=== PATIENT | male | born 1940 | race Caucasian/White ===

== ENCOUNTER 2024-06-11 22:40 | Inpatient (IN) | payer OTHER, MEDICARE, SELFPAY ==
[2024-06-11 19:26] VITALS: BP 111/76
--- NOTE | 2024-06-11 19:57 | ED.GENMED ---
History of Present Illness
General
Chief Complaint: Abdominal Symptoms
Source: patient and family (daughter)
Exam Limitations: dementia and other (Citizen Of [place] speeking)
Time Seen by Provider: 06/11/24 19:34
History of Present Illness
History of Present Illness:
This is a 84 year old male that comes in with c/o vomiting and slurred speech. Daughter states that last night he stared with Vomiting. States that he felt like he was going to vomit throughout the night. States that today he was very weak. States
that they brought hi to the kitchen table to have something to eat and she felt like his speech was slurred. States that he has had chest pain, SOB, loose stool and abd pain. States that he also c/o a headache. Denies any fever, chills, dizziness,
urinary burning.
Past History
Past History
ED Past Medical History: Arrthythmia (Atrial fib), GERD, Psychiatric (Anxiety, depression) and Other (Dementia Tuberculosis)
ED Past Surgical History: None
Social History
Tobacco: Former smoker
Alcohol: None
Personal:
Living: with family
Review of Systems
Review of Systems
Other source history: family
All Other Systems: ROS reviewed and negative except as documented in HPI and ROS
Constitutional: Reports no symptoms; Denies fever or chills
EENT: Reports no symptoms
Respiratory: Reports trouble breathing; Denies cough
Cardiac: Reports chest pain
ABD/GI: Reports abdominal pain, nausea and vomiting; Denies diarrhea
: Reports no symptoms; Denies dysuria, frequency or urgency
Musculoskeletal: Reports no symptoms
Skin: Reports no symptoms
Neurological: Reports headache; Denies dizzy
Psychiatric: Reports no symptoms
Phy Exam
General Physical Exam
General Presentation: mild distress
General age: appears stated age
General Skin: warm and dry
General Habitus: elderly
General Mental: usual mental status
General Hydration: appears well hydrated
ENT Exam
ENT Exam: TM's normal, pharynx normal and neck supple
Eye Exam
Eye Exam: EOMI
Cardiovascular Exam
Cardiovascular Exam: normal peripheral pulses and irregularly irregular
Pulmonary Exam
Pulmonary Exam: no respiratory distress, chest non tender, no rhonchi, no wheezing, no cough and other (Rales at bases)
Gastrointestinal Exam
Gastrointestinal Exam: normal bowel sounds, non tender, soft, no organomegaly, no pulsatile mass and non distended
NIH Stroke Score
Level of Consciousness: 0 - Alert
LOC questions: 0-Answers both correctly
LOC Commands: 0-Performs both correctly
Best Gaze: 0-Normal
Visual Simmons: 0=Normal, no visual loss
Facial palsy: 0=Normal, symmetrical
Motor - Right Arm: 0=No drift 10 seconds
Motor - Left Arm: 0=No drift 10 seconds
Motor - Right Le-No drift 5 seconds
Motor - Left Le-No drift 5 seconds
Limb Ataxia: 0-Absent
Sensation: 0-Normal
Best Language: 0-No aphasia
Dysarthria: 0-Normal
Extinction and Inattention: 0-No abnormality
Total Score:: 0
Musculoskeletal Exam
Musculoskeletal Exam: full ROM and no edema
Skin Exam
Skin Exam: normal color, warm/dry, no rash and no petechia
Psychiatric Exam
Psychiatric Exam: normal mood/affect
Course
Orders/Labs/Results
Orders:
Orders
06/11/24 19:41
Electrocardiogram (*1) Urgent
Reason for Study: Abdominal Pain
IV Insert/Care/Rem.- Treatment PRN
06/11/24 19:42
EKG- Treatment ONCE
06/11/24 19:51
Basic Metabolic Panel Urgent
COVID-19 Antigen Urgent
Source: Nasal Swab
Complete Blood Count/With Diff Urgent
NT-proBNP Urgent
Troponin I Urgent
06/11/24 19:56
CT Head W/o Iv Contrast Urgent
Comment:
Reason For Exam: Slurred speech,
06/11/24 19:57
CR Chest - 2 Views Urgent
Comment:
Reason For Exam: SOB, Chest pain
06/11/24 19:58
Ondansetron Injectable [Zofran] 4 mg IV NOW STA
06/11/24 20:30
Prothrombin Time Urgent
06/11/24 21:24
Azithromycin 500 mg/250 ml [Zithromax Infusion] 500 mg in 250 ml IV NOW
CefTRIAXone [Rocephin] 1,000 mg IV NOW STA
06/11/24 21:26
Furosemide [Lasix] 40 mg IV NOW STA
06/11/24 21:35
EKG- Treatment ONCE
06/11/24 21:47
Lactic Acid Urgent
Potassium Urgent
Blood Culture Urgent
ALENA Source: Blood/Venous
Specimen Description:
Blood Culture Urgent
ALENA Source: Blood/Venous
Specimen Description:
06/11/24 22:02
Aspirin 325 mg PO NOW STA
06/11/24 22:07
Admit/Transfer Patient As Directed
Co-Sign Provider:
Level of Care: Inpatient admission
Assign to:: IVU
Physician / Group: orion
Diagnosis: acute hypoxia
Reason for Hospitalization: acute hypoxia
Expected length of stay greater than two midnights?: Yes
ELOS- Estimated Length of Stay in days: 3
I certify the patient meets the requirements for IP care: Yes
PRN Pain Medication Management As Directed
May give lesser potent ordered pain med per pt: Yes
preference::
Protocol:: Medication orders for pain may be administered in a
manner that supports deferring to patient preference
when the pt is:
- Requesting an ordered lesser potent pain medication.
Least to most potent pain medications are defined
as: acetaminophen < NSAID < tramadol < opioids
(morphine, oxycodone, hydromorphone).
- Requesting a lesser dose of the same medication IF
ORDERED.
- Requesting a less intrusive route of administration
if both routes are prescribed by the provider (PO <
IV).
06/11/24 22:08
Code Status As Directed
Resuscitation Status: Do not resuscitate
Reached after discussion with pt or family/Healthcare POA: Yes
DNR Bracelet Application ONCE
06/11/24 22:13
CT Abdomen W/o Iv Contrast Routine
Comment:
Reason For Exam: abdominal pain
06/11/24 22:17
Heparin Protocol- PTT Orders As Directed
PTT per Heparin protocol: -Obtain CBC and baseline PTT - if not already collected.
-Obtain PTT 6 hours from start of infusion. Then, every 6 hours until 2 consecutive
PTT's are therapeutic. Then, PTT Daily.
-With each rate change, obtain PTT every 6 hours until 2 consecutive PTT's are
therapeutic. Then, PTT Daily.
Notify MD As Directed
Notify physician if: PTT is greater than or equal to 200.
06/11/24 22:30
Heparin 39339 Units/250 ml 25,000 units in 250 ml IV PER PROTOCOL
Weight to be used for heparin protocol in kilograms (kg):: 86.7
Protocol:: Cardiac Tx/Acute Coronary
PTT Goal Range to be used:: PTT 73 to 111 seconds
Order type:: Initial
INITIAL Infusion Dose (UNITS/KG/hr) & then follow protocol:: 12 units/kg/hr
Infusion Dose in UNITS/hr & then follow protocol (UNITS/hr):: 1,000
INFUSION RATE in mL/hr & then follow protocol (mL/hr):: 10
PTT less than or equal to 64 seconds:: Increase rate by 200 units/hr (+ 2 mL/hr)
PTT 64.1 to 72.9 seconds:: Increase rate by 100 units/hr (+ 1 mL/hr)
PTT 73 to 111 seconds:: Target Range. No change in rate.
PTT 111.1 to 130.9 seconds:: Decrease rate by 100 units/hr (- 1 mL/hr)
PTT 131 to 199.9 seconds:: HOLD for 1 hr. Then decrease rate by 200 units/hr (- 2 mL/hr)
PTT greater than or equal to 200 seconds:: HOLD for 2 hrs & Notify Provider. Then decrease by 200 units/hr (-
2 mL/hr)
Lab follow-up:: Each change, PTT q6h until 2 consecutive are therapeutic. Then PTT
daily.
06/11/24 22:36
Add On- LAB Stat
Tests Added?: ptt
06/11/24 22:45
Complete Blood Count/No Diff Urgent
Comment: Obtain baseline before beginning heparin infusion if not already collected
PTT Urgent
Comment: Obtain baseline before beginning heparin infusion if not already collected
Troponin I Urgent
06/11/24 22:50
Electrocardiogram (*1) Urgent
Reason for Study: Chest Pain
Other Reason for Exam: Repeat with Troponin
06/11/24 23:39
Urinalysis Reflex To Culture Urgent
Date Specimen was Collected: 06/11/24
Time Specimen was Collected: 23:37
06/12/24 00:37
Acetaminophen [Tylenol] 650 mg PO Q4HPRN PRN
Dextrose 50%-Water [Dextrose 50% Syringe] 12.5 grams IV [id number] PRN
Glucagon [GlucaGen] 1 mg IM PRN PRN
Ipratropium/Albuterol Sulfate [Duoneb] 3 ml INH R Q4HPRN PRN
06/12/24 00:37
CARDIOLOGY CONSULT Routine
Consulting Provider: Gama Thomas
Was physician already notified: Yes
Glycohemoglobin (HgbA1c) Routine
Legionella Urinary Antigen Routine
ALENA Source: Urine
Specimen Description:
Activity As Directed
Activity Level: Out of Bed-Early Mobility
Bedside Glucose Monitoring As Directed
Frequency: AC&HS
Additional Instructions:: Change to q6h if pt on TPN, tube feeding or not eating
INT (Intravenous Needle Therapy) As Directed
Comment: maintain peripheral IV access
Intake/ Output As Directed
Frequency: Per unit guidelines
Pneumatic Compression Sleeves As Directed
Type: Thigh high
Vital Signs As Directed
Frequency: Per unit guidelines
Vital Signs As Directed
Frequency: q4h
Weight As Directed
Frequency: Once
Comment: on admission
O2 Therapy [RESP] Routine
Titrate/Wean O2 to maintain O2 sat greater than (%): 95
Special Instructions: Wean as tolerated
Pt Eval And Treat Routine
Activity Level: As Tolerated
Speech Therapy Eval & Treat Routine
DX Deep Vein Thrombosis Video Routine
06/12/24 02:00
Electrocardiogram (*1) Q6H
Reason for Study: Chest Pain
Comment: at admission and Q3H for total of 3, to be done with each troponin
Troponin I Q3H
Comment: at admit & Q3H for 3 total including ED draws, obtain ECG with each level
Ondansetron Injectable [Zofran] 4 mg IV Q6HPRN PRN
06/12/24 05:00
Troponin I Q3H
Comment: at admit & Q3H for 3 total including ED draws, obtain ECG with each level
06/12/24 06:00
Echo 2D MMode Color/Doppler IN AM
Reason for Study: sob
NPO
Allow oral meds: Yes
Allow clear liquids: No
Basic Metabolic Panel IN AM
Cardiovascular Evaluation IN AM
Complete Blood Count/No Diff IN AM
TSH Reflex To Free T4 IN AM
06/12/24 07:30
Insulin Aspart Corrective Low [Novolog Flexpen-Low Resistance] See Protocol SC AC
06/12/24 08:00
Electrocardiogram (*1) Q6H
Reason for Study: Chest Pain
Comment: at admission and Q3H for total of 3, to be done with each troponin
Troponin I Q3H
Comment: at admit & Q3H for 3 total including ED draws, obtain ECG with each level
Aspirin Chewable [Low Strength Aspirin] 81 mg PO DAILY
06/12/24 11:00
Troponin I Q3H
Comment: at admit & Q3H for 3 total including ED draws, obtain ECG with each level
06/13/24 06:00
Basic Metabolic Panel IN AM
Complete Blood Count/No Diff IN AM
Complete Blood Count/No Diff Q2D
Comment: Notify MD if platelet count is <130,000 or decreases by 50% from baseline
06/14/24 06:00
Basic Metabolic Panel IN AM
Complete Blood Count/No Diff IN AM
06/15/24 06:00
Basic Metabolic Panel IN AM
Complete Blood Count/No Diff IN AM
Complete Blood Count/No Diff Q2D
Comment: Notify MD if platelet count is <130,000 or decreases by 50% from baseline
06/16/24 06:00
Basic Metabolic Panel IN AM
Complete Blood Count/No Diff IN AM
06/17/24 06:00
Complete Blood Count/No Diff Q2D
Comment: Notify MD if platelet count is <130,000 or decreases by 50% from baseline
06/19/24 06:00
Complete Blood Count/No Diff Q2D
Comment: Notify MD if platelet count is <130,000 or decreases by 50% from baseline
06/21/24 06:00
Complete Blood Count/No Diff Q2D
Comment: Notify MD if platelet count is <130,000 or decreases by 50% from baseline
06/23/24 06:00
Complete Blood Count/No Diff Q2D
Comment: Notify MD if platelet count is <130,000 or decreases by 50% from baseline
06/25/24 06:00
Complete Blood Count/No Diff Q2D
Comment: Notify MD if platelet count is <130,000 or decreases by 50% from baseline
06/27/24 06:00
Complete Blood Count/No Diff Q2D
Comment: Notify MD if platelet count is <130,000 or decreases by 50% from baseline
Abnormal Lab Results
06/11/24 06/11/24 06/11/24
19:51 20:30 21:47
WBC 26.8 H 10^3/uL
(4.8-10.8)
RBC 4.65 L 10^6/uL
(4.70-6.10)
Hgb 12.7 L g/dL
(13.0-18.0)
MCHC 32.4 L g/dL
(33.0-37.0)
RDW 16.9 H %
(11.5-14.5)
MPV 10.5 H fL
(7.4-10.4)
Abs Immat Gran (auto) 0.7 H 10^3/uL
(0-0.05)
Absolute Neuts (auto) 21.2 H 10^3/uL
(1.4-6.5)
Absolute Monos (auto) 3.6 H 10^3/uL
(0.1-0.6)
Immature Gran % 2.5 H %
(0-0.5)
Neutrophils % 79.4 H %
(42.2-75.2)
Lymphocytes % 4.4 L %
(20.5-51.1)
Monocytes % 13.6 H %
(1.7-9.3)
PT 16.8 H Sec
(11.4-14.6)
Potassium 5.2 H mmol/L
(3.5-5.1)
Carbon Dioxide 19 L mmol/L
(22-30)
BUN 47 H mg/dl
(9-20)
Creatinine 2.3 H mg/dL
(0.7-1.3)
Glucose 316 H mg/dl
(70-99)
Lactic Acid 2.7 H mmol/L
(0.7-2.0)
Troponin I 15.700 H* ng/ml
06/11/24 19:51
06/11/24 21:47
Leukocytosis, Hgb slightly low. PT 16.8 with INR 1.34, Co2 slightly low. acute renal insufficiency, Hyperglycemia. Troponin elevated 15.700, Pro-BNP 18,100, COVID negative.
Repeat Troponin 14.900
Vital Signs
Initial and Last Documented VS:
Initial Vital Signs
Temp Pulse Resp BP Pulse Ox
98.7 F 107 20 111/76 92
06/11/24 19:26 06/11/24 19:26 06/11/24 19:26 06/11/24 19:26 06/11/24 19:26
Last Documented Vital Signs
Temp Pulse Resp BP Pulse Ox
99.3 F 96 16 129/77 96
06/12/24 01:00 06/12/24 01:00 06/12/24 01:00 06/12/24 01:00 06/12/24 01:00
MDM/Problems Addressed
Differential Diagnosis Includes:
CVA, CHF, coronary syndrome, COVID
MDM/Problems Addressed:
This is a 84 year old male that comes in with c/o vomiting, chest pain, SOB and headache. Daughter states that he c/o chest pain, SOB and he started with vomiting last night.
Will check labs, Chest x-ray, CT head.
Back into see patient and daughter. Explained that he would be admitted as there is bilateral Pneumonia and his Troponin and Pro-BNP are very elevated. Will start on antibiotics and give IV Lasix. Hospitalist notified.
Repeat ECG: rate 105, Atrial fib, right axis, Normal QRS, T wave inversion I, aVL, V2, V3,
Chronic conditions affecting care: Arrhythmia (Atrial fib)
Acute Exacerbation and/or Progression of Chronic Illness: Arrhythmia (Atrial fib)
*Radiology
Radiology exam reviewed: radiology read reviewed (Chest- bibasilar opacities most suspicious for Pneumonia CT head-No acute intracranial abnormality. Chronic Senescent changes and multiple chronic infarcts, as detailed above. )
*Pulse Oximetry
Patient hypoxic: no
*EKG
Interpreted by ED Provider?: Yes
Heart Rate: 102
Rate: tachycardiac
Rhythm: a-fib
[place]: right axis deviation
QRS Pattern: normal QRS
Ischemia: T-wave inversion (I, aVL, V3, V4, V5, V6, )
*Physical Security Specialist Interpretation
Rate: tachycardiac
Interpretation: abnormal
Heart Rate: 116
Rhythm: a-fib
*Critical Care Note
Total Time (30-74mins, 75-104mins- exclusive of procedures): Not Applicable
ED Attending Note
-
Portions of this chart may have been created with voice recognition software.� Occasional wrong word or��sound alike� substitutions may have occurred due to the inherent limitations of voice recognition software.
Discharge Plan
Departure
Patient Disposition: Admit
Date of Disposition: 06/11/24
Time of Disposition: 21:34
Admit to: Telemetry
Presentation/result/management discussed w/ accepting MD/DO: Hospitalist
Patient with high blood pressure during this ER visit?: No
Condition: Good
Covid-19: Negative COVID-19
Discharge Problem:
Pneumonia of both lower lobes, Elevated troponin
Interventions
Interventions:
*Risk Screen - Suicide Last Done: 06/12/24 00:52
*General Assessment Last Done: 06/11/24 19:26
*Neglect/Abuse Screening Last Done: 06/11/24 19:39
*ED COVID-19 Vaccine History Last Done: 06/12/24 00:52
*Nursing Disposition Last Done: 06/12/24 00:49
YO-Fncnzn-Hlbahouwkj Assessment Last Done: 06/11/24 23:55
Discharge Date and Time
Discharge Date/Time: 06/12/24 00:50
[2024-06-11 20:15] LABS: COVID-19 Antigen Negative (Negative); Hematocrit 39.2 % (39.0-52.0); Hemoglobin 12.7 g/dL (13.0-18.0); Mean Corp Hgb Conc. 32.4 g/dL (33.0-37.0); Mean Corpuscular Hgb 27.3 pg (27.0-31.0); Mean Corpuscular Volume 84.3 fL (80.0-94.0); Mean Platelet Volume 10.5 fL (7.4-10.4); Platelet Count 205 10^3/uL (130-400); Red Blood Cell Count 4.65 10^6/uL (4.70-6.10); Red Cell Dist. Width 16.9 % (11.5-14.5); White Blood Cell Count 26.8 10^3/uL (4.8-10.8)
[2024-06-11 20:23] LABS: Blood Urea Nitrogen 47 mg/dl (9-20); Calcium 9.3 mg/dl (8.4-10.2); Carbon Dioxide 19 mmol/L (22-30); Chloride 104 mmol/L (98-107); Glucose 316 mg/dl (70-99); Sodium 137 mmol/L (135-145); eGFR 26.98
[2024-06-11] MEDS: ZOFRAN 4 MG IV (20:31)
[2024-06-11 20:33] LABS: NT-proBNP 18100 pg/ml
[2024-06-11 20:37] LABS: % Basophils 0.1 % (0-2); % Immature Granulocytes 2.5 % (0-0.5); % Lymphocytes 4.4 % (20.5-51.1); % Monocytes 13.6 % (1.7-9.3); % Neutrophils 79.4 % (42.2-75.2); Absolute Immature Granulocytes 0.7 10^3/uL (0-0.05); Absolute Lymphocytes 1.2 10^3/uL (1.2-3.4); Absolute Monocytes 3.6 10^3/uL (0.1-0.6); Absolute Neutrophils 21.2 10^3/uL (1.4-6.5); Nucleated Red Blood Cells % 0 % (-)
[2024-06-11 20:55] LABS: INR 1.34; PT 16.8 Sec (11.4-14.6)
[2024-06-11 21:30] VITALS: BP 172/84
--- NOTE | 2024-06-11 21:34 | HPS.HSE ---
Family Physician
-
Family Physician: NOT KNOW UNKNOWN - PT DOES
Chief Complaint
-
vomiting
History of Present Illness
84 year old with PMH for GOUT, Heart murmur,CKD,Alzheimer disease, GOUT presented to us vomiting and right upper abdominal pain since last night. today he was noted weak and trouble speaking today. . he was complaining of chest pain as well. he was
noted worsening sob. denied diarrhea. denied dysuria or hematuria. denied weight gain or swelling .
In er noted elevated trop, chest x ray with pneumonia. and he was requiring 2l of oxygen. patient was administered ceftriaxone, zithro and Lasix in ER. admitting for further management.
Medical History
Past Medical History
Past Medical History: Reports Other
Additional Past Medical History:
CKD stage 3b
htn
Alzheimer disease
dementia
Past Surgical History: Reports None
Social History
Tobacco: Former Smoker
Alcohol: Former
Drug: None
Personal:
Living: With Family
Family History
Family History: Not pertinent
Allergies / Home Medications
Allergies reflects when Allergies were last updated in [employer].
Home Medications with original date entered in [employer]
Allergy/Medication List:
Allergies
Allergy/AdvReac Type Severity Reaction Status Date / Time
No Known Allergies Allergy Verified 01/26/21 11:42
Home Medications
colchicine 0.6 mg tablet 0.6 mg PO BIDPRN PRN gout 10/19/22
Review of Systems
-
Constitutional: Reports Fatigue and Chills
EENT: Reports No Symptoms
Respiratory: Reports Trouble Breathing
Cardiac: Reports Chest Pain
Abdomen/GI: Reports Abdominal Pain and Vomiting
: Reports No Symptoms
Musculoskeletal: Reports No Symptoms
Skin: Reports No Symptoms
Neurological: Reports No Symptoms
Endocrine: Reports No Symptoms
Hematologic/Lymphatic: Reports No Symptoms
Psych: Reports No Symptoms
Physical Exam
Vital Signs
Vital Signs
Temp Pulse Resp BP Pulse Ox
98.7 F 107 20 111/76 92
06/11/24 19:26 06/11/24 19:26 06/11/24 19:26 06/11/24 19:26 06/11/24 19:26
Physical Exam
General: Well Developed, Well Nourished and No Apparent Distress
HEENT: NormoCephalic, Moist mucous membranes and Atraumatic
Respiratory: Clear
Cardiac: S1/S2 and Regular Rhythm; No Murmur or Rub
GI: Soft, Non Tender, Non Distended, Normal Bowel Sounds and Tender; No Organomegaly
Rectal: Deferred by Provider
Musculoskeletal: No Clubbing, No Cyanosis and No Edema
Skin: No Rash
Neuro: Nonfocal/grossly intact
Psych: Calm
Laboratory Results
-
06/11/24 19:51
06/11/24 19:51
Laboratory Results
PT 16.8 Sec (11.4-14.6) H 06/11/24 20:30
INR 1.34 06/11/24 20:30
Total Bilirubin Cancelled 06/11/24 19:51
AST Cancelled 06/11/24 19:51
ALT Cancelled 06/11/24 19:51
Alkaline Phosphatase Cancelled 06/11/24 19:51
Troponin I 15.700 ng/ml H* 06/11/24 19:51
Data Reviewed
-
Diagnostic Radiology: Report Reviewed by me
Lab Data: Labs Reviewed by me
Impression/Plan
-
#acute hypoxic respiratory failure likely from bilateral pneumonia
-wbc 26.8
-covid negative
-chest x ray with Bibasilar opacities most suspicious for pneumonia.
-will continued iv zosyn
-Tylenol prn for fever and pain
-continue supplemental oxygen to keep sat>92
-wean as tolerated
-ctm
-nebs prn for sob and wheezing
#new onset atrial fib
-HR controlled
-ctm
-EKG with atrial fib
#right upper quad pain associated with vomiting/nausea
-will keep patient NPO
-speech consult
-obtain CT abdomen and pelvis
#anemia of chronic disease
-hgb sable at 12.7
-no active bleeding
-ctm
#acute kidney injury on CKD stage 3b
-cr 2.3
-ctm
# hyperglycemia
-blood sugar 316
-will obtain a1c
-sliding scale
#elevated trop likely NSTEMI
-trop 15.700
-trend trop, asa and heparin drip
-will obtain TSH, ECHO
-cardiology consulted
#BNP 26563
-patient not overloaded
-ctm
-received a dose of Lasix in ER
#Alzheimer's Dementia
History of gout
-on colchicine prn
DVT ppx: SC Heparin
Code Status: DNR confirmed with daughter
[2024-06-11] MEDS: ROCEPHIN 1000 MG IV (21:38)
[2024-06-11] MEDS: LASIX 40 MG IV (21:39)
[2024-06-11] MEDS: ZITHROMAX INFUSION 250 IV (21:39)
[2024-06-11 22:07] LABS: Potassium 5.2 mmol/L (3.5-5.1)
[2024-06-11 22:09] LABS: Lactic Acid 2.7 mmol/L (0.7-2.0)
[2024-06-11 22:14] VITALS: BMI 30.9
--- NOTE | 2024-06-11 22:21 | W.PN.UPDATE ---
Addendum entered and electronically signed by Krystal Tang MD 06/11/24 22:51:
Changed antibiotic to zosyn.
Original Note:
Update Note
Progress Note Update
This is an addendum to the H&P written by Faith Arshad on 06/11/2024.� Patient seen and examined independently with LEGAL WRITING PROFESSOR.
84-year-old Ethiopian/[place]vian speaking male past medical history of anxiety/depression, Alzheimer's dementia, gout, CKD, presenting with right upper quadrant abdominal pain and vomiting episode yesterday.
He reportedly had chest pain earlier today although very poor historian and does not complain of symptoms.� No history of cardiac problems.
Patient arrives in new onset atrial fibrillation
Labs show leukocytosis of 26.� Creatinine of 2.3.� Potassium 5.2.� Blood sugar of 316.� Lactic acid 2.7.� Troponin 15.� EKG shows atrial fibrillation with slightly elevated heart rate of 102.� There appear to be T wave inversions diffusely ST
depressions in anterolateral leads.� Chest x-ray shows bibasilar opacities suspicious for pneumonia.� COVID-negative.� Cardiac BNP of 18,000.
Chief problem appears to be NSTEMI.� Trend troponins.� Aspirin started.� Heparin drip.� Check echocardiogram.� Patient also new onset atrial fibrillation.� Check TSH.
Patient with leukocytosis and evidence of pneumonia on chest x-ray.� He is also having right upper quadrant abdominal pain.� Check CT abdomen pelvis.� COVID-negative.� Blood cultures pending.� Start ceftriaxone/azithromycin.� NPO.� Lasix was given
by ER although not overtly volume overloaded.
Likely has untreated diabetes.� Check hemoglobin A1c and start insulin sliding scale.
[2024-06-11 22:53] LABS: Hematocrit 38.5 % (39.0-52.0); Hemoglobin 12.7 g/dL (13.0-18.0); Mean Corpuscular Hgb 27.5 pg (27.0-31.0); Mean Corpuscular Volume 83.3 fL (80.0-94.0); Mean Platelet Volume 10.2 fL (7.4-10.4); Platelet Count 203 10^3/uL (130-400); Red Blood Cell Count 4.62 10^6/uL (4.70-6.10); White Blood Cell Count 27.9 10^3/uL (4.8-10.8)
[2024-06-11 23:00] VITALS: BP 136/77
[2024-06-11 23:05] LABS: APTT 27.8 Sec (23.4-35.0)
[2024-06-11] MEDS: ASPIRIN 325 MG PO (23:14)
[2024-06-11] MEDS: HEPARIN 25000 UNITS/250 ML IV (23:15)
[2024-06-11 23:53] LABS: Urine Albumin Trace (Neg - Trace); Urine Bilirubin Negative (Negative); Urine Character Clear (Clear); Urine Color Yellow; Urine Glucose Negative (Negative); Urine Ketone Negative (Negative); Urine Leukocyte Negative (Negative); Urine Nitrite Negative (Negative); Urine Occult Blood Negative (Negative); Urine Urobilinogen Negative (Neg - 1+)
[2024-06-12] VITALS (30 sets, daily range): BP systolic 96–161; BP diastolic 62–92; PULSE 98; BMI 28.2
--- NOTE | 2024-06-12 00:18 | W.PN.UPDATE ---
Update Note
Progress Note Update
CT abdomen result shown
Large 2.0x2.0 cm gallstone in the neck of gallbladder. Mildly distended gallbladder with pericholecystic fat stranding and edema concerning of acute cholecystitis. No biliary dilatation.
Small mildly hyperdense exophytic 2.0x2.0 cm lesion from lower RT kidney. No hydronephrosis bilaterally.
Prominent vascular classifications. No AAA.
Small to moderate hiatal hernia.
Mild subsegmental atelectasis at the lung bases. Coronary artery calcifications. Mild cardiomegaly.
Mild degenerative change within the spine.
Patient currently NPO and on zosyn Abx, will add surgery consult.
[2024-06-12] MEDS: DILAUDID 0.25 MG IV (03:00)
[2024-06-12] MEDS: ZOSYN 50 IV ×4 (03:43→22:00)
--- NOTE | 2024-06-12 05:12 | PTCARENOTE ---
Rec'd pt from ED at 0200. PT on TELE monitor in Afib with HR in the 90-100's, VSS, and pt AAO*2. Pt disoriented to time but aware of self and place. Pt nonverbal at times and forgetful at baseline. Pt complained of pain to caregiver and Dilaudid
one time dose given as ordered. Pt with heparin infusing at 1000 units per hour. Pt refused to answer abuse screening from admission with driver merchandiser. RN oriented to pt to unit, room, and call shook with daughter at bedside but placed on bedalarm
for safety given confusion and hx of dementia. Pt resting with call shook in reach and bed alarm activated.
[2024-06-12 05:52] LABS: Hematocrit 37.1 % (39.0-52.0); Mean Corp Hgb Conc. 32.3 g/dL (33.0-37.0); Mean Corpuscular Hgb 27.5 pg (27.0-31.0); Mean Corpuscular Volume 85.1 fL (80.0-94.0); Platelet Count 196 10^3/uL (130-400); Red Blood Cell Count 4.36 10^6/uL (4.70-6.10); Red Cell Dist. Width 16.9 % (11.5-14.5); White Blood Cell Count 22.5 10^3/uL (4.8-10.8)
[2024-06-12 06:00] LABS: APTT 39.2 Sec (23.4-35.0)
[2024-06-12 06:15] LABS: Blood Urea Nitrogen 50 mg/dl (9-20); Calcium 9.2 mg/dl (8.4-10.2); Carbon Dioxide 21 mmol/L (22-30); Chloride 105 mmol/L (98-107); Estimated Creatinine Clearance 18 ml/min; Glucose 158 mg/dl (70-99); HDL Cholesterol 39 mg/dl; LDL Cholesterol, Calculated 64 mg/dl; Potassium 5.2 mmol/L (3.5-5.1); Sodium 141 mmol/L (135-145); Total Cholesterol 115 mg/dl (50-199); Triglyceride 62 mg/dl (10-149); Very Low Density Lipoprotein 12 mg/dl (0-30); eGFR 23.29
[2024-06-12 06:53] LABS: TSH Reflex To Free T4 3.03 uIU/ml (0.47-4.68)
[2024-06-12 06:57] LABS: Glucose - Point of Care 141 mg/dl (70-99)
--- NOTE | 2024-06-12 07:52 | CON.CAR ---
Addendum entered and electronically signed by Gama Thomas MD 06/12/24 12:39:
84-year-old Bolivian-speaking man admitted June 11 with right upper quadrant pain, nausea vomiting and RAFAL on CKD. C CT of abdomen shows cholecystitis with stone in neck of gallbladder, white count 26, troponin 15.7, proBNP 18,100. Diffuse ST
changes slightly worse on EKG. dementia is significant he cannot feed himself. He knows daughter and his . Walks minimally with assistance.
PMH: permanent atrial fibrillation, heart failure with improved EF, mitral regurgitation, CKD, hypertension, Alzheimer's dementia, anemia
Allergies: None
SH: , lives with daughter, former smoker, former alcohol
Outpatient meds: Listed as just colchicine
Current meds: IV heparin, aspirin 81 mg a day, insulin sliding scale and piperacillin
139/82, pulse 106, respiratory 20, afebrile, sats 95%, no acute distress head neck exam unremarkable, limited exam, diminished breath sounds at bases, irregular rate and rhythm, no obvious murmurs JVD okay, abdomen surprisingly tender, extremities
without much edema
Chest x-ray effusions, vascular congestion versus pneumonia
EKG: Atrial fibs, lateral and anterior ST depression, relatively rapid ventricular response
Hemoglobin 12, white count 22.5, potassium 5.2, BUN/creatinine 52.6, creatinine was 1.8
September 2022, proBNP 18,000 100, troponin flat at 16.4
Plan:
He presents with myocardial injury that is probably non-ACS related related to increased demand superimposed on underlying obstructive CAD. He has permanent atrial fibrillation with a ventricular response that is reasonable despite the absence of
beta-blockers, etc.
His current acute issue is cholecystitis. He has significant acute kidney injury on CKD.
I discussed options with daughter. Daughter believes he would want cholecystostomy tube despite his poor quality of life.
Regarding his presumed non-ACS troponin myocardial injury he can proceed as planned with cholecystostomy tube at elevated but not prohibitive cardiac risk. Daughter is aware of our inability to predict serious or life-threatening complications,
would estimate risk as less than 10% mortality short-term while in hospital.
Await echocardiogram.
No role for invasive procedures from a cardiac standpoint given current situation.
Consider renal consultation
Eventually consider anticoagulation, beta-campos, etc. other optimization of GDMT MT as possible.
Original Note:
Consultation
Consultation Request
Date/Time Consultation Requested: 06/11/2024
Date/Time Consultation Performed: 06/12/2024
Requesting Provider: Dr. Tang
Performing Provider: Trinidad Pena PA-C for Dr. LENNY Thomas
Reason for Consultation: abnormal troponin
Medical History
-
History of Present Illness:
Patient is an 84-year-old male with past medical history significant for permanent atrial fibrillation, recovered cardiomyopathy, mitral regurgitation, CKD, hypertension, Alzheimer dementia, chronic anemia who presents to emergency department
06/11/2024 with complaints of right upper abdominal pain, nausea, shortness of breath and chest discomfort. Patient found to have leukocytosis of 26 and RAFAL on CKD. Chest x-ray concerning for bilateral pneumonia. CT of abdomen with gallstone in
neck of gallbladder with mildly distended gallbladder and pericholecystic fat stranding and edema concerning of acute cholecystitis. ProBNP elevated at 18,100. Elevated troponin 15.7 initially and slowly trending up. EKG shows atrial fibrillation
with reasonably controlled ventricular response and slightly worsening ST-T wave abnormality concerning for anterolateral ischemia. Patient received 1 dose of IV Lasix in emergency department and started on IV antibiotics. Patient currently n.p.o.
Patient's daughter at bedside. She helps to provide some history. Patient follows with [facility] for primary care and does not have outside sign manufacturer. Primary care physician does housecalls. Daughter does not think he has had an
EKG recently. She was unaware that he had any cardiac conditions. She reports he has dementia and is rather nonambulatory. He is able to ambulate very short distances with assistance utilizing a walker.
PMH:
Permanent atrial fibrillation
Chronic heart failure with reduced ejection fraction
Cardiomyopathy
Mitral regurgitation
CKD stage 3b
htn
Alzheimer disease
dementia
Gout
Chronic anemia
Prior bilateral strokes
Past Medical History
Past Medical History: Other (See HPI)
Past Surgical History: None
Social History
Tobacco: Former Smoker
Alcohol: Former
Drug: None
Living: [facility]ent[facility]
Family History
Family History: Reviewed & Not Pertinent
Allergies / Home Medications
Allergy/AdvReac Type Severity Reaction Status Date / Time
No Known Allergies Allergy Verified 01/26/21 11:42
�Medication �Instructions �Recorded �Confirmed �Type
colchicine 0.6 mg tablet 0.6 mg PO BIDPRN PRN gout 10/19/22 06/11/24 History
Review of Systems
-
History Source: Family (daughter)
Physical Exam
Vital Signs
Temp Pulse Resp BP Pulse Ox
98.1 F 105 18 142/75 95
06/12/24 07:00 06/12/24 05:45 06/12/24 07:00 06/12/24 05:43 06/12/24 07:00
GEN: No distress, pleasantly demented, in no acute distress
HEENT: supple, anicteric, mmm
LUNGS: Coarse breath sounds bilaterally CTA, with faint wheezes
CV: Irregularly irregular, S1/S2, no murmur, rub or gallop
ABD: soft, BS+, NT/ND
EXT: Trace edema bilateral
NEURO: Gross non-focal
SKIN: No rash
Lab Results
06/12/24 05:38
06/12/24 05:38
Troponin I 16.400 ng/ml H* 06/12/24 05:38
Gnn-I-Ykxmsufqarj Pept 96558 pg/ml 06/11/24 19:51
Impression / Plan
-
PCP: [facility]
Grain Operator: none prior to admission, initial consult Dr. Gama Thomas
Impression:
Presented 06/11/2024 with right upper abdominal pain with vomiting, chest pain, shortness of breath
Acute cholecystitis
Acute hypoxic respiratory insufficiency
Bilateral pneumonia
Leukocytosis
Abnormal troponin, suspect NSTEMI
Acute heart failure with preserved ejection fraction proBNP 18,100
Hyperkalemia
RAFAL on CKD
Permanent atrial fibrillation
Cardiomyopathy, recovered
Mitral regurgitation
CKD stage 3b
htn
Alzheimer disease
dementia
Gout
Chronic anemia
Prior bilateral strokes
Echo 06/12/2024: EF 55 to 60%, mild concentric LVH, mild MR, mild AI
Echo 06/20/2013: EF 35 to 40%, global hypokinesis, moderate MR
Plan:
Presented 06/11/2024 with right upper abdominal pain with vomiting, chest pain, shortness of breath
CT of abdomen with large gallstone in neck of gallbladder as well as mildly distended gallbladder with pericholecystic fat stranding and edema concerning of acute cholecystitis. Continue antibiotics. Currently n.p.o. per primary service. Surgery
has been consulted
Acute hypoxic respiratory insufficiency with chest x-ray concerning for bilateral pneumonia on chest x-ray. Continue antibiotics per primary service.
Blood cultures pending. COVID-negative
Abnormal troponin initial 15.7 and slowly trending upward. Concern for NSTEMI. Continue to monitor and trend to peak. EKG with atrial fibrillation with slightly worsening ST-T wave abnormality in annika-lateral leads. Continue IV heparin. If able
to tolerate orals start low dose beta-campos. CKD current prevents initiation of CRIS/ARB at this time
Acute heart failure with preserved ejection fraction, proBNP 18,100. Given dose of IV Lasix in emergency department. Would continue IV diuresis.
Echo from 2012 showed global hypokinesis with a EF of 35 to 40% and moderate MR. Repeat echo this admission shows recovered ejection fraction with mild MR and AI.
Found to have atrial fibrillation on admission. This appears to be permanent upon review of prior EKGs going back as far as 2020 patient was in rate atrial fibrillation. Rate control appears to be reasonable not on any AV kandi blockers.
Patient currently on heparin drip. Will need to consider eventual anticoagulation if no procedures are planned. Unclear why patient was not on OAC prior to admission. Although daughter reports she was never told he had an irregular heart rhythm.
HPI 06/12/2024:
Patient is an 84-year-old male with past medical history significant for permanent atrial fibrillation, cardiomyopathy recovered, mitral regurgitation, CKD, hypertension, Alzheimer dementia, chronic anemia who presents to emergency department
06/11/2024 with complaints of right upper abdominal pain, nausea, shortness of breath and chest discomfort. Patient found to have leukocytosis of 26 and RAFAL on CKD. Chest x-ray concerning for bilateral pneumonia. CT of abdomen with gallstone in
neck of gallbladder with mildly distended gallbladder and pericholecystic fat stranding and edema concerning of acute cholecystitis. ProBNP elevated at 18,100. Elevated troponin 15.7 initially and slowly trending up. EKG shows atrial fibrillation
with reasonably controlled ventricular response and slightly worsening ST-T wave abnormality concerning for anterolateral ischemia. Patient received 1 dose of IV Lasix in emergency department and started on IV antibiotics. Patient currently n.p.o.
Patient's daughter at bedside. She helps to provide some history. Patient follows with [facility] for primary care and does not have outside sign manufacturer. [facility] Daughter does not think he has had an
EKG recently. She was unaware that he had any cardiac conditions. She reports he has dementia and is rather nonambulatory. He is able to ambulate very short distances with assistance utilizing a walker.
Data Reviewed
-
EKG: Report Reviewed by me, Discussed with Physician, Discussed with Patient and Discussed with Family
Radiology: Report Reviewed by me, Discussed with Physician, Discussed with Patient and Discussed with Family
CT Scan: Report Reviewed by me, Discussed with Physician, Discussed with Patient and Discussed with Family
Medical Tests (Nuc Med, Echo etc): Image Personally Visualized and interpreted, Report Reviewed by me, Discussed with Physician, Discussed with Patient and Discussed with Family
Labs: Labs Reviewed by me, Discussed with Physician and Discussed with Nurse
Old Records: Reviewed
[2024-06-12] MEDS: LOW STRENGTH ASPIRIN 81 MG PO (08:12)
[2024-06-12] MEDS: NOVOLOG FLEXPEN-LOW RESISTANCE SC ×3 (08:32→17:52)
[2024-06-12 08:38] LABS: Glycohemoglobin (HgbA1c) 5.2 % (4.0-5.6)
[2024-06-12 09:50] LABS: ALT (SGPT) 20 U/L (0-50); AST (SGOT) 110 U/L (17-59); Albumin 3.6 g/dl (3.5-5.0); Alkaline Phosphatase 76 U/L (38-126); Direct Bilirubin 0.3 mg/dl (0.0-0.4); Total Bilirubin 1.6 mg/dl (0.2-1.3); Total Protein 7.5 g/dl (6.3-8.2)
--- NOTE | 2024-06-12 11:16 | CON.GS ---
Medical History
-
Chief Complaint: Abdominal pain and weakness
History of Present Illness:
Patient is a 84 yo M with a PMH of Alzheimer's disease, dementia, HTN, HLD, CHF, and CKD who presents with malaise and RIGHT sided abdominal discomfort. Patient is Lithuanian-speaking only. Daughter at bedside provides translation services. Symptoms
began Tuesday evening with nausea and vomiting. Daughter initially attributed his symptoms to consistency of food, which she states has been an issue in the past. His symptoms persisted. Associated malaise, slurred speech, and low-grade fevers.
Associated RIGHT sided abdominal discomfort. No reports of jaundice, pale stools, or tea colored urine. No reports of chest pain or worsening shortness of breath. He was admitted overnight to the cardiac ICU with A-fib and concern for a NSTEMI.
Past Medical History
Past Medical History: Arrhythmias (Afib), CHF, HTN, Psychiatric (Alzheimer's dementia) and Renal Failure
Past Surgical History: None
Social History
Tobacco: Non-Smoker
Alcohol: Former
Drug: None
Personal:
Living: With Family
Family History
Family History: Reviewed & Not Pertinent
Allergies / Home Medications
Allergy/AdvReac Type Severity Reaction Status Date / Time
No Known Allergies Allergy Verified 01/26/21 11:42
�Medication �Instructions �Recorded �Confirmed �Type
colchicine 0.6 mg tablet 0.6 mg PO BIDPRN PRN gout 10/19/22 06/11/24 History
Review of Systems
-
A 10 point review of systems was completed, and was negative except as per HPI.
Physical Exam
Vital Signs
Temp Pulse Resp BP Pulse Ox
97.4 F 105 20 135/79 95
06/12/24 11:14 06/12/24 09:00 06/12/24 11:14 06/12/24 08:00 06/12/24 11:14
06/11/24 06/12/24 06/13/24
06:59 06:59 06:59
Actual Weight 76.9 kg
Body Mass Index (BMI) 28.2
Lab Results
06/12/24 05:38
06/12/24 05:38
WBC 22.5 10^3/uL (4.8-10.8) H 06/12/24 05:38
Hgb 12.0 g/dL (13.0-18.0) L 06/12/24 05:38
Hct 37.1 % (39.0-52.0) L 06/12/24 05:38
Plt Count 196 10^3/uL (130-400) 06/12/24 05:38
Abs Immat Gran (auto) 0.7 10^3/uL (0-0.05) H 06/11/24 19:51
Neutrophils % 79.4 % (42.2-75.2) H 06/11/24 19:51
Physical Exam
General: Well Developed, Well Nourished and No Apparent Distress
HEENT: Normocephalic and Anicteric
Respiratory: Non Labored Respirations
Cardiac: Irregular Rhythm
GI: Soft, Non Distended, Tender (mild RUQ), Obese and Other (Non-peritoneal)
Musculoskeletal: No Edema
Skin: Warm and Dry
Neuro: Nonfocal/Grossly Intact
Data Reviewed
-
CT Scan: Image Personally Visualized and interpreted and Report Reviewed by me
Labs: Labs Reviewed by me
Assessment / Plan
-
Patient is an 84 yo M p/w acute cholecystitis in the setting of A-fib and NSTEMI
The natural history and pathophysiology of biliary and stone disease was briefly reviewed. Workup including labs and imaging were reviewed; LFTs and bilirubin pending. Options for management including antibiotics alone, percutaneous
cholecystostomy tube, and cholecystectomy were considered and briefly discussed. Significantly increased risk for general anesthesia at this time given his atrial fibrillation and likely heart attack. He is also at increased risk for complications
given his dementia and CKD. Recommend and plan for cholecystostomy tube placement. Family agrees and willing to proceed. Will need to hold heparin drip for 4 to 6 hours periprocedurally. All questions answered.
-- IR cholecystostomy tube
-- NPO, IVF
-- Abx Zosyn
-- Hold Hep gtt per IR and timing of procedure
--- NOTE | 2024-06-12 12:32 | CM ---
Reviewed chart. Met with Mr. Gallagher and daughter to review discharge plans. Daughter states prior to admission he resides with his daughter in a one story home with two steps to enter. She states prior to admission he ambulates with a rolling
walker. He has a rolling walker at home. She states she assists him with adls. She states he has a prescription plan and uses [facility]. We reviewed [facility] and she is agreeable to [facility]. Telephone call to
[facility] to make the referral. Sent the referral. Medical work-up in progress. The discharge plan is to return home with her daughter and [facility] when medically stable.
[2024-06-12 13:09] LABS: APTT 39.5 Sec (23.4-35.0)
[2024-06-12 13:21] LABS: Glucose - Point of Care 148 mg/dl (70-99)
--- NOTE | 2024-06-12 13:59 | W.PN.HOSP.TC ---
Today's Communication/Plan
-
Intervention radiology for percutaneous cholecystostomy.
IV antibiotics per
Aspiration precautions.
IV heparin.
Adjustment of cardiac regimen for non-STEMI/A-fib
Plan of care discussed with cardiology, surgery, patient's daughter at the bedside, nursing
Assessment / Plan
Assessment / Plan
Impression:
Presentation with acute onset of nausea, vomiting and right upper quadrant pain.
Acute cholecystitis
Bilateral pneumonia possibly secondary due to aspiration acute versus chronic.
Non-STEMI in the settings of acute cholecystitis.
Acute CHF preserved EF.
RAFAL on CKD stage IIIb.
Hyperkalemia
Other conditions:
Permanent atrial fibrillation
Recovered likely ischemic cardiomyopathy.
Mitral regurgitation
CKD stage IIIb with baseline creatinine 1.5�1.8.
Essential hypertension.
Prior strokes
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
Chronic normocytic anemia.
Gout.
Plan:
Acute cholecystitis
Patient presented with acute onset of nausea vomiting and right upper quadrant pain
Elevated white count
Mildly abnormal LFTs with mixed picture of transaminitis and bilirubin elevation
CT scan of the abdomen pelvis findings consistent with stone in gallbladder neck
Not septic on presentation.
Exam relatively benign
In discussion with surgery and given patient's presentation with non-STEMI as well as other risk factors not limited to RAFAL and CKD, dementia, patient would be a poor candidate for surgical intervention.
Plan is for percutaneous cholecystostomy tube placed by interventional radiology
Continue antibiotics.
Bilateral pneumonia.
Suspect acute on chronic aspiration less likely community-acquired pneumonia.
Empiric antibiotics single dose of ceftriaxone/Zithromax in ED. Transition to Zosyn to cover intra-abdominal pathogens with acute cholecystitis.
Speech and swallow evaluation when diet advanced.
Continue aspiration precautions
Monitor oxygen level
Acute non-STEMI likely in the settings of acute cholecystitis with possibly underlying CAD.
Echocardiogram with recovered EF with no regional wall motion abnormalities.
Troponin peaked at 16
Currently chest pain-free.
Initiated on IV heparin which will be interrupted for percutaneous cholecystostomy placement.
Monitor hemodynamics
Eventually GDMT including beta-blockers, aspirin, statin
Acute CHF preserved EF
Noted with elevated pro CHF BNP.
Stable respiratory status currently with no requirements for supplemental oxygen.
Chest x-ray with bibasilar infiltrate not consistent with pulmonary edema.
Status post single dose of Lasix provided in ED.
Monitor volume status closely
Permanent atrial fibrillation
Normal TSH
Rate controlled.
Not on antiarrhythmics oral rate control agents prior to admission
Not on anticoagulation.
CT scan with multiple old infarcts.
Monitor rate and rhythm with
Eventually discussion in regards to chronic anticoagulation.
RAFAL on CKD stage IIIb.
Follow creatinine
Bladder scan.
Avoid hypotension and nephrotoxic agents
Gout
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
DVT prophylaxis/heparin
CODE STATUS DNR
Anticipated Discharge: > 48 hours
Subjective/Interval History
-
Date of Service: June 12, 2024
Objective Data
-
Labs:
Laboratory Results
06/12/24 06/12/24
05:38 12:24
WBC 22.5 H
Hgb 12.0 L
Hct 37.1 L
Plt Count 196
APTT 39.2 H 39.5 H
Sodium 141
Potassium 5.2 H
Chloride 105
Carbon Dioxide 21 L
BUN 50 H
Creatinine 2.6 H
Glucose 158 H
Calcium 9.2
Total Bilirubin 1.6 H
AST 110 H
ALT 20
Alkaline Phosphatase 76
Vital Signs:
Vital Signs
Temp Pulse Resp BP Pulse Ox
97.4 F 106 20 139/82 95
06/12/24 11:14 06/12/24 11:15 06/12/24 11:14 06/12/24 11:14 06/12/24 11:14
I&O
06/11/24 06/12/24 06/13/24
06:59 06:59 06:59
Intake Total 100 / 100
Balance 100 / 100
Physical Exam
-
General: Well Developed and No Apparent Distress
HEENT: Normocephalic, Atraumatic and Moist Mucous Membranes
Respiratory: Clear to Auscultation
Cardiac: S1/S2 and Irregular Rhythm; Negative Murmur, Rub or Gallop
GI: Soft, Nontender, Nondistended and Normal Bowel Sounds; Negative Organomegaly
Rectal: Deferred by Provider
Musculoskeletal: No Clubbing, No Cyanosis and No Edema
Skin: Negative Rash
Neuro: Awake, Alert, Oriented (Name only) and Nonfocal/Grossly Intact
[2024-06-12 18:10] LABS: Glucose - Point of Care 133 mg/dl (70-99)
[2024-06-12 19:12] LABS: Glucose - Point of Care 116 mg/dl (70-99)
--- NOTE | 2024-06-12 21:00 | PTCARENOTE ---
Pt rec'd at approx 1930 from [facility] s/p perc. choli tube in RUQ. Drsg dry and intact. No c/o pain per daughter at bedside. vs charted.
Reached out to Dr Torres re' heparin gtt which was stopped pre procedure. Order obtained to restart at midnight at same rate.
[2024-06-12 22:14] LABS: Glucose - Point of Care 120 mg/dl (70-99)
[2024-06-13] MEDS: HEPARIN 25000 UNITS/250 ML IV ×3 (00:02→23:01)
[2024-06-13 03:42] VITALS: BP 124/69
[2024-06-13] MEDS: ZOSYN 50 IV ×4 (03:55→21:22)
[2024-06-13 05:41] LABS: Hematocrit 32.3 % (39.0-52.0); Hemoglobin 10.6 g/dL (13.0-18.0); Mean Corp Hgb Conc. 32.8 g/dL (33.0-37.0); Mean Corpuscular Volume 85.4 fL (80.0-94.0); Mean Platelet Volume 10.7 fL (7.4-10.4); Platelet Count 177 10^3/uL (130-400); Red Blood Cell Count 3.78 10^6/uL (4.70-6.10); White Blood Cell Count 9.1 10^3/uL (4.8-10.8)
[2024-06-13 06:02] LABS: Blood Urea Nitrogen 53 mg/dl (9-20); Calcium 8.6 mg/dl (8.4-10.2); Carbon Dioxide 22 mmol/L (22-30); Chloride 106 mmol/L (98-107); Estimated Creatinine Clearance 20 ml/min; Glucose 120 mg/dl (70-99); Potassium 4.6 mmol/L (3.5-5.1); Sodium 142 mmol/L (135-145); eGFR 26.98
[2024-06-13 07:20] VITALS: BP 123/85
[2024-06-13 08:32] LABS: Glucose - Point of Care 159 mg/dl (70-99)
[2024-06-13] MEDS: LOW STRENGTH ASPIRIN 81 MG PO (08:35)
--- NOTE | 2024-06-13 09:02 | W.PN.CARDCBS ---
Addendum entered and electronically signed by Reinaldo Chan DO 06/13/24 10:28:
I saw and examined the patient.
The Field Sales Trainer's note was reviewed and I agree with the note.
Comment:
Plan:
Cont franny tube management of cholecystitis as per surgery.
Cont abx
Trop peaked at 16 and EKG with anterolateral changes from prior. Echo stable. Concern for possible NSTEMI. Discussed with daughter at bedside and she wishes for nonaggressive care overall. May defer ischemic eval at present given family wishes which
are reasonable. With elevated cr, significant renal risk with consideration of invasive cardiac testing.
Monitor EKG
Gentle diuresis with pBNP elevated at 18,000. Monitor cr, if continues to rise consider nephro evaluation.
Continue ASA, IV heparin. Daughter is unsure that she would want to transition to oral anticoagulation for persistent Afib.
Add beta campos and consider addition of Plavix at d/c.
Original Note:
Today's Communication / Plan
-
continue asa, IV heparin
add toprol 25mg daily
repeat EKG
IV lasix 20mg BID
check LFTs, likely start statin
eventual consideration for ischemic evaluation although likely would need nephro to weigh in on ATN risk. Cr 2.3
eventual OAC
Impression / Plan
-
PCP: Manpreet Shaw
Laboratory Apparatus Glass Blower: none prior to admission, initial consult Dr. Gama Thomas
Impression:
Presented 06/11/2024 with right upper abdominal pain with vomiting, chest pain, shortness of breath
Acute cholecystitis
Acute hypoxic respiratory insufficiency
Bilateral pneumonia
Leukocytosis
Abnormal troponin, suspected NSTEMI
Acute heart failure with preserved ejection fraction proBNP 18,100
Hyperkalemia
RAFAL on CKD
Permanent atrial fibrillation
Cardiomyopathy, recovered
Mitral regurgitation
CKD stage 3b
htn
Alzheimer disease
dementia
Gout, diffuse
Chronic anemia
Prior bilateral strokes
Echo 06/12/2024: EF 55 to 60%, mild concentric LVH, mild MR, mild AI
Echo 06/20/2013: EF 35 to 40%, global hypokinesis, moderate MR
Plan:
Presented 06/11/2024 with right upper abdominal pain with vomiting, chest pain, shortness of breath
-CT abd with large gallstone in gallbladder neck s/p IR placement of franny tube 06/12. without pain overnight. continue abx
-CXR read [place] B/[place] [address]. will give trial of IV lasix 20mg BID as patient reports some SOB. Cr 2.3. consider nephro evaluation
-trop peaked at 16.4 and EKG from admission with anterolateral ST abnormality, concern for NSTEMI. echo with improved EF compared to prior from 06/12/24. for now plan for conservative mgmt as chest pain free and with RAFAL on CKD and acute
cholecystitis.
-repeat EKG today
-continue asa, IV heparin
-add toprol 25mg daily
-repeat LFTs - AST was elevated 06/12. start statin if LFTs ok
-consider addition of plavix prior to DC
-eventual consideration for ischemic evaluation although likely would need nephro to weigh in on ATN risk.
-in rate controlled afib. was not on OAC prior to admission however [id number] score of at least 6 for age, HTN, CHF, h/o CVA. will have CM look into cost of eliquis
-d/w patient's daughter at bedside
HPI 06/12/2024:
Patient is an 84-year-old male with past medical history significant for permanent atrial fibrillation, cardiomyopathy recovered, mitral regurgitation, CKD, hypertension, Alzheimer dementia, chronic anemia who presents to emergency department
06/11/2024 with complaints of right upper abdominal pain, nausea, shortness of breath and chest discomfort. Patient found to have leukocytosis of 26 and RAFAL on CKD. Chest x-ray concerning for bilateral pneumonia. CT of abdomen with gallstone in
neck of gallbladder with mildly distended gallbladder and pericholecystic fat stranding and edema concerning of acute cholecystitis. ProBNP elevated at 18,100. Elevated troponin 15.7 initially and slowly trending up. EKG shows atrial fibrillation
with reasonably controlled ventricular response and slightly worsening ST-T wave abnormality concerning for anterolateral ischemia. Patient received 1 dose of IV Lasix in emergency department and started on IV antibiotics. Patient currently n.p.o.
Patient's daughter at bedside. She helps to provide some history. Patient follows with Manpreet Shaw for primary care and does not have outside technical support agent. Primary care physician does [facility]. Daughter does not think he has had an
EKG recently. She was unaware that he had any cardiac conditions. She reports he has dementia and is rather nonambulatory. He is able to ambulate very short distances with assistance utilizing a walker.
Progress Note - Laboratory Apparatus Glass Blower
Subjective
Date of Service: June 13, 2024
patient reports some SOB. no CP
Objective
Labs:
06/13/24 05:18
06/13/24 05:18
Labs
Hgb 10.6 g/dL (13.0-18.0) L 06/13/24 05:18
Hct 32.3 % (39.0-52.0) L 06/13/24 05:18
Plt Count 177 10^3/uL (130-400) 06/13/24 05:18
PT 16.8 Sec (11.4-14.6) H 06/11/24 20:30
INR 1.34 06/11/24 20:30
APTT 38.0 Sec (23.4-35.0) H 06/13/24 05:18
Sodium 142 mmol/L (135-145) 06/13/24 05:18
Potassium 4.6 mmol/L (3.5-5.1) 06/13/24 05:18
BUN 53 mg/dl (9-20) H 06/13/24 05:18
Creatinine 2.3 mg/dL (0.7-1.3) H 06/13/24 05:18
Glucose 120 mg/dl (70-99) H 06/13/24 05:18
Troponins
06/11/24 06/11/24 06/12/24
19:51 22:45 02:13
Troponin I 15.700 H* 14.900 H* 16.200 H*
06/12/24 06/12/24 06/12/24
05:38 08:00 12:24
Troponin I 16.400 H* Cancelled 13.500 H*
Vital Signs and I&O:
Vital Signs
Temp Pulse Resp BP Pulse Ox
98.1 F 83 18 123/85 96
06/13/24 07:17 06/13/24 07:45 06/13/24 07:17 06/13/24 07:20 06/13/24 07:17
Vital Signs
Temp Pulse Resp BP Pulse Ox
98.1 F 83 18 123/85 96
06/13/24 07:17 06/13/24 07:45 06/13/24 07:17 06/13/24 07:20 06/13/24 07:17
Intake & Output
06/11/24 06/12/24 06/13/24 06/14/24
07:59 07:59 07:59 07:59
Intake Total 100 / 100 412 / 412
Output Total 75 / 75
Balance 100 / 100 337 / 337
Physical Exam
Physical Exam
GEN: No distress, awake, alert, oriented to self. language barrier
HEENT: supple, anicteric, mmm, eomi
LUNGS: Crackles B/L bases, no wheezes
CV: Irreg, S1/S2, 1/6 murmur
ABD: soft, BS+, NT/ND
EXT: No cyanosis, clubbing, edema
NEURO: Gross non-focal
SKIN: Warm, pink, dry. No rash. Franny tube in place
--- NOTE | 2024-06-13 09:13 | PTCARENOTE ---
Assumed care of pt from night RN. Pt received asleep, but wakens easily to verbal stimuli. Pt is Slovenian speaking, daughter in room able to translate. Percutaneous drg cath intact to RUQ, draining dark brown bile. Heparin drip running at 1400
units/hr through right wrist, next PTT due at 1245. Pt offers no c/o pain or discomfort.
[2024-06-13] MEDS: NOVOLOG FLEXPEN-LOW RESISTANCE 1 UNITS SC ×2 (09:34→16:54)
[2024-06-13] MEDS: LASIX 20 MG IV ×2 (09:35→16:02)
[2024-06-13] MEDS: TOPROL XL 25 MG PO (09:35)
--- NOTE | 2024-06-13 09:45 | PTOTSP ---
Speech Language Pathology
Pt seen for clinical bedside swallow evaluation. Daughter present and translated. She stated pt is on pureed solids given issues in esophagus, but he has not seen GI. She also denied any recent PNA or difficulty swallowing puree/thin liquids at
home. Seen with breakfast tray of puree/thin liquids. Adequate oral phase with limited trials provided. No overt signs of aspiration.
Recommend:
(1) Continue baseline diet of IDDSI Level 4 (Puree) and Thin Liquids
(2) Aspiration precautions: sit upright, slow rate
(3) Meds as tolerated
(4) LINTER SAW SHARPENER to sign off. Please reconsult as indicated
[2024-06-13 09:51] LABS: ALT (SGPT) 21 U/L (0-50); AST (SGOT) 89 U/L (17-59); Albumin 3.5 g/dl (3.5-5.0); Alkaline Phosphatase 66 U/L (38-126); Direct Bilirubin 0.5 mg/dl (0.0-0.4); Total Bilirubin 1.7 mg/dl (0.2-1.3); Total Protein 7.1 g/dl (6.3-8.2)
[2024-06-13 11:13] VITALS: BP 128/75
--- NOTE | 2024-06-13 11:15 | W.PN.HOSP.TC ---
Today's Communication/Plan
-
Continue gallbladder drain.
Continue antibiotics per
Gentle diuresis per
IV heparin
Physical therapy assessment
Plan of care discussed with cardiology and patient's daughter at the bedside
Assessment / Plan
Assessment / Plan
Impression:
Presentation with acute onset of nausea, vomiting and right upper quadrant pain.
Acute cholecystitis
Bilateral pneumonia possibly secondary due to aspiration acute versus chronic.
Non-STEMI in the settings of acute cholecystitis.
Acute CHF preserved EF.
RAFAL on CKD stage IIIb.
Hyperkalemia
Other conditions:
Permanent atrial fibrillation
Recovered likely ischemic cardiomyopathy.
Mitral regurgitation
CKD stage IIIb with baseline creatinine 1.5�1.8.
Essential hypertension.
Prior strokes
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
Chronic normocytic anemia.
Gout.
Plan:
Acute cholecystitis
Patient presented with acute onset of nausea vomiting and right upper quadrant pain
Elevated white count
Mildly abnormal LFTs with mixed picture of transaminitis and bilirubin elevation
CT scan of the abdomen pelvis findings consistent with stone in gallbladder neck
Not septic on presentation.
Exam relatively benign
In discussion with surgery and given patient's presentation with non-STEMI as well as other risk factors not limited to RAFAL and CKD, dementia, patient would be a poor candidate for surgical intervention.
Status post percutaneous cholecystostomy by interventional radiology on 06/12.
Continue Zosyn today. Plan is to narrow antibiotics to Unasyn on 06/14 with transition to Augmentin upon discharge.
Bilateral pneumonia.
Suspect acute on chronic aspiration less likely community-acquired pneumonia.
Empiric antibiotics single dose of ceftriaxone/Zithromax in ED. Transition to Zosyn to cover intra-abdominal pathogens with acute cholecystitis.
Speech and swallow evaluation.
Continue aspiration precautions
Monitor oxygen level
Acute non-STEMI likely in the settings of acute cholecystitis with possibly underlying CAD.
Echocardiogram with recovered EF with no regional wall motion abnormalities.
Troponin peaked at 16
Currently chest pain-free.
Initiated on IV heparin which will be interrupted for percutaneous cholecystostomy placement.
Monitor hemodynamics
Eventually GDMT including beta-blockers, aspirin, statin
Acute CHF preserved EF
Noted with elevated pro CHF BNP.
Stable respiratory status currently with no requirements for supplemental oxygen.
Chest x-ray with bibasilar infiltrate not consistent with pulmonary edema.
Status post single dose of Lasix provided in ED.
Continue gentle diuresis with Lasix 20 mg IV twice daily.
Monitor volume status closely
Permanent atrial fibrillation
Normal TSH
Rate controlled.
Not on antiarrhythmics oral rate control agents prior to admission
Not on anticoagulation.
CT scan with multiple old infarcts.
Monitor rate and rhythm with
Eventually discussion in regards to chronic anticoagulation.
RAFAL on CKD stage IIIb.
Follow creatinine
Bladder scan.
Avoid hypotension and nephrotoxic agents
Gout
On colchicine as needed COMMUNICATIONS PROFESSOR.
DVT prophylaxis/heparin
CODE STATUS DNR
Anticipated Discharge: 24 - 48 hours
Subjective/Interval History
-
Date of Service: June 13, 2024
Objective Data
-
Labs:
Laboratory Results
06/13/24 06/13/24
05:18 12:45
WBC 9.1
Hgb 10.6 L
Hct 32.3 L
Plt Count 177
APTT 38.0 H Pending
Sodium 142
Potassium 4.6
Chloride 106
Carbon Dioxide 22
BUN 53 H
Creatinine 2.3 H
Glucose 120 H
Calcium 8.6
Total Bilirubin 1.7 H
AST 89 H
ALT 21
Alkaline Phosphatase 66
Vital Signs:
Vital Signs
Temp Pulse Resp BP Pulse Ox
98.1 F 83 18 123/85 96
06/13/24 07:17 06/13/24 07:45 06/13/24 07:17 06/13/24 07:20 06/13/24 09:05
I&O
06/12/24 06/13/24 06/14/24
06:59 06:59 06:59
Intake Total 100 / 100 412 / 412
Output Total 75 / 75
Balance 100 / 100 337 / 337
Physical Exam
-
General: Well Developed and No Apparent Distress
HEENT: Normocephalic, Atraumatic and Moist Mucous Membranes
Respiratory: Clear to Auscultation
Cardiac: S1/S2 and Irregular Rhythm; Negative Murmur, Rub or Gallop
GI: Soft, Nontender, Nondistended and Normal Bowel Sounds; Negative Organomegaly
Rectal: Deferred by Provider
Musculoskeletal: No Clubbing, No Cyanosis and No Edema
Skin: Negative Rash
Neuro: Awake, Alert, Oriented (Name only) and Nonfocal/Grossly Intact
--- NOTE | 2024-06-13 11:23 | W.PN.GS2 ---
Today's Communication / Plan
-
Cont diet and IV abx
Pls call with ?s
Assessment / Plan
-
84M PPD1 s/p perc mariah tube for ACC in setting of possible recent NSTEMI
AFVSS, clinically improved
WBC normalized
Drain functioning
Plan:
Cont diet as jimmy
IV abx All other care as pewr primary team
He will ultimately f/u with [facility] as an outpt for drain mgmt
Subjective Data
-
Date of Service: June 13, 2024
AFVSS, feels 'normal,' denies pain, denies n/v
Objective Data
-
Intake and Output
06/12/24 06/13/24 06/14/24
06:59 06:59 06:59
Intake Total 100 / 100 412 / 412
Output Total 75 / 75
Balance 100 / 100 337 / 337
Intake:
Oral fluids 100 / 100 240 / 240
IV fluids (Total) 72 / 72
Heparin 72 / 72
IV piggybacks 100 / 100
Output:
Drain Output (Total) 75 / 75
Right Upper Abdomen Placed in 75 / 75
IR
Other:
How many times incontinent 1
MODERATE amount urine
How many times incontinent 2 1
SATURATED amount urine
Vital Signs
Temp Pulse Resp BP Pulse Ox
97.1 F 83 18 123/85 95
06/13/24 11:10 06/13/24 07:45 06/13/24 11:10 06/13/24 07:20 06/13/24 11:10
Lab Results
06/13/24 05:18
06/13/24 05:18
Calcium 8.6 mg/dl (8.4-10.2) 06/13/24 05:18
Total Bilirubin 1.7 mg/dl (0.2-1.3) H 06/13/24 05:18
Direct Bilirubin 0.5 mg/dl (0.0-0.4) H 06/13/24 05:18
AST 89 U/L (17-59) H 06/13/24 05:18
ALT 21 U/L (0-50) 06/13/24 05:18
Alkaline Phosphatase 66 U/L (38-126) 06/13/24 05:18
Total Protein 7.1 g/dl (6.3-8.2) 06/13/24 05:18
Albumin 3.5 g/dl (3.5-5.0) 06/13/24 05:18
Physical Exam
-
Gen: NAD
Abd: soft, nt, drain with dark bloody fluid
[2024-06-13 12:45] LABS: Glucose - Point of Care 206 mg/dl (70-99)
[2024-06-13] MEDS: NOVOLOG FLEXPEN-LOW RESISTANCE 2 UNITS SC (12:45)
--- NOTE | 2024-06-13 14:44 | CM ---
Reviewed chart. Met with Mr. Gallagher and his daughter to review discharge plans. We reviewed discharge planning options SNF/Rehab. At this time his daughter is declining SNF/Rehab. She is agreeable to [facility] with [facility].
Prior to admission he resides with his daughter in a one story home with two steps to enter. Prior to admission he ambulated with a rolling walker. He has rolling walker and wheelchair at home. He has a prescription plan and uses [facility].
Medical work-up in progress. The discharge plan is to return home with his daughter and [facility] when medically stable.
[2024-06-13 15:28] VITALS: BP 108/52
[2024-06-13 16:54] LABS: Glucose - Point of Care 178 mg/dl (70-99)
[2024-06-13 19:33] VITALS: BP 141/84
[2024-06-13 20:15] LABS: APTT 56.6 Sec (23.4-35.0)
[2024-06-13 21:59] LABS: Glucose - Point of Care 154 mg/dl (70-99)
[2024-06-13 23:19] VITALS: BP 145/67
[2024-06-14] VITALS (8 sets, daily range): BP systolic 103–152; BP diastolic 55–87; PULSE 82
[2024-06-14 03:43] LABS: Hematocrit 31.8 % (39.0-52.0); Hemoglobin 10.5 g/dL (13.0-18.0); Mean Corpuscular Hgb 27.4 pg (27.0-31.0); Mean Platelet Volume 11.2 fL (7.4-10.4); Platelet Count 178 10^3/uL (130-400); Red Blood Cell Count 3.83 10^6/uL (4.70-6.10); Red Cell Dist. Width 16.5 % (11.5-14.5); White Blood Cell Count 6.1 10^3/uL (4.8-10.8)
[2024-06-14 03:58] LABS: APTT 91.5 Sec (23.4-35.0)
[2024-06-14] MEDS: ZOSYN 50 IV (04:14)
[2024-06-14 04:51] LABS: Blood Urea Nitrogen 61 mg/dl (9-20); Calcium 8.4 mg/dl (8.4-10.2); Carbon Dioxide 22 mmol/L (22-30); Chloride 102 mmol/L (98-107); Estimated Creatinine Clearance 18 ml/min; Glucose 125 mg/dl (70-99); Potassium 4.1 mmol/L (3.5-5.1); Sodium 139 mmol/L (135-145); eGFR 23.29
--- NOTE | 2024-06-14 05:09 | PTCARENOTE ---
Pt OOB to the chair, and short distance walk with x 1 assist and the walker. AFib on monitor, denies pain or SOB. Bladder scan post void 295ml. Heparin gt per protocol
[2024-06-14 08:03] LABS: Glucose - Point of Care 109 mg/dl (70-99)
[2024-06-14] MEDS: NOVOLOG FLEXPEN-LOW RESISTANCE SC (09:07)
[2024-06-14] MEDS: LOW STRENGTH ASPIRIN 81 MG PO (09:36)
[2024-06-14] MEDS: TOPROL XL 25 MG PO (09:36)
[2024-06-14] MEDS: LASIX IV (09:36)
[2024-06-14] MEDS: ZOSYN IV (10:18)
--- NOTE | 2024-06-14 10:25 | PTCARENOTE ---
Rec'd pt this shift awake and alert. Pt AAO X 1, pts daughter at bedside. Pt on Heparin at 1800 units/hr. Pt with Rt upper drain in place. Pt denies pain, denies sob. PTT sent at 0930. Pt in and out of bed and on and off bedside commode. Pt
incontinent. See worklist for VS/I and O and assessments.
[2024-06-14] MEDS: AUGMENTIN 500 MG/125 MG 1 TABLET PO ×2 (10:53→19:53)
[2024-06-14] MEDS: ELIQUIS 2.5 MG PO ×2 (11:29→19:53)
--- NOTE | 2024-06-14 11:32 | PTCARENOTE ---
Heparin d/c'd. Eliquis given as ordered.
--- NOTE | 2024-06-14 11:38 | W.PN.CARDCBS ---
Addendum entered and electronically signed by Reinaldo Chan DO 06/14/24 12:46:
I saw and examined the patient.
The Apprenticeship Training Representative's note was reviewed and I agree with the note.
Comment:
Plan:
Transitioned to Eliquis as no plan for surgery
Lasix held with rising cr, 2.6. Consider nephrology input as volume status remains difficult to determine. He may still be holding onto some volume.
Monitor cr. If cr worsens with holding diuretics, may need to resume diuresis.
Cont ASA and Eliquis.
AST improved, add statin
Cont medical therapy of NSTEMI as per pt and family wishes and in light of renal failure.
Recheck pBNP
Disussed with daughter at bedside.
Original Note:
Today's Communication / Plan
-
transitioned IV heparin to eliquis
holding lasix. consider nephrology evaluation as suspect still in failure
managing suspected NSTEMI conservatively given RAFAL
CP free
add statin
Impression / Plan
-
PCP: Manpreet Shaw
Smoking Pipe Driller And Threader: none prior to admission, initial consult Dr. Gama Thomas
Impression:
Presented 06/11/2024 with right upper abdominal pain with vomiting, chest pain, shortness of breath
Acute cholecystitis
Acute hypoxic respiratory insufficiency
Bilateral pneumonia
Leukocytosis
Abnormal troponin, suspected NSTEMI
Acute heart failure with preserved ejection fraction proBNP 18,100
Hyperkalemia
RAFAL on CKD
Permanent atrial fibrillation
Cardiomyopathy, recovered
Mitral regurgitation
CKD stage 3b
htn
Alzheimer disease
dementia
Gout, diffuse
Chronic anemia
Prior bilateral strokes
Echo 06/12/2024: EF 55 to 60%, mild concentric LVH, mild MR, mild AI
Echo 06/20/2013: EF 35 to 40%, global hypokinesis, moderate MR
Plan:
-franny tube functioning appropriately as per surgery. output currently dark brown. will monitor closely. hgb stable overnight at 10.5
-remains in rate controlled afib on review of tele. transitioned from IV heparin to eliquis 2.5mg BID.
-proBNP 64149. holding additional lasix given Cr up to 2.6. patient/daughter report breathing is improved. would consider nephrology input
-managing suspected NSTEMI conservatively given RAFAL.
-he is pain free
-continue asa, OAC. not on plavix to avoid risk of bleeding on triple therapy.
-continue toprol
-AST downtrending. will add lipitor 40mg QPM and follow LFTs
-eventual consideration for ischemic evaluation although likely would need nephro to weigh in on ATN risk.
-d/w patient's daughter at bedside. d/w nursing
HPI 06/12/2024:
Patient is an 84-year-old male with past medical history significant for permanent atrial fibrillation, cardiomyopathy recovered, mitral regurgitation, CKD, hypertension, Alzheimer dementia, chronic anemia who presents to emergency department
06/11/2024 with complaints of right upper abdominal pain, nausea, shortness of breath and chest discomfort. Patient found to have leukocytosis of 26 and RAFAL on CKD. Chest x-ray concerning for bilateral pneumonia. CT of abdomen with gallstone in
neck of gallbladder with mildly distended gallbladder and pericholecystic fat stranding and edema concerning of acute cholecystitis. ProBNP elevated at 18,100. Elevated troponin 15.7 initially and slowly trending up. EKG shows atrial fibrillation
with reasonably controlled ventricular response and slightly worsening ST-T wave abnormality concerning for anterolateral ischemia. Patient received 1 dose of IV Lasix in emergency department and started on IV antibiotics. Patient currently n.p.o.
Patient's daughter at bedside. She helps to provide some history. Patient follows with Manpreet Shaw for primary care and does not have outside test analyst. Primary care physician does [facility]. Daughter does not think he has had an
EKG recently. She was unaware that he had any cardiac conditions. She reports he has dementia and is rather nonambulatory. He is able to ambulate very short distances with assistance utilizing a walker.
Progress Note - Smoking Pipe Driller And Threader
Subjective
Date of Service: June 14, 2024
no complaints overnight
Objective
Labs:
06/14/24 03:12
06/14/24 03:12
Labs
Hgb 10.5 g/dL (13.0-18.0) L 06/14/24 03:12
Hct 31.8 % (39.0-52.0) L 06/14/24 03:12
Plt Count 178 10^3/uL (130-400) 06/14/24 03:12
PT 16.8 Sec (11.4-14.6) H 06/11/24 20:30
INR 1.34 06/11/24 20:30
APTT 99.0 Sec (23.4-35.0) H 06/14/24 10:13
Sodium 139 mmol/L (135-145) 06/14/24 03:12
Potassium 4.1 mmol/L (3.5-5.1) 06/14/24 03:12
BUN 61 mg/dl (9-20) H 06/14/24 03:12
Creatinine 2.6 mg/dL (0.7-1.3) H 06/14/24 03:12
Glucose 125 mg/dl (70-99) H 06/14/24 03:12
Troponins
06/11/24 06/11/24 06/12/24
19:51 22:45 02:13
Troponin I 15.700 H* 14.900 H* 16.200 H*
06/12/24 06/12/24 06/12/24
05:38 08:00 12:24
Troponin I 16.400 H* Cancelled 13.500 H*
Vital Signs and I&O:
Vital Signs
Temp Pulse Resp BP Pulse Ox
97.8 F 75 20 105/70 93
06/14/24 07:58 06/14/24 11:22 06/14/24 07:58 06/14/24 11:22 06/14/24 07:58
Vital Signs
Temp Pulse Resp BP Pulse Ox
97.8 F 75 20 105/70 93
06/14/24 07:58 06/14/24 11:22 06/14/24 07:58 06/14/24 11:22 06/14/24 07:58
Intake & Output
06/12/24 06/13/24 06/14/24 06/15/24
07:59 07:59 07:59 07:59
Intake Total 100 / 100 412 / 412 380 / 380
Output Total 75 / 75 885 / 885
Balance 100 / 100 337 / 337 -505 / -505
Physical Exam
Physical Exam
GEN: No distress, awake, alert, oriented to self. language barrier/demented. sitting in chair
HEENT: supple, anicteric, mmm, eomi
LUNGS: Crackles B/L bases, no wheezes
CV: Irreg, S1/S2, 1/6 murmur
ABD: soft, BS+, NT/ND
EXT: No cyanosis, clubbing, edema
NEURO: Gross non-focal
SKIN: Warm, pink, dry. No rash. Franny tube in place with dark brown output
--- NOTE | 2024-06-14 11:46 | W.PN.HOSP.TC ---
Today's Communication/Plan
-
Cholecystectomy has been in place
Transition to oral antibiotics/Augmentin covering intra-abdominal and aspiration pathogens.
Transition off IV heparin to Eliquis.
Hold Lasix following creatinine.
Physical therapy evaluation
Assessment / Plan
Assessment / Plan
Impression:
Presentation with acute onset of nausea, vomiting and right upper quadrant pain.
Acute cholecystitis
Bilateral pneumonia possibly secondary due to aspiration acute versus chronic.
Non-STEMI in the settings of acute cholecystitis.
Acute CHF preserved EF.
RAFAL on CKD stage IIIb.
Hyperkalemia
Other conditions:
Permanent atrial fibrillation
Recovered likely ischemic cardiomyopathy.
Mitral regurgitation
CKD stage IIIb with baseline creatinine 1.5�1.8.
Essential hypertension.
Prior strokes
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
Chronic normocytic anemia.
Gout.
Plan:
Acute cholecystitis
Patient presented with acute onset of nausea vomiting and right upper quadrant pain
Elevated white count
Mildly abnormal LFTs with mixed picture of transaminitis and bilirubin elevation
CT scan of the abdomen pelvis findings consistent with stone in gallbladder neck
Not septic on presentation.
Exam relatively benign
In discussion with surgery and given patient's presentation with non-STEMI as well as other risk factors not limited to RAFAL and CKD, dementia, patient would be a poor candidate for surgical intervention.
Status post percutaneous cholecystostomy by interventional radiology on 06/12.
Transition from Zosyn to Augmentin
Bilateral pneumonia.
Suspect acute on chronic aspiration less likely community-acquired pneumonia.
Empiric antibiotics single dose of ceftriaxone/Zithromax in ED. Transition to Zosyn to cover intra-abdominal pathogens with acute cholecystitis.
Speech and swallow evaluation.
Continue aspiration precautions
Respiratory status remained stable
Acute non-STEMI likely in the settings of acute cholecystitis with possibly underlying CAD.
Echocardiogram with recovered EF with no regional wall motion abnormalities.
Troponin peaked at 16
Currently chest pain-free.
Initiated on IV heparin which will be interrupted for percutaneous cholecystostomy placement.
Monitor hemodynamics
Eventually GDMT including beta-blockers, aspirin, statin
Acute CHF preserved EF
Noted with elevated pro CHF BNP.
Stable respiratory status currently with no requirements for supplemental oxygen.
Chest x-ray with bibasilar infiltrate not consistent with pulmonary edema.
IV Lasix held due to creatinine bump. Respiratory status remained stable
Permanent atrial fibrillation
Normal TSH
Rate controlled.
Not on antiarrhythmics oral rate control agents prior to admission
Not on anticoagulation.
CT scan with multiple old infarcts.
Monitor rate and rhythm with
Eventually discussion in regards to chronic anticoagulation.
RAFAL on CKD stage IIIb.
Follow creatinine
Bladder scan.
Avoid hypotension and nephrotoxic agents
Gout
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
DVT prophylaxis/heparin
CODE STATUS DNR
Anticipated Discharge: 24 - 48 hours
Subjective/Interval History
-
Date of Service: June 14, 2024
Objective Data
-
Labs:
Laboratory Results
06/14/24 06/14/24
03:12 10:13
WBC 6.1
Hgb 10.5 L
Hct 31.8 L
Plt Count 178
APTT 91.5 H 99.0 H
Sodium 139
Potassium 4.1
Chloride 102
Carbon Dioxide 22
BUN 61 H
Creatinine 2.6 H
Glucose 125 H
Calcium 8.4
Vital Signs:
Vital Signs
Temp Pulse Resp BP Pulse Ox
97.8 F 75 20 105/70 93
06/14/24 07:58 06/14/24 11:22 06/14/24 07:58 06/14/24 11:22 06/14/24 07:58
I&O
1106/14/24 06/15/24
06:59 06:59 06:59
Intake Total 412 / 412 380 / 380
Output Total 75 / 75 885 / 885
Balance 337 / 337 -505 / -505
Physical Exam
-
General: Well Developed and No Apparent Distress
HEENT: Normocephalic, Atraumatic and Moist Mucous Membranes
Respiratory: Clear to Auscultation
Cardiac: S1/S2 and Irregular Rhythm; Negative Murmur, Rub or Gallop
GI: Soft, Nontender, Nondistended and Normal Bowel Sounds; Negative Organomegaly
Rectal: Deferred by Provider
Musculoskeletal: No Clubbing, No Cyanosis and No Edema
Skin: Negative Rash
Neuro: Awake, Alert, Oriented (Name only) and Nonfocal/Grossly Intact
[2024-06-14 12:59] LABS: Glucose - Point of Care 160 mg/dl (70-99)
[2024-06-14] MEDS: NOVOLOG FLEXPEN-LOW RESISTANCE 1 UNITS SC ×2 (13:22→17:12)
--- NOTE | 2024-06-14 13:39 | CM ---
Addendum entered by Denice Bear 06/14/24 14:24:
Telephone call to [facility] to check on co-pay for Eliquis 2.5 mg po bid. His prescription coverage is with his Medicare Part B. Telephone call to [facility], ([phone]) to check on his co-pay. His co-pay wouild be zero. Placed the
one month free coupon in his red discharge folder.
Original Note:
Reviewed chart. Met with Mr. Gallagher and his daughter to review discharge plans. She states he is lloking better today. He ambulated 50 feet with rollling walker and min. assistance. His daughter states she is with him he he ambulates at home. We
reviewed [facility] Services with [facility]. She is agreeable to [facility]. Prior to admission he resdies with his daughter in a one stroy home with two steps to enter. Prior to admission he ambulated with a rolling walker. He has a
prescription plan and uses [facility]. Medical work-up in progress. The discharge plan is to return home with his daughter and [facility] when medically stable.
[2024-06-14 16:43] LABS: Glucose - Point of Care 156 mg/dl (70-99)
[2024-06-14] MEDS: LIPITOR 40 MG PO (17:08)
[2024-06-14 22:03] LABS: Glucose - Point of Care 163 mg/dl (70-99)
[2024-06-15 04:04] VITALS: BP 150/95
[2024-06-15 04:29] LABS: Hematocrit 32.3 % (39.0-52.0); Hemoglobin 10.4 g/dL (13.0-18.0); Mean Corp Hgb Conc. 32.2 g/dL (33.0-37.0); Mean Corpuscular Hgb 27.2 pg (27.0-31.0); Mean Corpuscular Volume 84.6 fL (80.0-94.0); Mean Platelet Volume 10.5 fL (7.4-10.4); Platelet Count 191 10^3/uL (130-400); Red Blood Cell Count 3.82 10^6/uL (4.70-6.10); Red Cell Dist. Width 16.5 % (11.5-14.5); White Blood Cell Count 5.1 10^3/uL (4.8-10.8)
[2024-06-15 05:14] LABS: ALT (SGPT) 24 U/L (0-50); AST (SGOT) 50 U/L (17-59); Albumin 3.4 g/dl (3.5-5.0); Alkaline Phosphatase 60 U/L (38-126); Blood Urea Nitrogen 52 mg/dl (9-20); Calcium 8.3 mg/dl (8.4-10.2); Carbon Dioxide 24 mmol/L (22-30); Chloride 104 mmol/L (98-107); Estimated Creatinine Clearance 22 ml/min; Glucose 111 mg/dl (70-99); Potassium 4.1 mmol/L (3.5-5.1); Sodium 141 mmol/L (135-145); Total Bilirubin 1.1 mg/dl (0.2-1.3); Total Protein 7.1 g/dl (6.3-8.2); eGFR 30.09
[2024-06-15 06:20] VITALS: BMI 28.5
--- NOTE | 2024-06-15 06:25 | PTCARENOTE ---
Pt AFib on monitor. VSS. Denies pain or SOB. Resting comfortable in the bed this shift. Safety measures in place
[2024-06-15 07:57] LABS: Glucose - Point of Care 114 mg/dl (70-99)
[2024-06-15 07:59] VITALS: BP 145/91
[2024-06-15] MEDS: NOVOLOG FLEXPEN-LOW RESISTANCE SC (08:07)
[2024-06-15] MEDS: LOW STRENGTH ASPIRIN 81 MG PO (08:07)
[2024-06-15] MEDS: TOPROL XL 25 MG PO (08:07)
[2024-06-15] MEDS: AUGMENTIN 500 MG/125 MG 1 TABLET PO (08:08)
[2024-06-15] MEDS: ELIQUIS 2.5 MG PO (08:08)
--- NOTE | 2024-06-15 09:16 | PTCARENOTE ---
Pt OOB walking hallways w/ assist x1 and RW. Tele- afib. HR 60-80s. Pt has no c/o pain/discomfort at this time. Pt incontinent. Pt with Rt upper drain in place. See worklist for VS/I and O and assessments.
--- NOTE | 2024-06-15 09:51 | W.PN.CARDCBS ---
Addendum entered and electronically signed by Madhu Licea MD 06/15/24 10:01:
I saw and examined the patient.
The Campaign Assistant's note was reviewed and I agree with the note.
Comment:
GEN: No distress, awake, Ox3
HEENT: supple, anicteric, mmm
LUNGS: CTA, no wheezes/rales
CV: irreg, S1/S2, 1/6 syst LSB, no gallop
ABD: soft, BS+, NT/ND, + tube
EXT: No edema
NEURO: Gross non-focal
SKIN: No rash
Plan:
Continue conservative therapy for non-STEMI. Continue aspirin and Eliquis.
Continue Toprol, and atorvastatin.
With recent non-STEMI and markedly elevated proBNP would use Lasix 20 mg p.o. daily with close following of basic metabolic panel.
Repeat labs on Tuesday.
Will arrange outpatient cardiology follow-up. Stable for discharge from cardiology standpoint.
Original Note:
Today's Communication / Plan
-
asa, eliquis 2.5mg BID
toprol 25 mg daily
lipitor 40mg QPM
lasix 20mg daily
ProBNP/BMP Monday 06/18
OP cardiac follow up to be arranged
Impression / Plan
-
PCP: Manpreet Shaw
Architectural Job Captain: none prior to admission, initial consult Dr. Gama Thomas
Impression:
Presented 06/11/2024 with right upper abdominal pain with vomiting, chest pain, shortness of breath
Acute cholecystitis
Acute hypoxic respiratory insufficiency
Bilateral pneumonia
Leukocytosis
Abnormal troponin, suspected NSTEMI
Acute heart failure with preserved ejection fraction proBNP 18,100
Hyperkalemia
RAFAL on CKD
Permanent atrial fibrillation
Cardiomyopathy, recovered
Mitral regurgitation
CKD stage 3b
htn
Alzheimer disease
dementia
Gout, diffuse
Chronic anemia
Prior bilateral strokes
Echo 06/12/2024: EF 55 to 60%, mild concentric LVH, mild MR, mild AI
Echo 06/20/2013: EF 35 to 40%, global hypokinesis, moderate MR
Plan:
-proBNP on admission 18,200. Has been intermittently diuresed this admission given RAFAL on CKD. Creatinine improved from 2.6-2.1 today. Will plan to discharge on p.o. Lasix 20 mg daily. Was not on Lasix prior to admission.
-Check proBNP and BMP on 06/18/2024
-Discussed with daughter would have him follow-up with nephrology as an outpatient and will provide their office information.
-Troponin peaked at 16.4. Managing conservatively in the setting of RAFAL on CKD as well as other comorbidities including dementia. No chest pain overnight. Continue aspirin, Toprol, statin. not on Plavix to reduce risk of bleeding
-In rate controlled A-fib on review of telemetry. Continue Eliquis 2.5mg BID
-not cardiac rehab candidate given dementia
-Okay for discharge to home today from cardiac standpoint
-Will arrange outpatient cardiac follow-up
-d/w patient's daughter at bedside. d/w nursing
HPI 06/12/2024:
Patient is an 84-year-old male with past medical history significant for permanent atrial fibrillation, cardiomyopathy recovered, mitral regurgitation, CKD, hypertension, Alzheimer dementia, chronic anemia who presents to emergency department
06/11/2024 with complaints of right upper abdominal pain, nausea, shortness of breath and chest discomfort. Patient found to have leukocytosis of 26 and RAFAL on CKD. Chest x-ray concerning for bilateral pneumonia. CT of abdomen with gallstone in
neck of gallbladder with mildly distended gallbladder and pericholecystic fat stranding and edema concerning of acute cholecystitis. ProBNP elevated at 18,100. Elevated troponin 15.7 initially and slowly trending up. EKG shows atrial fibrillation
with reasonably controlled ventricular response and slightly worsening ST-T wave abnormality concerning for anterolateral ischemia. Patient received 1 dose of IV Lasix in emergency department and started on IV antibiotics. Patient currently n.p.o.
Patient's daughter at bedside. She helps to provide some history. Patient follows with Manpreet Shaw for primary care and does not have outside production control scheduler. Primary care physician does housecalls. Daughter does not think he has had an
EKG recently. She was unaware that he had any cardiac conditions. She reports he has dementia and is rather nonambulatory. He is able to ambulate very short distances with assistance utilizing a walker.
Progress Note - Architectural Job Captain
Subjective
Date of Service: June 15, 2024
No chest pain, shortness of breath reported by patient. Daughter reports some diarrhea
Objective
Labs:
06/15/24 04:13
06/15/24 04:13
Labs
Hgb 10.4 g/dL (13.0-18.0) L 06/15/24 04:13
Hct 32.3 % (39.0-52.0) L 06/15/24 04:13
Plt Count 191 10^3/uL (130-400) 06/15/24 04:13
PT 16.8 Sec (11.4-14.6) H 06/11/24 20:30
INR 1.34 06/11/24 20:30
APTT 99.0 Sec (23.4-35.0) H 06/14/24 10:13
Sodium 141 mmol/L (135-145) 06/15/24 04:13
Potassium 4.1 mmol/L (3.5-5.1) 06/15/24 04:13
BUN 52 mg/dl (9-20) H 06/15/24 04:13
Creatinine 2.1 mg/dL (0.7-1.3) H 06/15/24 04:13
Glucose 111 mg/dl (70-99) H 06/15/24 04:13
Troponins
06/12/24 06/12/24
08:00 12:24
Troponin I Cancelled 13.500 H*
Vital Signs and I&O:
Vital Signs
Temp Pulse Resp BP Pulse Ox
97.3 F 74 16 145/91 94
06/15/24 07:58 06/15/24 08:07 06/15/24 07:58 06/15/24 08:07 06/15/24 08:45
Vital Signs
Temp Pulse Resp BP Pulse Ox
97.3 F 74 16 145/91 94
06/15/24 07:58 06/15/24 08:07 06/15/24 07:58 06/15/24 08:07 06/15/24 08:45
Intake & Output
06/13/24 06/14/24 06/15/24 06/16/24
07:59 07:59 07:59 07:59
Intake Total 412 / 412 380 / 380 650 / 650 400 / 400
Output Total 75 / 75 885 / 885 32 / 32
Balance 337 / 337 -505 / -505 618 / 618 400 / 400
Physical Exam
Physical Exam
GEN: No distress, awake, alert, oriented to self. language barrier/demented.
HEENT: supple, anicteric, mmm, eomi
LUNGS: Few crackles B/L bases, no wheezes
CV: Irreg, S1/S2, 1/6 murmur
ABD: soft, BS+, NT/ND
EXT: No cyanosis, clubbing, edema
NEURO: Gross non-focal
SKIN: Warm, pink, dry. No rash.
--- NOTE | 2024-06-15 11:04 | W.DS.TRANS ---
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
-
Discharge Instructions:
Discharge Diagnosis/Procedures Impression:
Presentation with acute onset of nausea,
vomiting and right upper quadrant pain.
Acute cholecystitis
Bilateral pneumonia possibly secondary due to
aspiration acute versus chronic.
Non-STEMI in the settings of acute cholecystitis
.
Acute CHF preserved EF.
RAFAL on CKD stage IIIb.
Hyperkalemia
Other conditions:
Permanent atrial fibrillation
Recovered likely ischemic cardiomyopathy.
Mitral regurgitation
CKD stage IIIb with baseline creatinine 1.5�1.8.
Essential hypertension.
Prior strokes
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
Chronic normocytic anemia.
Gout.
Diet 2 Gram Sodium,Restrict fluids to 48 oz
Activity As tolerated
Driving Restrictions No driving
Bathing Restrictions None
Blood Work proBNP/BMP on Tuesday06/18/24
Other Services VN
Specialty Instructions Weigh Daily
Instructions: *DCA Heart Failure Instructions
Stand-Alone Forms:
Changes to Home Medications: Yes
Discharge Medications:
DC Medications w/original date entered in [employer]
colchicine 0.6 mg tablet 0.6 mg PO BIDPRN PRN gout 10/19/22
amoxicillin 500 mg-potassium clavulanate 125 mg tablet 1 tab PO Q12 #14 tabs 06/15/24
apixaban 2.5 mg tablet (Eliquis) 2.5 mg PO BID #60 tabs 06/15/24
aspirin 81 mg chewable tablet 81 mg PO DAILY #30 tabs 06/15/24
atorvastatin 40 mg tablet 40 mg PO QPM #30 tabs 06/15/24
furosemide 20 mg tablet 20 mg PO DAILY #30 tabs 06/15/24
metoprolol succinate 25 mg tablet,extended release 24 hr 25 mg PO DAILY #30 tabs 06/15/24
pantoprazole 20 mg tablet,delayed release (Protonix) 20 mg PO DAILY #30 tabs 06/15/24
Home Medication Changes
All of above
Pending Results: No
[2024-06-15 11:09] VITALS: BP 142/70
[2024-06-15] MEDS: LASIX 20 MG PO (11:09)
--- NOTE | 2024-06-15 11:12 | CM ---
Reviewed chart. Spoke with attending physician and Mr. Gallagher is ready for discharge home today. Met with and Elliott to review discharge plans. Spoke with daughter to make her aware of blood work needs to be done at outside lab.
[facility] can not do the blood draw. Mr. Gallagher ambulated in the hallway with a rolling walker and his daughter. [facility] aware of [facility] date. Prior to admission he resides with his
daughter in a one story home with two steps to enter.Prior to admission he ambulates with a rolling walker and his daughter. He has a rolling walker at home. Daughter assisted with ADL's. He has a prescription plan and uses [facility].
Medical work-up in progress. The discharge plan is to return home with his daughter and [facility] when medically stable.
--- NOTE | 2024-06-15 11:21 | PTCARENOTE ---
IV and tele removed. Discharge instructions reviewed w/ daughter/caregiver. Verbalizes understanding. Escorted w/ staff assist via wheelchair. Discharged to home w/ daughter.
== END 2024-06-15 11:31 | disposition home health service (06) | DRG 280 ==
LOC: IVU 22:40
PROVIDERS: Clinical Nurse Specialist Family Health; Radiology Vascular & Interventional Radiology; Registered Nurse; ADMITTING PHYSICIAN Hospitalist; ATTENDING PHYSICIAN Internal Medicine; CONSULT PHYSICIAN Internal Medicine Cardiovascular Disease; CONSULT PHYSICIAN Surgery; EMERGENCY PHYSICIAN Emergency Medicine; FAMILY PHYSICIAN Family Medicine
PROC: 0F9430Z Drainage of Gallbladder with Drainage Device, Percutaneous Approach (ICD-10-PCS; 2024-06-12)
DX: I21.4 Non-ST elevation (NSTEMI) myocardial infarction (principal); I50.31 Acute diastolic (congestive) heart failure; J18.9 Pneumonia, unspecified organism; K80.00 Calculus of gallbladder with acute cholecystitis without obstruction; I48.21 Permanent atrial fibrillation; F02.84 Dementia in other diseases classified elsewhere, unspecified severity, with anxiety; F02.83 Dementia in other diseases classified elsewhere, unspecified severity, with mood disturbance; I13.0 Hypertensive heart and chronic kidney disease with heart failure and stage 1 through stage 4 chronic kidney disease, or unspecified chronic kidney disease; N17.9 Acute kidney failure, unspecified; K21.9 Gastro-esophageal reflux disease without esophagitis; R47.81 Slurred speech; R51.9 Headache, unspecified; R06.89 Other abnormalities of breathing; R09.02 Hypoxemia; M10.9 Gout, unspecified; F32.A Depression, unspecified; G30.9 Alzheimer's disease, unspecified; N18.32 Chronic kidney disease, stage 3b; D63.1 Anemia in chronic kidney disease; R73.9 Hyperglycemia, unspecified; I25.10 Atherosclerotic heart disease of native coronary artery without angina pectoris; I34.0 Nonrheumatic mitral (valve) insufficiency; I25.5 Ischemic cardiomyopathy; E87.5 Hyperkalemia; Z66 Do not resuscitate; Z60.3 Acculturation difficulty; Z87.891 Personal history of nicotine dependence; Z86.73 Personal history of transient ischemic attack (TIA), and cerebral infarction without residual deficits; Z11.52 Encounter for screening for COVID-19
CPT/HCPCS: 47490; 70450; 71046; 74150; 80048; 80053; 80061; 81003; 82248; 82962; 83036; 83605; 83880; 84132; 84443; 84484; 85025; 85027; 85610; 85730; 87015; 87040; 87070; 87205; 87449; 87811; 92610; 93005; 93306; 96365; 96375; 97116; 97163; 99152; 99285; C1729; C1769

== ENCOUNTER 2024-06-18 16:41 | Emergency (ER) | payer OTHER, SELFPAY ==
[2024-06-18 16:50] VITALS: BP 139/58
[2024-06-18 17:00] VITALS: BMI 28.1
[2024-06-18 17:29] LABS: PT 16.5 Sec (11.4-14.6)
[2024-06-18 17:30] LABS: APTT 30.3 Sec (23.4-35.0)
[2024-06-18 17:33] LABS: ALT (SGPT) 27 U/L (0-50); AST (SGOT) 42 U/L (17-59); Albumin 4.2 g/dl (3.5-5.0); Alkaline Phosphatase 65 U/L (38-126); Blood Urea Nitrogen 51 mg/dl (9-20); Carbon Dioxide 21 mmol/L (22-30); Chloride 104 mmol/L (98-107); Estimated Creatinine Clearance 22 ml/min; Glucose 118 mg/dl (70-99); Sodium 141 mmol/L (135-145); Total Bilirubin 1.5 mg/dl (0.2-1.3); Total Protein 8.3 g/dl (6.3-8.2); eGFR 28.46
[2024-06-18 17:34] LABS: Hematocrit 37.6 % (39.0-52.0); Mean Corp Hgb Conc. 31.9 g/dL (33.0-37.0); Mean Corpuscular Hgb 26.5 pg (27.0-31.0); Mean Corpuscular Volume 83.2 fL (80.0-94.0); Mean Platelet Volume 10.2 fL (7.4-10.4); Platelet Count 255 10^3/uL (130-400); Red Blood Cell Count 4.52 10^6/uL (4.70-6.10); White Blood Cell Count 8.7 10^3/uL (4.8-10.8)
[2024-06-18 17:41] LABS: NT-proBNP 1950 pg/ml
[2024-06-18 18:02] LABS: Absolute Neutrophils -Man Diff 4.8 10^3/uL (1.4-6.5); Band Neutrophils 0 % (0-3); Lymphocytes 21 % (20-51); Monocytes 21 % (2-9); Segmented Neutrophils 56 % (42-75)
[2024-06-18 18:03] LABS: Atypical Lymphocytes 1 %; Eosinophils 1 % (0-6); Normal RBC Morphology Yes; Platelets Checked Yes; Total Cells Counted 100
[2024-06-18] MEDS: OMNIPAQUE 50 ML PO (18:18)
[2024-06-18 18:22] VITALS: BP 158/68
[2024-06-18 18:58] VITALS: BP 155/101
--- NOTE | 2024-06-18 19:22 | ED.GENMED ---
History of Present Illness
General
Chief Complaint: Abdominal Symptoms
Source: records and family
Time Seen by Provider: 06/18/24 17:52
History of Present Illness
History of Present Illness:
84-year-old male with past medical history of Alzheimer's dementia, chronic atrial fibrillation, CHF, hypertension, recent NSTEMI, recent percutaneous cholecystostomy tube secondary to acute cholecystitis presenting back to the emergency department
at recommendation of visiting nurse who was concerned with amount of bleeding in patient's cholecystostomy bag. Daughter who is patient's primary engineering professionals states that the bleeding got worse over the last 24 hours. She notes that patient has been
having diarrhea since discharge which she is attributing to the antibiotics. Patient has not had any fevers but daughter still notes that he is coughing still (patient was also diagnosed with bilateral pneumonia during his admission). Patient is
on Eliquis due to his chronic atrial fibrillation and is compliant with a 2-1/2 mg dose. History unable to be provided by patient secondary to his dementia diagnosis.
Past History
Past History
ED Past Medical History: Arrthythmia (Atrial fib), CHF, GERD, HTN, [place], Valvular disease, Psychiatric (Anxiety, depression) and Other (Dementia Tuberculosis)
ED Past Surgical History: None
Social History
Tobacco: Former smoker
Alcohol: None
Drug: None
Personal:
Living: with family
Review of Systems
Review of Systems
All Other Systems: ROS reviewed and negative except as documented in HPI and ROS
Phy Exam
Physical Exam
Physical Exam:
GENERAL: Alert , in no apparent distress
EYE: clear conjunctiva b/l
HEAD: NCAT
ENT: o/p clr, mmm.
CARDIAC: Regular rate and rhythm .
LUNGS: Clear breath sounds bilaterally, no acute respiratory distress, no wheezes/rales/rhonchi
ABDOMEN: Soft, without focal tenderness, no r/g, no cvat, percutaneous nephrostomy in place without any surrounding erythema. There is darker bloodied drainage within the cholecystostomy bag
NEUROLOGICAL: Alert but unable to assess orientation
SKIN: Warm and dry, skin intact.
MUSCULOSKELETAL: No edema, well perfused.
PSYCH: Normal and appropriate interaction.
Scores
Heart Failure Risk
Heart Failure Risk Score: Not Applicable
Heart Score for Chest Pain Patients
STEMI patient?: Not applicable
Withdrawal Assessment of Alcohol
Withdrawal Assessment Completed?: Not applicable
Course
Orders/Labs/Results
Orders:
Orders
06/18/24 17:11
CMP [Comprehensive Metabolic Panel] Urgent
Complete Blood Count/With Diff Urgent
INR [Prothrombin Time] Urgent
Manual Differential Urgent
NT-proBNP Urgent
PTT Urgent
06/18/24 18:07
Iohexol [Omnipaque] See Protocol PO NOW STA
06/18/24 18:08
CT Abd/pel (oral only)-DH Only Urgent
Comment:
Reason For Exam: perc cholecystostomy tube, increased bleeding
Abnormal Lab Results
06/18/24
17:11
RBC 4.52 L 10^6/uL
(4.70-6.10)
Hgb 12.0 L g/dL
(13.0-18.0)
Hct 37.6 L %
(39.0-52.0)
MCH 26.5 L pg
(27.0-31.0)
MCHC 31.9 L g/dL
(33.0-37.0)
RDW 17.0 H %
(11.5-14.5)
Monocytes (Manual) 21 H %
(2-9)
PT 16.5 H Sec
(11.4-14.6)
Carbon Dioxide 21 L mmol/L
(22-30)
BUN 51 H mg/dl
(9-20)
Creatinine 2.2 H mg/dL
(0.7-1.3)
Glucose 118 H mg/dl
(70-99)
Total Bilirubin 1.5 H mg/dl
(0.2-1.3)
Total Protein 8.3 H g/dl
(6.3-8.2)
06/18/24 17:11
06/18/24 17:11
Vital Signs
Initial and Last Documented VS:
Initial Vital Signs
Temp Pulse Resp BP Pulse Ox
98.8 F 56 18 139/58 95
06/18/24 16:50 06/18/24 16:50 06/18/24 16:50 06/18/24 16:50 06/18/24 16:50
Last Documented Vital Signs
Temp Pulse Resp BP Pulse Ox
98.8 F 76 18 124/60 99
06/18/24 16:50 06/18/24 20:30 06/18/24 20:30 06/18/24 20:30 06/18/24 20:30
MDM/Problems Addressed
Differential Diagnosis Includes:
Anemia, with postoperative complication, antibiotic associated colitis, C. difficile colitis, pneumonia, abscess
MDM/Problems Addressed:
84-year-old male presenting emergency department at request of visiting nurse for evaluation of bloodied drainage within the cholecystostomy bag. Patient is maintained on Eliquis due to his chronic atrial fibrillation at 2 and half milligrams twice
daily which she is still taking and compliant with. Patient's recent discharge summary noted for acute cholecystitis requiring the percutaneous cholecystostomy. He also had bilateral pneumonia, NSTEMI and acute on chronic kidney disease. Patient
was transition from heparin back onto his Eliquis dosing. Will check labs and reassess following. Given his RAFAL will consult with radiology about best imaging study to evaluate for any bleeding complications
Chronic conditions affecting care: Arrhythmia
Acute Exacerbation and/or Progression of Chronic Illness: Arrhythmia
*Radiology
Radiology exam reviewed: radiology read reviewed
*Pulse Oximetry
Patient hypoxic: no
*Critical Care Note
Total Time (30-74mins, 75-104mins- exclusive of procedures): Not Applicable
Data Reviewed
Review of Other/Old Records Reveals: Labs, Records and Discharge Summary
Patient Management
Discussion with other providers: Radiologist
Escalation/DeEscalation of care consider admission/obs:
Per radiology they would prefer CT be done with oral contrast for further evaluation. Disposition pending.
While drinking oral contrast patient started to have coughing spasm. No vomiting but I do question possible aspiration. Patient and daughter were advised to have patient stop drinking the oral contrast and radiology was updated.
CT scan without any acute findings. Surgical site stable. Port remains in place. I notified general surgeon on-call, Dr. Kiran, who would like patient to hold Eliquis tonight and tomorrow morning. Tach to the surgical office tomorrow morning
for further instructions. Patient's daughter feels comfortable with this plan. Patient stable for discharge home.
ED Attending Note
-
Portions of this chart may have been created with voice recognition software.� Occasional wrong word or��sound alike� substitutions may have occurred due to the inherent limitations of voice recognition software.
Discharge Plan
Departure
Patient Disposition: Home (Routine Discharge)
Date of Disposition: 06/18/24
Time of Disposition: 20:10
Patient with high blood pressure during this ER visit?: No
Discharge Problem:
Post-op bleeding
Prescriptions:
No Action
colchicine 0.6 mg tablet
0.6 mg PO BIDPRN PRN (Reason: gout)
amoxicillin-pot clavulanate 500-125 mg Tablet
1 tab PO Q12 Qty: 14 0RF
Eliquis 2.5 mg Tablet
2.5 mg PO BID Qty: 60 1RF
atorvastatin 40 mg Tablet
40 mg PO QPM Qty: 30 0RF
aspirin 81 mg Tablet,Chewable
81 mg PO DAILY Qty: 30 0RF
furosemide 20 mg Tablet
20 mg PO DAILY Qty: 30 0RF
metoprolol succinate 25 mg Tablet Extended Release 24 Hr
25 mg PO DAILY Qty: 30 0RF
pantoprazole [Protonix] 20 mg tablet,delayed release (DR/EC)
20 mg PO DAILY Qty: 30 1RF
Referrals:
Fei Kiran MD [Active] - (Please call office in the morning)
Manpreet Shaw DO [Family Provider] -
Activity Restrictions/Additional Instructions:
Hold Eliquis dosing for tonight and tomorrow morning. Please contact the surgical tomorrow morning for further instruction.
Interventions
Interventions:
*Risk Screen - Suicide Last Done: 06/18/24 17:00
*General Assessment Last Done: 06/18/24 17:00
*Neglect/Abuse Screening Last Done: 06/18/24 17:00
*ED COVID-19 Vaccine History Last Done: 06/18/24 17:00
*Nursing Disposition Last Done: 06/18/24 20:33
AX-Anctna-Fzrwmuysxy Assessment Last Done: 06/18/24 17:00
Discharge Date and Time
Discharge Date/Time: 06/18/24 20:35
Print Language: PARAGUAYAN
[2024-06-18 19:46] VITALS: BP 130/59
[2024-06-18 20:30] VITALS: BP 124/60
== END 2024-06-18 20:35 | disposition home or self-care (01) ==
LOC: EMR 16:41
PROVIDERS: EMERGENCY PHYSICIAN Emergency Medicine; FAMILY PHYSICIAN Family Medicine
DX: K91.840 Postprocedural hemorrhage of a digestive system organ or structure following a digestive system procedure (principal); Y83.8 Other surgical procedures as the cause of abnormal reaction of the patient, or of later complication, without mention of misadventure at the time of the procedure; F02.80 Dementia in other diseases classified elsewhere, unspecified severity, without behavioral disturbance, psychotic disturbance, mood disturbance, and anxiety; G30.9 Alzheimer's disease, unspecified; I13.0 Hypertensive heart and chronic kidney disease with heart failure and stage 1 through stage 4 chronic kidney disease, or unspecified chronic kidney disease; I50.9 Heart failure, unspecified; N18.9 Chronic kidney disease, unspecified; I48.20 Chronic atrial fibrillation, unspecified; Z79.01 Long term (current) use of anticoagulants; I25.2 Old myocardial infarction; Z87.891 Personal history of nicotine dependence; Z90.49 Acquired absence of other specified parts of digestive tract
CPT/HCPCS: 99284; 74176; 80053; 83880; 85025; 85610; 85730

== ENCOUNTER 2024-07-11 00:19 | Inpatient (IN) | payer OTHER, SELFPAY ==
[2024-07-10 18:49] VITALS: BP 148/83
[2024-07-10 18:50] VITALS: BP 148/83
[2024-07-10 19:00] VITALS: BP 121/60
[2024-07-10 19:05] LABS: Hematocrit 33.9 % (39.0-52.0); Hemoglobin 10.7 g/dL (13.0-18.0); Mean Corp Hgb Conc. 31.6 g/dL (33.0-37.0); Mean Corpuscular Hgb 25.2 pg (27.0-31.0); Mean Corpuscular Volume 79.8 fL (80.0-94.0); Mean Platelet Volume 10.2 fL (7.4-10.4); Platelet Count 206 10^3/uL (130-400); Red Blood Cell Count 4.25 10^6/uL (4.70-6.10); White Blood Cell Count 7.6 10^3/uL (4.8-10.8)
[2024-07-10 19:19] LABS: Absolute Neutrophils -Man Diff 4.7 10^3/uL (1.4-6.5); Band Neutrophils 0 % (0-3); Eosinophils 3 % (0-6); Lymphocytes 12 % (20-51); Monocytes 20 % (2-9); Myelocytes 1 % (-); Normal RBC Morphology Yes; Platelets Checked Yes; Segmented Neutrophils 63 % (42-75); Total Cells Counted 100
[2024-07-10 19:24] LABS: ALT (SGPT) 21 U/L (0-50); AST (SGOT) 33 U/L (17-59); Alkaline Phosphatase 88 U/L (38-126); Blood Urea Nitrogen 43 mg/dl (9-20); Calcium 8.9 mg/dl (8.4-10.2); Carbon Dioxide 21 mmol/L (22-30); Chloride 105 mmol/L (98-107); Glucose 167 mg/dl (70-99); Potassium 4.4 mmol/L (3.5-5.1); Sodium 138 mmol/L (135-145); Total Bilirubin 1.6 mg/dl (0.2-1.3); Total Protein 8.4 g/dl (6.3-8.2); eGFR 28.46
[2024-07-10 20:00] VITALS: BP 111/61
[2024-07-10 21:00] VITALS: BP 119/66
--- NOTE | 2024-07-10 21:53 | ED.GENMED ---
History of Present Illness
General
Chief Complaint: Catheter/Tube Problem
Source: patient and family
Exam Limitations: none
Time Seen by Provider: 07/10/24 21:35
Nursing documentation reviewed up to this point in time: agreed with
History of Present Illness
History of Present Illness:
84-year-old male presents Emergency Department due to drainage coming from around gallbladder, and mild abdominal pain and right upper quadrant.
Past History
Past History
ED Past Medical History: Arrthythmia (Atrial fib), CHF, GERD, HTN, [place], Valvular disease, Psychiatric (Anxiety, depression) and Other (Dementia Tuberculosis)
ED Past Surgical History: None
Social History
Tobacco: Former smoker
Alcohol: None
Drug: None
Personal:
Living: with family
Review of Systems
Review of Systems
Allergies reviewed?: Yes
All Other Systems: Not applicable
Constitutional: Reports no symptoms
EENT: Reports no symptoms
Respiratory: Reports no symptoms
Cardiac: Reports no symptoms
ABD/GI: Reports abdominal pain
: Reports no symptoms
Musculoskeletal: Reports no symptoms
Skin: Reports other (drainage from cholecystostomy tube)
Neurological: Reports no symptoms
Endocrine: Reports no symptoms
Hematologic/Lymphatic: Reports no symptoms
Phy Exam
Physical Exam
Physical Exam:
Physical Exam
General: Afebrile
Neck: supple. no meningeal signs. normal posterior pharynx
Heart: s1/s2 regular rate and rhythm, no murmur. equal radial
pulses.
HEENT: Pupils equal round reactive to light, EOMI
Lungs: no acute respiratory distress. clear bilaterally
Abdomen: normal bowel sounds. not tender. no CVAT, cholecystostomy in place with drainage around it
Neuro: alert and oriented to person and place. no focal neurological deficits cranial nerves II through XII intact
Skin: no rash
Psychiatric: well kept. interactive and cooperative
Extremities: no edema. no calf tenderness. negative homans. good distal pulses
Course
Orders/Labs/Results
Orders:
Orders
07/10/24 18:54
Complete Blood Count/With Diff Urgent
Comprehensive Metabolic Panel Urgent
Lipase Urgent
Comment: ADD ON
Manual Differential Urgent
07/10/24 21:45
Add On- LAB Urgent
Tests Added?: lipase
07/10/24 21:52
CT Abd/pel Without Iv Or Oral Urgent
Comment:
Reason For Exam: RUQ pain, drainage aroud perc cholecystostomy
07/10/24 23:28
Zosyn 2.25 grams IVPB NOW Piperacillin/Tazo 2.25 Gram [Zosyn] 2.25 grams in 50 ml IV NOW
Abnormal Lab Results
07/10/24
18:54
RBC 4.25 L 10^6/uL
(4.70-6.10)
Hgb 10.7 L g/dL
(13.0-18.0)
Hct 33.9 L %
(39.0-52.0)
MCV 79.8 L fL
(80.0-94.0)
MCH 25.2 L pg
(27.0-31.0)
MCHC 31.6 L g/dL
(33.0-37.0)
RDW 18.0 H %
(11.5-14.5)
Lymphocytes (Manual) 12 L %
(20-51)
Monocytes (Manual) 20 H %
(2-9)
Carbon Dioxide 21 L mmol/L
(22-30)
BUN 43 H mg/dl
(9-20)
Creatinine 2.2 H mg/dL
(0.7-1.3)
Glucose 167 H mg/dl
(70-99)
Total Bilirubin 1.6 H mg/dl
(0.2-1.3)
Total Protein 8.4 H g/dl
(6.3-8.2)
Lipase 557 H U/L
(23-300)
07/10/24 18:54
07/10/24 18:54
Vital Signs
Initial and Last Documented VS:
Initial Vital Signs
Pulse Resp BP
90 27 148/83
07/10/24 18:49 07/10/24 18:49 07/10/24 18:49
Last Documented Vital Signs
Temp Pulse Resp BP Pulse Ox
98.4 F 90 29 120/83 95
07/10/24 23:03 07/10/24 23:00 07/10/24 23:00 07/10/24 22:00 07/10/24 23:00
MDM/Problems Addressed
Differential Diagnosis Includes:
cholecystitis, pancreatitis, clogged Biliary drainage
MDM/Problems Addressed:
84-year-old male with pancreatitis, obstructed cholecystostomy tube, cholecystitis.
Chronic conditions affecting care: Arrhythmia, Previous abdomnial surgery and Kidney disease
Acute Exacerbation and/or Progression of Chronic Illness: Arrhythmia and Previous abdomnial surgery
*Radiology
Radiology exam reviewed: radiology read reviewed (CT abdomen pelvis shows stranding around gallbladder, gallbladder distended)
*Pulse Oximetry
Patient hypoxic: no
*Critical Care Note
Total Time (30-74mins, 75-104mins- exclusive of procedures): Not Applicable
Data Reviewed
Review of Other/Old Records Reveals: Radiology Studies (Prior CT scan showed cholecystostomy in place on 06/18/2024)
Patient Management
Social determinants of health affecting care: Living situation
Discussion with other providers: Hospitalist and Radiologist (Interventional radiology)
Escalation/DeEscalation of care consider admission/obs:
admission indicated
ED Attending Note
-
Portions of this chart may have been created with voice recognition software.� Occasional wrong word or��sound alike� substitutions may have occurred due to the inherent limitations of voice recognition software.
Discharge Plan
Departure
Patient Disposition: Admit
Date of Disposition: 07/10/24
Time of Disposition: 23:33
Admit to: Telemetry
Presentation/result/management discussed w/ accepting MD/DO: Hospitalist
Patient with high blood pressure during this ER visit?: Yes
Condition: Fair
Discharge Problem:
Cholecystostomy tube dysfunction, Alzheimer's disease, unspecified, Chronic kidney disease, stage 3b, Pancreatitis, Atrial fibrillation
Prescriptions:
No Action
colchicine 0.6 mg tablet
0.6 mg PO BIDPRN PRN (Reason: gout)
amoxicillin-pot clavulanate 500-125 mg Tablet
1 tab PO Q12 Qty: 14 0RF
Eliquis 2.5 mg Tablet
2.5 mg PO BID Qty: 60 1RF
atorvastatin 40 mg Tablet
40 mg PO QPM Qty: 30 0RF
aspirin 81 mg Tablet,Chewable
81 mg PO DAILY Qty: 30 0RF
furosemide 20 mg Tablet
20 mg PO DAILY Qty: 30 0RF
metoprolol succinate 25 mg Tablet Extended Release 24 Hr
25 mg PO DAILY Qty: 30 0RF
pantoprazole [Protonix] 20 mg tablet,delayed release (DR/EC)
20 mg PO DAILY Qty: 30 1RF
Referrals:
Manpreet Shaw DO [Family Provider] -
Interventions
Interventions:
*Risk Screen - Suicide Last Done: 07/10/24 18:44
*General Assessment Last Done: 07/10/24 18:43
*Neglect/Abuse Screening Last Done: 07/10/24 18:44
*ED COVID-19 Vaccine History Last Done: 07/10/24 18:43
RO-Kkkfal-Xcvzmsovta Assessment Last Done: 07/10/24 18:45
ED-Male Genitourinary Assessment Last Done: 07/10/24 18:45
Discharge Date and Time
Print Language: CHINESE
[2024-07-10 22:00] VITALS: BP 120/83
[2024-07-10 22:23] LABS: Lipase 557 U/L (23-300)
--- NOTE | 2024-07-11 00:07 | HPS.HSE ---
Family Physician
-
Family Physician: Manpreet Shaw
Chief Complaint
-
Tube Problem
History of Present Illness
Patient is an 84y M with PMH significant for A-Fib, CHF, ASCVD and recent acute cholecystitis s/p placement of cholecystostomy tube who presents to ED for evaluation of tube problem. History obtained from family at the bedside. Patient
initially had mariah tube placed on 06/12. He was treated with IV Zosyn and discharged on Augmentin which he has since completed. Patient had drainage from the mariah tube for about one week after discharge according to his . After this the
drainage seemed to stop completely. She has appreciated no significant output for the past 2 weeks or so.
Over the past 2-3 days, patient has seemed more weak than usual, less interactive, generally fatigued. He has indicated some discomfort / pain in the RUQ area - typically triggered by movement.
Today noted some scant drainage into the mariah bag. She also noted drainage of brownish liquid from around the cholecystostomy tube itself. She states that this had never occurred previously.
Patient was brought to the ED for further evaluation and treatment.
At present, patient is resting comfortably and appears in no distress.
Medical History
Past Medical History
Past Medical History: Reports Other
Additional Past Medical History:
Cardiomyopathy, EF 35�40% in 2012
Hypertension
Atrial Fibrillation
Chronic Cholecystitis s/p Cholecystostomy Tube
CKD Stage IIIB
Anemia of Chronic Disease
Alzheimer's Dementia
Depression
GERD
Gout
Past Surgical History: Reports Other
Additional Past Surgical History:
Cholecystostomy Tube Placement (06/12/24)
Social History
Tobacco: Non-smoker
Alcohol: None
Drug: None
Living: With Family
Family History
Family History: Not pertinent
Allergies / Home Medications
Allergies reflects when Allergies were last updated in [employer].
Home Medications with original date entered in [employer]
Allergy/Medication List:
Allergies
Allergy/AdvReac Type Severity Reaction Status Date / Time
No Known Allergies Allergy Verified 06/18/24 16:55
Home Medications
colchicine 0.6 mg tablet 0.6 mg PO QPM 10/19/22
apixaban 2.5 mg tablet (Eliquis) 2.5 mg PO BID #60 tabs 06/15/24
aspirin 81 mg chewable tablet 81 mg PO DAILY #30 tabs 06/15/24
atorvastatin 40 mg tablet 40 mg PO QPM #30 tabs 06/15/24
furosemide 20 mg tablet 20 mg PO DAILY #30 tabs 06/15/24
metoprolol succinate 25 mg tablet,extended release 24 hr 25 mg PO DAILY #30 tabs 06/15/24
pantoprazole 20 mg tablet,delayed release (Protonix) 20 mg PO DAILY #30 tabs 06/15/24
Review of Systems
-
History Source: Family
A 12 point ROS was completed and negative except as noted: Yes
Constitutional: Reports Fatigue; Denies Fever or Chills
EENT: Denies Sore Throat
Respiratory: Denies Cough or Trouble Breathing
Cardiac: Denies Chest Pain
Abdomen/GI: Reports Abdominal Pain and Diarrhea (Few loose stools - improved from prior.); Denies Nausea or Vomiting
Musculoskeletal: Denies Joint Pain or Edema
Neurological: Denies Dizzy or Headache
Psych: Reports Dementia
Physical Exam
Vital Signs
Vital Signs
Temp Pulse Resp BP Pulse Ox
98.4 F 90 29 120/83 95
07/10/24 23:03 07/10/24 23:00 07/10/24 23:00 07/10/24 22:00 07/10/24 23:00
Physical Exam
General: Other (84y M with flushed facies. Not in distress.)
HEENT: Other (Dry MM. Neck supple.)
Respiratory: Other (Decreased at bases - poor effort. Otherwise clear.)
Cardiac: S1/S2 and Irregular Rhythm; No Murmur
GI: Soft, Non Tender, Non Distended, Normal Bowel Sounds and Other (RUQ mariah tube in place. Evidence of prior drainage at tube site - no active drainage / discharge. Minimal surrounding erythema. Scant dark brown liquid in collection device. No
abdominal tenderness / rebound/ guarding.)
Musculoskeletal: No Clubbing, No Cyanosis and No Edema
Neuro: Awake and Alert; No Oriented
Psych: Apparent Dementia
Laboratory Results
-
07/10/24 18:54
07/10/24 18:54
Laboratory Results
Total Bilirubin 1.6 mg/dl (0.2-1.3) H 07/10/24 18:54
AST 33 U/L (17-59) 07/10/24 18:54
ALT 21 U/L (0-50) 07/10/24 18:54
Alkaline Phosphatase 88 U/L (38-126) 07/10/24 18:54
Lipase 557 U/L (23-300) H 07/10/24 18:54
Impression/Plan
-
A/P: Patient is an 84y M with PMH significant for A-Fibm hypertension, CHF and recent cholecystitis s/p/ mariah tube placement who presents to ED for evaluation of tube issue.
Cholecystostomy Tube Malfunction
Chronic Calculous Cholecystitis
- Admit for further evaluation and treatment.
- CT done in the ED shows catheter in correct position, but with distended gallbladder suggesting catheter obstruction.
- Increased surrounding stranding / inflammation. No fluid collection, abscess, etc.
- Will cover with empiric abx for now.
- IR eval in the AM for tube assessment / adjustment.
- Follow for any new / worsening symptoms.
ASCVD / Recent NSTEMI
History of Cardiomyopathy
Benign Hypertension
- Stable. No chest pain, apparent dyspnea, etc.
- Continue current CV med regimen including ASA, statin, etc.
- Hold diuretic acutely.
- Holding parameters for BP medications.
Permanent Atrial Fibrillation
- Stable. Continue metoprolol for rate control.
- Hold Eliquis acutely pending any necessary intervention - resume when appropriate.
CKD IV
- SCr = 2.2 which seems consistent with his recent baseline.
- Hold Lasix for now as noted above and follow I/Os, daily weights, etc.
- Follow for changes in renal function.
Vascular Dementia
- Stable. Follow for any acute delirium / agitation / etc.
- Language barrier adds to potential for confusion.
DVT Prophylaxis: SCDs while Eliquis on hold.
Code Status: DNR
[2024-07-11] MEDS: ZOSYN 50 IV ×3 (00:52→12:09)
[2024-07-11 02:12] VITALS: BP 145/77
--- NOTE | 2024-07-11 02:26 | TRANSFER ---
pt arrived from ED via stretcher accompanied by ED staff. pt was a pullover from stretcher to bed. pt unable to answer any questions, only Montserratian speaking, he does not understand any Barbadian. VSS. pt does not appear to be in any distress at this
moment, call shook within reach. POC ongoing, will continue to monitor.
[2024-07-11 07:53] VITALS: BP 133/76
--- NOTE | 2024-07-11 08:38 | VNURNOTE ---
Chart reviewed. Patient is current with [facility] nursing. Will continue to follow hospital course and DC plans.
[2024-07-11 08:48] VITALS: BP 133/82; BP_SYST 91
[2024-07-11 09:30] VITALS: BP 139/83; BP_SYST 88
[2024-07-11 09:56] VITALS: BP 139/83
[2024-07-11] MEDS: LOW STRENGTH ASPIRIN 81 MG PO (10:45)
[2024-07-11] MEDS: PROTONIX 20 MG PO (10:45)
[2024-07-11] MEDS: TOPROL XL 25 MG PO (10:45)
[2024-07-11 12:45] LABS: Hematocrit 33.3 % (39.0-52.0); Hemoglobin 10.2 g/dL (13.0-18.0); Mean Corp Hgb Conc. 30.6 g/dL (33.0-37.0); Mean Corpuscular Hgb 25.2 pg (27.0-31.0); Mean Corpuscular Volume 82.4 fL (80.0-94.0); Mean Platelet Volume 10.9 fL (7.4-10.4); Platelet Count 198 10^3/uL (130-400); Red Blood Cell Count 4.04 10^6/uL (4.70-6.10); White Blood Cell Count 5.5 10^3/uL (4.8-10.8)
[2024-07-11 12:59] LABS: ALT (SGPT) 19 U/L (0-50); AST (SGOT) 33 U/L (17-59); Albumin 3.7 g/dl (3.5-5.0); Alkaline Phosphatase 86 U/L (38-126); Blood Urea Nitrogen 49 mg/dl (9-20); Calcium 9.1 mg/dl (8.4-10.2); Carbon Dioxide 26 mmol/L (22-30); Chloride 105 mmol/L (98-107); Direct Bilirubin 0.3 mg/dl (0.0-0.4); Glucose 117 mg/dl (70-99); Iron 41 ug/dl (49-181); Potassium 4.6 mmol/L (3.5-5.1); Sodium 142 mmol/L (135-145); Total Bilirubin 1.8 mg/dl (0.2-1.3); Total Protein 8.1 g/dl (6.3-8.2); eGFR 21.31
[2024-07-11 13:08] LABS: Percent Saturation 19 % (20-50); Total Iron Binding Capacity 215 ug/dl (261-462)
--- NOTE | 2024-07-11 13:56 | W.DS.TRANS ---
DC Summary - [employer]
-
Discharge Instructions:
Discharge Diagnosis/Procedures Acute cholecystitis.
Admitted for percutaneous cholecystectomy
exchange
Diet Regular
Instructions:
Stand-Alone Forms:
Changes to Home Medications: No
Discharge Medications:
DC Medications w/original date entered in [employer]
colchicine 0.6 mg tablet 0.6 mg PO QPM 10/19/22
apixaban 2.5 mg tablet (Eliquis) 2.5 mg PO BID #60 tabs 06/15/24
aspirin 81 mg chewable tablet 81 mg PO DAILY #30 tabs 06/15/24
atorvastatin 40 mg tablet 40 mg PO QPM #30 tabs 06/15/24
furosemide 20 mg tablet 20 mg PO DAILY #30 tabs 06/15/24
metoprolol succinate 25 mg tablet,extended release 24 hr 25 mg PO DAILY #30 tabs 06/15/24
pantoprazole 20 mg tablet,delayed release (Protonix) 20 mg PO DAILY #30 tabs 06/15/24
amoxicillin 500 mg-potassium clavulanate 125 mg tablet (Augmentin) 1 tab PO Q12H #6 tabs 07/11/24
Home Medication Changes
Pending Results: No
[2024-07-11 14:51] VITALS: BP 158/92
[2024-07-11 16:09] LABS: Vitamin B12 816 pg/ml (239-931)
== END 2024-07-11 15:22 | disposition home or self-care (01) | DRG 446 ==
LOC: 4 EAST ACU 00:19
PROVIDERS: Radiology Vascular & Interventional Radiology; ADMITTING PHYSICIAN Hospitalist; ATTENDING PHYSICIAN Internal Medicine; EMERGENCY PHYSICIAN Emergency Medicine; FAMILY PHYSICIAN Family Medicine
PROC: 0FH Hepatobiliary System and Pancreas, Insertion (ICD-10-PCS; 2024-07-11)
PROC: 0FP Hepatobiliary System and Pancreas, Removal (ICD-10-PCS; 2024-07-11)
DX: K81.0 Acute cholecystitis (principal); Z87.891 Personal history of nicotine dependence
CPT/HCPCS: 47536; 74176; 80053; 82248; 82607; 83540; 83550; 83690; 85025; 85027; 99285; C1729; C1769

== ENCOUNTER 2024-08-03 10:20 | Emergency (ER) | payer OTHER, SELFPAY ==
[2024-08-03 10:44] VITALS: BP 117/71
--- NOTE | 2024-08-03 10:45 | ED.GENMED ---
ED Provider Triage
<Gabriel Matt PA-C - Last Filed: 08/03/24 10:45>
-
Patient seen by provider in Triage?: Seen in Triage
84-year-old male with biliary drain presents in referral from visiting nurse after discussing with the doctor that the drainage has become more foul in odor and has decreased in amount. Family also notes increased confusion and weakness. Family
estimates he had the drain placed about a month ago.
Patient does seem somewhat confused at triage but vital signs are stable. Start workup with labs including CT of abdomen with IV contrast
Patient seen by healthcare provider at triage but warrants further assessment
History of Present Illness
<Gabriel Matt PA-C - Last Filed: 08/03/24 10:45>
General
Chief Complaint: Weakness
Time Seen by Provider: 08/03/24 14:44
<Esther Theodore PA-C - Last Filed: 08/03/24 20:07>
General
Source: records and family
Exam Limitations: dementia
History of Present Illness
History of Present Illness:
84yoM with a history of dementia, atrial fibrillation, CHF, hypertension, CKD presenting with his daughter for evaluation of a biliary drain issue. Due to patient's dementia, history is provided by daughter at bedside. Patient was admitted in
May 2024 for cholecystitis. A cholecystotomy tube was placed at that time with plan for delayed cholecystectomy which is scheduled for next month. Over the past few days, the drainage from the biliary tube has been more yellow and thinner than
usual. Daughter also states it has a mildly foul odor. The visiting nurse came today and daughter reportedly discussed this with the surgery team and was advised to bring him to the ED. Patient currently at baseline mental status. Daughter denies
any fevers or obvious abdominal pain.
Past History
<DONELL Gonzalez Last Filed: 08/03/24 10:45>
Past History
ED Past Medical History: Arrthythmia (Atrial fib), CHF, GERD, HTN, [place], Valvular disease, Psychiatric (Anxiety, depression) and Other (Dementia Tuberculosis)
ED Past Surgical History: None
Social History
Tobacco: Former smoker
Alcohol: None
Drug: None
Personal:
Living: with family
Phy Exam
<Esthre Theodore PA-C - Last Filed: 08/03/24 20:07>
General Physical Exam
General Presentation: no apparent distress
General age: appears stated age
General Skin: warm and dry
General Habitus: elderly
General Mental: alert
ENT Exam
ENT Exam: normocephalic
Gastrointestinal Exam
Gastrointestinal Exam: non tender, soft, non distended and other (Biliary drain in place. Small amount of yellow drainage in the collection bag. Abdomen soft, non-tender. No signs of abdominal wall cellulitis. )
Skin Exam
Skin Exam: normal color and warm/dry
Course
<Gabriel Matt PA-C - Last Filed: 08/03/24 10:45>
Orders/Labs/Results
Orders:
Orders
08/03/24 10:44
CT Abd/pel Without Iv Or Oral Urgent
Reason For Exam: pain in RUQ, change in drain output.
08/03/24 11:03
Ammonia Urgent
Complete Blood Count/With Diff Urgent
Comprehensive Metabolic Panel Urgent
Lipase Urgent
Abnormal Lab Results
08/03/24
11:03
RBC 4.13 L 10^6/uL
(4.70-6.10)
Hgb 10.2 L g/dL
(13.0-18.0)
Hct 32.3 L %
(39.0-52.0)
MCV 78.2 L fL
(80.0-94.0)
MCH 24.7 L pg
(27.0-31.0)
MCHC 31.6 L g/dL
(33.0-37.0)
RDW 19.7 H %
(11.5-14.5)
MPV 10.7 H fL
(7.4-10.4)
Abs Immat Gran (auto) 0.1 H 10^3/uL
(0-0.05)
Absolute Monos (auto) 0.9 H 10^3/uL
(0.1-0.6)
Immature Gran % 1.0 H %
(0-0.5)
Monocytes % 17.2 H %
(1.7-9.3)
BUN 44 H mg/dl
(9-20)
Creatinine 2.1 H mg/dL
(0.7-1.3)
Glucose 135 H mg/dl
(70-99)
Total Bilirubin 2.5 H mg/dl
(0.2-1.3)
Ammonia < 9 L umol/L
(9-30)
Total Protein 8.9 H g/dl
(6.3-8.2)
Lipase 365 H U/L
(23-300)
08/03/24 11:03
08/03/24 11:03
Vital Signs
Initial and Last Documented VS:
Initial Vital Signs
Temp Pulse Resp BP Pulse Ox
98.2 F 80 16 117/71 98
08/03/24 10:44 08/03/24 10:44 08/03/24 10:44 08/03/24 10:44 08/03/24 10:44
Last Documented Vital Signs
Temp Pulse Resp BP Pulse Ox
98.2 F 83 18 137/78 100
08/03/24 10:44 08/03/24 15:51 08/03/24 15:51 08/03/24 15:51 08/03/24 15:51
<Esther Theodore PA-C - Last Filed: 08/03/24 20:07>
Orders/Labs/Results
Orders:
Orders
08/03/24 10:44
CT Abd/pel Without Iv Or Oral Urgent
Reason For Exam: pain in RUQ, change in drain output.
08/03/24 11:03
Ammonia Urgent
Complete Blood Count/With Diff Urgent
Comprehensive Metabolic Panel Urgent
Lipase Urgent
Abnormal Lab Results
08/03/24
11:03
RBC 4.13 L 10^6/uL
(4.70-6.10)
Hgb 10.2 L g/dL
(13.0-18.0)
Hct 32.3 L %
(39.0-52.0)
MCV 78.2 L fL
(80.0-94.0)
MCH 24.7 L pg
(27.0-31.0)
MCHC 31.6 L g/dL
(33.0-37.0)
RDW 19.7 H %
(11.5-14.5)
MPV 10.7 H fL
(7.4-10.4)
Abs Immat Gran (auto) 0.1 H 10^3/uL
(0-0.05)
Absolute Monos (auto) 0.9 H 10^3/uL
(0.1-0.6)
Immature Gran % 1.0 H %
(0-0.5)
Monocytes % 17.2 H %
(1.7-9.3)
BUN 44 H mg/dl
(9-20)
Creatinine 2.1 H mg/dL
(0.7-1.3)
Glucose 135 H mg/dl
(70-99)
Total Bilirubin 2.5 H mg/dl
(0.2-1.3)
Ammonia < 9 L umol/L
(9-30)
Total Protein 8.9 H g/dl
(6.3-8.2)
Lipase 365 H U/L
(23-300)
08/03/24 11:03
08/03/24 11:03
Vital Signs
Initial and Last Documented VS:
Initial Vital Signs
Temp Pulse Resp BP Pulse Ox
98.2 F 80 16 117/71 98
08/03/24 10:44 08/03/24 10:44 08/03/24 10:44 08/03/24 10:44 08/03/24 10:44
Last Documented Vital Signs
Temp Pulse Resp BP Pulse Ox
98.2 F 83 18 137/78 100
08/03/24 10:44 08/03/24 15:51 08/03/24 15:51 08/03/24 15:51 08/03/24 15:51
<Esther Theodore PA-C - Last Filed: 08/03/24 20:07>
MDM/Problems Addressed
Differential Diagnosis Includes:
84yoM with cholecystitis diagnosed in May with cholecystotomy tube in place. Presenting with yellow drainage from the tube that is somewhat foul-smelling over the past few days. No reported fevers. Hx of dementia and he is currently at baseline
mental status. VSS. He is non-toxic appearing. Abdomen is soft and non-tender. Small amount of yellow drainage noted in collection bag. Differential diagnosis includes but is not limited to: cholecystitis, intra-abdominal abscess, biliary drain
infection
Initial ED plan: Abdominal labs and CT obtained in triage. White count is normal. Bilirubin 2.5, remainder of LFTs are normal. Renal function at baseline. CT results pending. Will discuss with general surgery.
<Esther Theodore PA-C - Last Filed: 08/03/24 20:07>
*Critical Care Note
Total Time (30-74mins, 75-104mins- exclusive of procedures): Not Applicable
<Esther Theodore PA-C - Last Filed: 08/03/24 20:07>
Update Note
Update Note:
CT shows cholelithiasis with suggestion of cholecystitis. No fluid collection present. L kidney mass incidentally seen for which outpatient MRI is recommended. Findings discussed with Dr. Rhoades (general surgery) who evaluated patient at bedside.
Surgery recommending discharge on 14 day course of Levaquin and Flagyl. They will monitor him closely in the outpatient setting and order repeat blood work next week to monitor LFTs. Daughter in agreement with plan and was notified of incidental
findings. ED return precautions discussed including fevers/chills and abdominal pain. Patient discharged in stable condition.
ED Attending Note
<Gabriel Matt PA-C - Last Filed: 08/03/24 10:45>
-
Portions of this chart may have been created with voice recognition software.� Occasional wrong word or��sound alike� substitutions may have occurred due to the inherent limitations of voice recognition software.
Discharge Plan
Departure
Patient Disposition: Home (Routine Discharge)
Date of Disposition: 08/03/24
Time of Disposition: 15:19
Patient with high blood pressure during this ER visit?: No
Discharge Problem:
Infection of cholecystostomy drain
Instructions: Biliary Stent Placement
Prescriptions:
New
levofloxacin 750 mg tablet
750 mg PO DAILY 14 Days Qty: 14 0RF
metronidazole 500 mg tablet
500 mg PO Q8H 14 Days Qty: 42 0RF
No Action
colchicine 0.6 mg tablet
0.6 mg PO QPM
Eliquis 2.5 mg Tablet
2.5 mg PO BID Qty: 60 1RF
atorvastatin 40 mg Tablet
40 mg PO QPM Qty: 30 0RF
aspirin 81 mg Tablet,Chewable
81 mg PO DAILY Qty: 30 0RF
furosemide 20 mg Tablet
20 mg PO DAILY Qty: 30 0RF
metoprolol succinate 25 mg Tablet Extended Release 24 Hr
25 mg PO DAILY Qty: 30 0RF
pantoprazole [Protonix] 20 mg tablet,delayed release (DR/EC)
20 mg PO DAILY Qty: 30 1RF
amoxicillin-pot clavulanate [Augmentin] 500-125 mg tablet
1 tab PO Q12H Qty: 6 0RF
Referrals:
Ck Rhoades MD [Active] -
Manpreet Shaw DO [Family Provider] -
Activity Restrictions/Additional Instructions:
Give antibiotics as prescribed. Monitor drain output.
Please follow-up with general surgery on Tuesday. Edvard will need repeat blood work next week. Please follow-up with your family doctor regarding the left kidney mass seen on CT scan.
Return to the ER with any worsening symptoms, abdominal pain, fevers, chills.
Interventions
Interventions:
*Risk Screen - Suicide Last Done: 08/03/24 10:44
*Neglect/Abuse Screening Last Done: 08/03/24 10:44
*Nursing Disposition Last Done: 08/03/24 15:54
ED- Cardiac Assessment Last Done: 08/03/24 15:51
ED- Neurological Assessment Last Done: 08/03/24 15:51
ED- Pulmonary Assessment Last Done: 08/03/24 15:51
Discharge Date and Time
Discharge Date/Time: 08/03/24 15:54
Print Language: BELARUSIAN
[2024-08-03 11:11] LABS: % Basophils 0.6 % (0-2); % Lymphocytes 29.7 % (20.5-51.1); % Monocytes 17.2 % (1.7-9.3); % Neutrophils 49.5 % (42.2-75.2); Absolute Eosinophils 0.1 10^3/uL (0-0.7); Absolute Immature Granulocytes 0.1 10^3/uL (0-0.05); Absolute Lymphocytes 1.5 10^3/uL (1.2-3.4); Absolute Monocytes 0.9 10^3/uL (0.1-0.6); Absolute Neutrophils 2.5 10^3/uL (1.4-6.5); Hematocrit 32.3 % (39.0-52.0); Hemoglobin 10.2 g/dL (13.0-18.0); Mean Corp Hgb Conc. 31.6 g/dL (33.0-37.0); Mean Corpuscular Hgb 24.7 pg (27.0-31.0); Mean Corpuscular Volume 78.2 fL (80.0-94.0); Mean Platelet Volume 10.7 fL (7.4-10.4); Nucleated Red Blood Cells % 0 % (-); Platelet Count 169 10^3/uL (130-400); Red Blood Cell Count 4.13 10^6/uL (4.70-6.10); Red Cell Dist. Width 19.7 % (11.5-14.5)
[2024-08-03 11:20] LABS: Ammonia < 9 umol/L (9-30)
[2024-08-03 11:40] LABS: ALT (SGPT) 24 U/L (0-50); AST (SGOT) 49 U/L (17-59); Albumin 4.2 g/dl (3.5-5.0); Alkaline Phosphatase 84 U/L (38-126); Blood Urea Nitrogen 44 mg/dl (9-20); Calcium 8.8 mg/dl (8.4-10.2); Carbon Dioxide 23 mmol/L (22-30); Chloride 103 mmol/L (98-107); Glucose 135 mg/dl (70-99); Lipase 365 U/L (23-300); Potassium 4.8 mmol/L (3.5-5.1); Sodium 140 mmol/L (135-145); Total Bilirubin 2.5 mg/dl (0.2-1.3); Total Protein 8.9 g/dl (6.3-8.2); eGFR 30.09
[2024-08-03 15:51] VITALS: BP 137/78
== END 2024-08-03 15:54 | disposition home or self-care (01) ==
LOC: EMR 10:20
PROVIDERS: Physician Assistant; EMERGENCY PHYSICIAN Emergency Medicine; FAMILY PHYSICIAN Family Medicine
DX: T85.79XA Infection and inflammatory reaction due to other internal prosthetic devices, implants and grafts, initial encounter (principal); X58.XXXA Exposure to other specified factors, initial encounter; F03.90 Unspecified dementia, unspecified severity, without behavioral disturbance, psychotic disturbance, mood disturbance, and anxiety; I13.0 Hypertensive heart and chronic kidney disease with heart failure and stage 1 through stage 4 chronic kidney disease, or unspecified chronic kidney disease; I50.9 Heart failure, unspecified; N18.9 Chronic kidney disease, unspecified; I48.91 Unspecified atrial fibrillation; K21.9 Gastro-esophageal reflux disease without esophagitis; I25.2 Old myocardial infarction; I38 Endocarditis, valve unspecified; F41.8 Other specified anxiety disorders; Z87.891 Personal history of nicotine dependence
CPT/HCPCS: 99284; 74176; 80053; 82140; 83690; 85025

== ENCOUNTER → 2024-08-27 12:33 | Outpatient (REF) | payer OTHER, MEDICARE, SELFPAY ==
[2024-08-27 13:30] VITALS: BP 125/63; BP_SYST 64
[2024-08-27 14:37] VITALS: BP 139/86
== END ==
LOC: RADI 12:33
PROVIDERS: ATTENDING PHYSICIAN Surgery; FAMILY PHYSICIAN Family Medicine
DX: T85.590A Other mechanical complication of bile duct prosthesis, initial encounter (principal); Y73.2 Prosthetic and other implants, materials and accessory gastroenterology and urology devices associated with adverse incidents; K80.10 Calculus of gallbladder with chronic cholecystitis without obstruction
CPT/HCPCS: 47536; C1729; C1769

== ENCOUNTER 2024-08-30 15:53 | Inpatient (IN) | payer OTHER, SELFPAY ==
[2024-08-30] VITALS (15 sets, daily range): BP systolic 0–165; BP diastolic 59–93; BMI 27.3
[2024-08-30] MEDS: TYLENOL 1000 MG PO (11:42)
[2024-08-30] MEDS: NORMOSOL-R/PLASMALYTE-A 1000 IV ×2 (11:43→17:09)
--- NOTE | 2024-08-30 14:38 | W.IMMPOSTOP ---
Surgical Immed Post Op Note
-
Primary Surgeon: [place]
Assisting Surgeon: None
Pre-op Diagnosis: Chronic cholecystitis
Post-op Diagnosis: Chronic cholecystitis
Procedure Performed: Laparoscopic subtotal cholecystectomy
Anesthesia Type: General
Specimen / Cultures: None
Estimated Blood Loss: 11 cc
Complications: None
Operative Findings:
1. Dense chronic inflammation involving entire gallbladder with large stone impacted at infundibulum
2. Unable to safely identify cystic duct necessitating subtotal cholecystectomy with small rim of gallbladder remaining
3. All visible stones, debris, and drain removed, remaining visible mucosa cauterized, Surgiflo applied
4. 19 Lithuanian Vinh drain into operative field
--- NOTE | 2024-08-30 17:00 | PTCARENOTE ---
pt admitted to 2S room 2113 from PACU at 1640 via bed. pt was accompanied by his daughter who assisted in admission database completion. DNR bracelet placed. pt tolerating sips of ensure via straw. IVF infusing. 4 lap sites on abdomen SIDEHAND
w/surgical glue, Right mid abd ANNE patent w/dsg intact at site. serosanguineous output noted. attends in place. pt was incontinent upon arrival to PACU per report. band aid intact to Right upper abdomen from old mariah drainage tube. per
daughter pt is Vincentian speaking,WC bound at home, and makes no attempts to get out of bed. Bed alarm placed and activated for pt safety. telemetry placed and reading afib 80's. care ongoing.
[2024-08-30] MEDS: TYLENOL 650 MG PO ×3 (17:08→23:37)
[2024-08-30] MEDS: LIPITOR 40 MG PO (17:11)
[2024-08-30] MEDS: ZOSYN 50 IV ×2 (18:29→23:37)
[2024-08-31 03:20] VITALS: BP 144/70
[2024-08-31] MEDS: TYLENOL 650 MG PO ×3 (03:25→20:55)
[2024-08-31] MEDS: NORMOSOL-R/PLASMALYTE-A 1000 IV (04:15)
[2024-08-31 05:34] LABS: Hematocrit 28.3 % (39.0-52.0); Hemoglobin 8.9 g/dL (13.0-18.0); Mean Corp Hgb Conc. 31.4 g/dL (33.0-37.0); Mean Corpuscular Hgb 24.5 pg (27.0-31.0); Mean Corpuscular Volume 77.7 fL (80.0-94.0); Mean Platelet Volume 10.6 fL (7.4-10.4); Platelet Count 170 10^3/uL (130-400); Red Blood Cell Count 3.64 10^6/uL (4.70-6.10); Red Cell Dist. Width 22.3 % (11.5-14.5); White Blood Cell Count 5.7 10^3/uL (4.8-10.8)
[2024-08-31] MEDS: ZOSYN 50 IV ×3 (05:34→17:50)
[2024-08-31 05:57] LABS: ALT (SGPT) 35 U/L (0-50); AST (SGOT) 75 U/L (17-59); Alkaline Phosphatase 90 U/L (38-126); Blood Urea Nitrogen 31 mg/dl (9-20); Calcium 8.4 mg/dl (8.4-10.2); Carbon Dioxide 24 mmol/L (22-30); Chloride 104 mmol/L (98-107); Estimated Creatinine Clearance 27 ml/min; Glucose 129 mg/dl (70-99); Potassium 4.9 mmol/L (3.5-5.1); Sodium 136 mmol/L (135-145); Total Bilirubin 1.2 mg/dl (0.2-1.3); Total Protein 7.3 g/dl (6.3-8.2); eGFR 36.21
[2024-08-31 06:00] VITALS: BMI 26.7
--- NOTE | 2024-08-31 07:28 | W.PN.GS2 ---
Addendum entered and electronically signed by Ck Rhoades MD 08/31/24 07:42:
Correction:
-- DVT: SQH, will resume Eliquis at 48-72 hours pending progression
Original Note:
Today's Communication / Plan
-
-- LFD
-- Pain control: Tylenol, Tramadol, IV Dilaudid PRN
-- HLIV
-- Abx: Zosyn
-- DVT: Lovenox, will resume Eliquis at 48-72 hours pending progression
-- GI: PPI
-- ANNE drain to remain in place for at least 1 week for monitoring of bile leak
-- Tentative plan for DC tomorrow pending drain character and dietary tolerance
Assessment / Plan
-
Patient is an 84 yo M POD#1 s/p laparoscopic subtotal cholecystectomy
AVSS
Labs unremarkable, normal bilirubin, mild AST elevation due to liver manipulation, downtrending chronic kidney disease creatinine
Recovering well overall. Plan to monitor in hospital setting given severity of cholecystitis for additional IV exam and monitoring of drain.
-- LFD
-- Pain control: Tylenol, Tramadol, IV Dilaudid PRN
-- HLIV
-- Abx: Zosyn
-- Home meds
-- DVT: Lovenox, will resume Eliquis at 48-72 hours pending progression
-- GI: PPI
-- ANNE drain to remain in place for at least 1 week for monitoring of bile leak
-- Tentative plan for DC tomorrow pending drain character and dietary tolerance
Subjective Data
-
Date of Service: August 31, 2024
No complaints.
Objective Data
-
Intake and Output
08/30/24 08/31/24 09/01/24
06:59 06:59 06:59
Intake Total 2009
Output Total
Balance 1950 / 1950
Intake:
Oral fluids 960 / 960
IV fluids (Total) 950 / 950
Normosol 50 / 50
IV piggybacks 100 / 100
Output:
Drain Output (Total) 60
Right Middle Abdomen Darell-
Zapata A
Other:
How many times incontinent 1
SMALL amount urine
How many times incontinent 1
SATURATED amount urine
Vital Signs
Temp Pulse Resp BP Pulse Ox
97.5 F 70 18 144/70 96
08/31/24 03:20 08/31/24 03:20 08/31/24 03:20 08/31/24 03:20 08/31/24 03:20
Lab Results
08/31/24 04:47
08/31/24 04:47
Calcium 8.4 mg/dl (8.4-10.2) 08/31/24 04:47
Total Bilirubin 1.2 mg/dl (0.2-1.3) 08/31/24 04:47
AST 75 U/L (17-59) H 08/31/24 04:47
ALT 35 U/L (0-50) 08/31/24 04:47
Alkaline Phosphatase 90 U/L (38-126) 08/31/24 04:47
Total Protein 7.3 g/dl (6.3-8.2) 08/31/24 04:47
Albumin 3.0 g/dl (3.5-5.0) L 08/31/24 04:47
Physical Exam
-
Gen: NAD
Abd: soft, mild tenderness, ND, non-eritoneal, incisions c/d/i - no erythema, ecchymosis or drainage, ANNE serosang, nonbilious
Patient has a candelario catheter: No
Patient has a central line: No
[2024-08-31 07:40] VITALS: BP 157/93
--- NOTE | 2024-08-31 08:52 | VNURNOTE ---
Chart reviewed. Patient is current with [facility] nursing. Will continue to follow hospital course and DC plans.
[2024-08-31] MEDS: PROTONIX 20 MG PO (08:53)
[2024-08-31] MEDS: LOW STRENGTH ASPIRIN 81 MG PO (08:53)
[2024-08-31] MEDS: LASIX 20 MG PO (08:53)
[2024-08-31] MEDS: TOPROL XL 25 MG PO (08:53)
[2024-08-31] MEDS: HEPARIN 5000 UNITS SC ×2 (08:54→20:55)
[2024-08-31] MEDS: TYLENOL PO ×2 (09:51→19:21)
[2024-08-31 11:22] VITALS: BP 138/72
--- NOTE | 2024-08-31 12:38 | PN.CDI ---
CDI
- -
CDI:
Physician Documentation Request
Admit Date: 08/30/24 15:53
Dear Doctor Verona,
Patient admitted for cholecystitis.
Clinical panel wound care nursing documentation
08/31/24
01:30
Drainage amount [Present on admission Generalized Sacrum] Scant
Drainage type [Present on admission Generalized Sacrum] Sanguineous
Pressure injury appearance [Present on admission Generalized Sacrum] [place] wound bed
Pressure injury stage [Present on admission Generalized Sacrum] Stage 2
Treatment provided [Present on admission Generalized Sacrum] Barrier
ointment
Physician documentation of the type and location of wounds is required for compliant documentation. Based on the above clinical findings and your assessment, please provide the following in your progress note:
1. Location of the ulcer/wound, including laterality.
2. Type (etiology) of ulcer/wound:
- Diabetic ulcer
- Arterial (ischemic) ulcer
- Traumatic wound
- Venous stasis ulcer
- Pressure (decubitus) ulcer
- Non-healing surgical wound
- Other
- Unable to determine
3. For a non-pressure ulcer, please indicate the depth/severity:
- Limited to the breakdown of skin
- With fat layer exposed
- With necrosis of muscle
- With necrosis of bone
- Other
- Unable to determine
4. If a pressure ulcer, please also include the stage* of the ulcer:
- Stage 1 - Skin intact, non-blanchable redness
- Stage 2 - Partial thickness loss of dermis, includes intact or open blister
- Stage 3 - Full thickness tissue not including bone, tendon or muscle
- Stage 4 - Full thickness tissue loss, including exposed bone, tendon or muscle
- Unstageable - Full thickness loss in which the base of the ulcer is covered by slough (yellow, prescott, ravi, green or brown) and/or eschar (prescott, brown or black) in the wound bed.
- Unable to determine
Use of terms such as suspected, likely, concern for, or probable (associated with a specific diagnosis that is being evaluated, monitored, or treated as if it exists) are acceptable and can be coded in the inpatient setting, when documented at the
time of discharge.
Thank you,
Anahy Jensen RN, BSN
CDI Specialist
Available via [employer] text
Please use your independent medical judgment in providing your response.
*Source: National Pressure Ulcer Advisory Panel (NPUAP)
--- NOTE | 2024-08-31 15:05 | PTCARENOTE ---
Patient having frequent pauses of about 2 seconds. Patients heart rate gosia as low as 36 in Afib. Lesly Byrnes made aware. No new orders.
--- NOTE | 2024-08-31 15:13 | CM ---
Reviewed the chart notes and spoke with the patient's daughter via telephone. The patient resides with the daughter in a one story home with two steps to enter. The patient has a hospital bed, rolling walker, and wheelchair. Baseline is
wheelchair bound. The patient is current with [facility], but no SNF. The patient's pharmacy of choice is [facility] and PCP is Manpreet Shaw. CM continues to be available to patient/family and is monitoring medical plan for needs
at discharge.
Plan: Discharge to home with resumption of [facility] services.
[2024-08-31 15:20] VITALS: BP 126/60
[2024-08-31] MEDS: LIPITOR 40 MG PO (17:49)
[2024-08-31 19:10] VITALS: BP 136/61
[2024-08-31 23:20] VITALS: BP 136/68
[2024-09-01] MEDS: ZOSYN 50 IV ×3 (00:13→13:33)
[2024-09-01] MEDS: TYLENOL PO ×4 (03:37→08:27)
[2024-09-01 03:54] VITALS: BMI 26.0
[2024-09-01 05:26] VITALS: BP 151/94
--- NOTE | 2024-09-01 05:27 | PTCARENOTE ---
Pt @ this time very restless in room removing tele leads and speaking Uzbek to RN. Translation line used and pt denies any pain or SOB but does not want wires on him. Industrial Waste Treatment Technician explained the purpose of wires and pt agreed to keep on @ this time.
Pt HR and blood pressure elevated during this period 151/94 HR 109-115 AFIB rhythm on monitor. Translation line used 3 times during shift, each time pt denies any discomfort or any concerns but will speak Uzbek to staff after hanging up and seems
to be agitated with care. Pt on bed alarm and call shook within reach.
[2024-09-01] MEDS: LOPRESSOR 5 MG IV (05:49)
--- NOTE | 2024-09-01 06:20 | PTCARENOTE ---
Pt given PRN lopressor for HR above 100 and SBP over 160. Pt HR @ this time 86
[2024-09-01 08:00] VITALS: BP 141/76
[2024-09-01] MEDS: LOW STRENGTH ASPIRIN 81 MG PO (08:14)
[2024-09-01] MEDS: LASIX 20 MG PO (08:14)
[2024-09-01] MEDS: TOPROL XL 25 MG PO (08:14)
[2024-09-01] MEDS: PROTONIX PO ×2 (08:15→08:27)
[2024-09-01] MEDS: HEPARIN SC (08:26)
--- NOTE | 2024-09-01 08:38 | W.PN.GS2 ---
Today's Communication / Plan
-
-- Home meds, monitor HR and if continued issues after home Metoprolol this AM consult Cardiology
-- DVT: Lovenox, will resume Eliquis today if Hb stable
-- ANNE drain to remain in place for at least 1 week for monitoring of bile leak
-- Tentative plan for DC today
Assessment / Plan
-
Patient is an 84 yo M POD#2 s/p laparoscopic subtotal cholecystectomy
AVSS
Repeat labs pending
Recovering well overall. No concerns from a surgical standpoint. Plan for antibiotics while hospitalized, none needed on discharge. Plan for discharge with ANNE drain in place, tentative plan for removal 1 week postoperatively. Elevated heart rate
into the 100s likely related to fluid shifts.
-- LFD
-- Pain control: Tylenol, IV Dilaudid PRN
-- HLIV
-- Abx: Zosyn, while in hospital
-- Home meds, monitor HR and if continued issues after home Metoprolol this AM consult Cardiology
-- DVT: Lovenox, will resume Eliquis today if Hb stable
-- GI: PPI
-- ANNE drain to remain in place for at least 1 week for monitoring of bile leak
-- Tentative plan for DC today
Subjective Data
-
Date of Service: September 01, 2024
No complaints. Pain well-controlled. No nausea or vomiting. Afebrile.
Objective Data
-
Intake and Output
08/31/24 09/01/24 09/02/24
06:59 06:59 06:59
Intake Total 2009 700 / 700
Output Total 60 / 60 45 / 45 20 / 20
Balance 1950 / 1949 655 / 655 -20 / -20
Intake:
Oral fluids 960 / 960 600 / 600
IV fluids (Total) 950 / 950
Normosol 50 / 50
IV piggybacks 100 / 100 100 / 100
Output:
Drain Output (Total) 45 / 20 / 20
Right Middle Abdomen Darell- 45 20 / 20
Zapata A
Other:
How many times incontinent 1
SMALL amount urine
How many times incontinent 1
MODERATE amount urine
How many times incontinent 1 2
SATURATED amount urine
Vital Signs
Temp Pulse Resp BP Pulse Ox
97.5 F 86 18 141/76 95
09/01/24 08:00 09/01/24 08:14 09/01/24 08:00 09/01/24 08:14 09/01/24 08:00
Calcium 8.4 mg/dl (8.4-10.2) 08/31/24 04:47
Total Bilirubin 1.2 mg/dl (0.2-1.3) 08/31/24 04:47
AST 75 U/L (17-59) H 08/31/24 04:47
ALT 35 U/L (0-50) 08/31/24 04:47
Alkaline Phosphatase 90 U/L (38-126) 08/31/24 04:47
Total Protein 7.3 g/dl (6.3-8.2) 08/31/24 04:47
Albumin 3.0 g/dl (3.5-5.0) L 08/31/24 04:47
Physical Exam
-
Gen: NAD
Abd: soft, NT/ND, non-peritoneal, incision c/d/i - no erythema, ecchymosis or drainage, ANNE serosang, non-bilious
[2024-09-01 11:18] LABS: ALT (SGPT) 22 U/L (0-50); AST (SGOT) 85 U/L (17-59); Albumin 3.4 g/dl (3.5-5.0); Alkaline Phosphatase 93 U/L (38-126); Blood Urea Nitrogen 29 mg/dl (9-20); Calcium 8.9 mg/dl (8.4-10.2); Carbon Dioxide 26 mmol/L (22-30); Chloride 104 mmol/L (98-107); Estimated Creatinine Clearance 25 ml/min; Glucose 114 mg/dl (70-99); Potassium 4.7 mmol/L (3.5-5.1); Sodium 138 mmol/L (135-145); Total Bilirubin 1.3 mg/dl (0.2-1.3); Total Protein 7.9 g/dl (6.3-8.2); eGFR 33.93
[2024-09-01 11:20] LABS: Hematocrit 29.9 % (39.0-52.0); Hemoglobin 9.5 g/dL (13.0-18.0); Mean Corp Hgb Conc. 31.8 g/dL (33.0-37.0); Mean Corpuscular Volume 78.7 fL (80.0-94.0); Mean Platelet Volume 10.3 fL (7.4-10.4); Platelet Count 194 10^3/uL (130-400); Red Cell Dist. Width 22.8 % (11.5-14.5); White Blood Cell Count 6.9 10^3/uL (4.8-10.8)
[2024-09-01 11:47] VITALS: BP 148/91
[2024-09-01] MEDS: TYLENOL 650 MG PO (13:26)
[2024-09-01 15:47] VITALS: BP 125/72
--- NOTE | 2024-09-01 15:49 | W.DCSUMMARY ---
Discharge Summary
Discharge Data
Date of Admission: 08/30/24
Date of Discharge: 09/01/24
-
Pending Results: No
Hospital Course
Mr Gallagher is an 84 yo male with was maintained with a percutaneous cholecystectomy tube since May 2024 when he was admitted with a NSTEMI and acute calculous cholecystitis. He was provided with cardiac clearance to proceed with surgery and
tolerated the procedure well. Due to dense chronic inflammation of the gallbladder a laparoscopic subtotal cholecystectomy was preformed with ANNE drain left in place post operatively and on discharge. Diet was able to be advanced and well tolerated
post operatively. Some mild acute blood loss/hemodilutional anemia was noted initially, but repeat blood counts were stable. On telemetry monitoring, he was in atrial fibrillation (chronic) post operatively with some bradycardia noted initially
followed by an episode of tachycardia. His HR normalized prior to discharge and rate and rhythm were discussed with cardiology environmental compliance specialist with plan made for outpatient follow up with Dr. Thomas. Visiting nurses were arranged by case management with plan
for outapatient removal of the drain.
Discharge Plan
-
Patient Disposition: Home (Routine Discharge)
Discharge Diagnosis/Procedures: Laparoscopic subtotal cholecystectomy
Condition: Good
Diet: Low Fat
Activity: No strenuous activity
Additional Activity: Do not lift over 15 lbs for the next 2-3 weeks
Bathing Restrictions: OK to Shower
Other Services: [facility]
Wound Care: Allow the glue to flake off your incisions on its own over the next 2-3 weeks. Avoid scrubbing or picking off the glue. Do not soak in a pool or tub for the next 2 weeks.
You will be sent home with a drain. Empty it 1-2 times a day. If the drainage turns dark brown or green please notify your surgeon.
Activity Restrictions/Additional Instructions:
Call for fevers (>100.5), nausea or vomiting, worsening abdominal pain, yellowing of the eyes or skin or green color of your drain
Instructions: How to care for a closed suction drain
Referrals:
Ck Rhoades MD [Active] - in one week
Prescriptions:
New
acetaminophen [acetaminophen] 325 mg tablet
650 mg PO Q4HPRN PRN (Reason: mild pain) Qty: 1 0RF
tramadol 50 mg tablet
25 - 50 mg PO Q6HPRN PRN (Reason: severe pain/breakthrough pain) Qty: 8 0RF
Continued
atorvastatin 40 mg Tablet
40 mg PO QPM Qty: 30 0RF
aspirin 81 mg Tablet,Chewable
81 mg PO DAILY Qty: 30 0RF
furosemide 20 mg Tablet
20 mg PO DAILY Qty: 30 0RF
metoprolol succinate 25 mg Tablet Extended Release 24 Hr
25 mg PO DAILY Qty: 30 0RF
pantoprazole [Protonix] 20 mg tablet,delayed release (DR/EC)
20 mg PO DAILY Qty: 30 1RF
Eliquis 2.5 mg tablet
2.5 mg PO BID
Discontinued
amoxicillin-pot clavulanate 875-125 mg Tablet
1 tab PO BID
Discharge Orders:
Discharge Patient (As Directed); Ordered 09/01/24
Ordered By: Soniya Alfonso
Discharge Date and Time
Print Language: SPANISH
== END 2024-09-01 16:00 | disposition home health service (06) | DRG 418 ==
LOC: 2 SOUTH 15:53
PROVIDERS: ADMITTING PHYSICIAN Surgery
PROC: 0FT44ZZ Resection of Gallbladder, Percutaneous Endoscopic Approach (ICD-10-PCS; 2024-08-30)
PROC: 0DNU4ZZ Release Omentum, Percutaneous Endoscopic Approach (ICD-10-PCS; 2024-08-30)
DX: K81.1 Chronic cholecystitis (principal); D62 Acute posthemorrhagic anemia; I48.20 Chronic atrial fibrillation, unspecified; F02.80 Dementia in other diseases classified elsewhere, unspecified severity, without behavioral disturbance, psychotic disturbance, mood disturbance, and anxiety; G30.9 Alzheimer's disease, unspecified; I50.9 Heart failure, unspecified; K66.0 Peritoneal adhesions (postprocedural) (postinfection); N18.9 Chronic kidney disease, unspecified; I25.2 Old myocardial infarction; Z79.01 Long term (current) use of anticoagulants
CPT/HCPCS: 88304; 80053; 83735; 85027

== ENCOUNTER → 2024-09-06 13:34 | Outpatient (REF) | payer OTHER, SELFPAY ==
[2024-09-06 14:21] LABS: Hematocrit 29.1 % (39.0-52.0); Hemoglobin 9.2 g/dL (13.0-18.0); Mean Corp Hgb Conc. 31.6 g/dL (33.0-37.0); Mean Corpuscular Hgb 24.8 pg (27.0-31.0); Mean Corpuscular Volume 78.4 fL (80.0-94.0); Mean Platelet Volume 10.6 fL (7.4-10.4); Platelet Count 271 10^3/uL (130-400); Red Blood Cell Count 3.71 10^6/uL (4.70-6.10); Red Cell Dist. Width 24.5 % (11.5-14.5); White Blood Cell Count 7.6 10^3/uL (4.8-10.8)
[2024-09-06 15:20] LABS: Absolute Neutrophils -Man Diff 4.2 10^3/uL (1.4-6.5); Band Neutrophils 0 % (0-3); Lymphocytes 29 % (20-51); Monocytes 13 % (2-9); Myelocytes 2 % (-); Platelets Checked Yes; Segmented Neutrophils 56 % (42-75)
[2024-09-06 15:21] LABS: Normal RBC Morphology No; Nucleated Red Blood Cells 1 (-)
[2024-09-06 15:23] LABS: Anisocytosis 1+; Microcytosis 2+
[2024-09-06 15:24] LABS: Total Cells Counted 100
== END ==
LOC: REG 13:34
PROVIDERS: ATTENDING PHYSICIAN Surgery; FAMILY PHYSICIAN Family Medicine
DX: Z90.49 Acquired absence of other specified parts of digestive tract (principal); R53.83 Other fatigue; R06.02 Shortness of breath
CPT/HCPCS: 36415; 85025

== ENCOUNTER → 2024-09-06 13:43 | Outpatient (REF) | payer SELFPAY ==
[2024-09-06 14:34] LABS: ALT (SGPT) 46 U/L (0-50); AST (SGOT) 111 U/L (17-59); Albumin 3.6 g/dl (3.5-5.0); Alkaline Phosphatase 105 U/L (38-126); Blood Urea Nitrogen 49 mg/dl (9-20); Calcium 8.8 mg/dl (8.4-10.2); Carbon Dioxide 22 mmol/L (22-30); Chloride 109 mmol/L (98-107); Glucose 150 mg/dl (70-99); Potassium 4.8 mmol/L (3.5-5.1); Sodium 145 mmol/L (135-145); Total Bilirubin 2.1 mg/dl (0.2-1.3); Total Protein 7.8 g/dl (6.3-8.2); eGFR 28.46
== END ==
LOC: REG 13:43
PROVIDERS: ATTENDING PHYSICIAN Surgery; FAMILY PHYSICIAN Family Medicine
DX: Z90.49 Acquired absence of other specified parts of digestive tract (principal); R53.83 Other fatigue; R06.02 Shortness of breath
CPT/HCPCS: 80053

== ENCOUNTER 2024-09-07 20:37 | Inpatient (IN) | payer MEDICARE, OTHER, SELFPAY ==
[2024-09-07] VITALS (12 sets, daily range): BP systolic 86–130; BP diastolic 53–82; BMI 25.0
[2024-09-07 16:14] LABS: % Basophils 0.3 % (0-2); % Immature Granulocytes 1.9 % (0-0.5); % Lymphocytes 16.8 % (20.5-51.1); Absolute Immature Granulocytes 0.2 10^3/uL (0-0.05); Absolute Lymphocytes 1.3 10^3/uL (1.2-3.4); Absolute Monocytes 1.6 10^3/uL (0.1-0.6); Absolute Neutrophils 4.8 10^3/uL (1.4-6.5); Hematocrit 26.6 % (39.0-52.0); Hemoglobin 8.5 g/dL (13.0-18.0); Mean Corpuscular Hgb 25.2 pg (27.0-31.0); Mean Corpuscular Volume 78.9 fL (80.0-94.0); Mean Platelet Volume 10.6 fL (7.4-10.4); Nucleated Red Blood Cells % 0.3 % (-); Platelet Count 310 10^3/uL (130-400); Red Blood Cell Count 3.37 10^6/uL (4.70-6.10); Red Cell Dist. Width 24.4 % (11.5-14.5); White Blood Cell Count 7.8 10^3/uL (4.8-10.8)
[2024-09-07 16:15] LABS: Lactic Acid 2.5 mmol/L (0.7-2.0)
[2024-09-07 16:19] LABS: COVID-19 Antigen Negative (Negative)
[2024-09-07 16:22] LABS: Blood Urea Nitrogen 64 mg/dl (9-20); Calcium 8.3 mg/dl (8.4-10.2); Carbon Dioxide 16 mmol/L (22-30); Chloride 111 mmol/L (98-107); Estimated Creatinine Clearance 22 ml/min; Glucose 157 mg/dl (70-99); Sodium 142 mmol/L (135-145); eGFR 25.63
[2024-09-07] MEDS: NSS 1000 IV ×2 (16:55→20:03)
[2024-09-07 17:40] LABS: ALT (SGPT) 429 U/L (0-50); Albumin 3.1 g/dl (3.5-5.0); Alkaline Phosphatase 100 U/L (38-126); Blood Urea Nitrogen 64 mg/dl (9-20); Calcium 8.1 mg/dl (8.4-10.2); Carbon Dioxide 19 mmol/L (22-30); Chloride 111 mmol/L (98-107); Estimated Creatinine Clearance 22 ml/min; Glucose 156 mg/dl (70-99); Potassium 5.1 mmol/L (3.5-5.1); Sodium 141 mmol/L (135-145); Total Protein 7.1 g/dl (6.3-8.2); eGFR 25.63
[2024-09-07 18:01] LABS: AST (SGOT) 1142 U/L (17-59); Lipase 1172 U/L (23-300)
--- NOTE | 2024-09-07 18:22 | ED.GENMED ---
History of Present Illness
General
Chief Complaint: Change Level of Consciousness
Source: family (Daughter. )
Exam Limitations: none
Time Seen by Provider: 09/07/24 16:14
Nursing documentation reviewed up to this point in time: agreed with
History of Present Illness
History of Present Illness:
Patient to ED for eval of weakness, lethargy. According to daughter, he was seen by general surgery yesterday and had ANNE drain removed. Today daughter reports abdominal distention. No fever/chills. No vomiting or diarrhea. Poor appetite. He
was admitted her in May for NSTEMI and cholecystitis requiring percutaneous cholecystostomy and then laparoscopic cholecystectomy. Has been home for the past week with care from who reports decrease in overall status over the past 24 hours.
Past History
Past History
ED Past Medical History: Arrthythmia (Atrial fib), CHF, GERD, HTN, MD, Valvular disease, Psychiatric (Anxiety, depression) and Other (Dementia Tuberculosis)
ED Past Surgical History: None
Social History
Tobacco: Former smoker
Alcohol: None
Drug: None
Personal:
Living: with family
Review of Systems
Review of Systems
Allergies reviewed?: Yes
All Other Systems: ROS reviewed and negative except as documented in HPI and ROS
Constitutional: Reports fatigue
EENT: Reports no symptoms
Respiratory: Reports no symptoms
Cardiac: Reports no symptoms
ABD/GI: Reports abdominal pain and other (abdominal distention)
: Reports no symptoms
Musculoskeletal: Reports no symptoms
Skin: Reports no symptoms
Neurological: Reports weakness
Psychiatric: Reports no symptoms
Phy Exam
General Physical Exam
General Presentation: moderate distress
General age: appears stated age
General Skin: warm
General Habitus: normal
General Mental: alert
Cardiovascular Exam
Cardiovascular Exam: regular rate/rhythm
Pulmonary Exam
Pulmonary Exam: lungs clear and no respiratory distress
Gastrointestinal Exam
Gastrointestinal Exam: normal bowel sounds, no cva tenderness and distended
Musculoskeletal Exam
Musculoskeletal Exam: neuro vasc intact
Skin Exam
Skin Exam: normal color and warm/dry
Psychiatric Exam
Psychiatric Exam: normal mood/affect
Course
Orders/Labs/Results
Orders:
Orders
09/07/24 Dinner
NPO
Allow oral meds: No
Allow clear liquids: No
09/07/24 15:33
Electrocardiogram (*1) Urgent
Reason for Study: Fatigue / Weakness
Cardiac Monitoring- Treatment ONCE
EKG- Treatment ONCE
IV Insert/Care/Rem.- Treatment PRN
09/07/24 15:38
Basic Metabolic Panel Urgent
Complete Blood Count/With Diff Urgent
Lactic Acid Q4H
Comment: ON ICE, CANCEL 2ND ORDER IF FIRST LACTIC ACID LEVEL <2
Troponin I Urgent
09/07/24 15:42
COVID-19 Antigen Urgent
Source: Nasal Swab
Influenza A+B Rapid Molecular Urgent
ALENA Source: Nasal Swab
Specimen Description:
09/07/24 16:48
CT Abd/pel Without Iv Or Oral Urgent
Comment:
Reason For Exam: abdominal distention. ANNE removed yesterday
09/07/24 16:49
0.9% Sodium Chloride 1000 ml [Nss] 1,000 ml IV BOLUS
09/07/24 17:02
CMP [Comprehensive Metabolic Panel] Urgent
Lipase Urgent
Comment: ADD ON
09/07/24 18:27
Morphine Sulfate 4 mg IV NOW STA
Ondansetron Injectable [Zofran] 4 mg IV NOW STA
09/07/24 19:15
0.9% Sodium Chloride 1000 ml [Nss] 1,000 ml IV 125 mls/hr
09/07/24 19:21
PTT Urgent
Prothrombin Time Urgent
09/07/24 19:57
Piperacillin/Tazo 2.25 Gram [Zosyn] 2.25 grams in 50 ml IV NOW
09/07/24 20:00
Lactic Acid Q4H
Comment: ON ICE, CANCEL 2ND ORDER IF FIRST LACTIC ACID LEVEL <2
Blood Culture Q30M
ALENA Source: Blood/Venous
Specimen Description:
Blood Culture Q30M
ALENA Source: Blood/Venous
Specimen Description:
09/07/24 20:13
Admit/Transfer Patient As Directed
Co-Sign Provider:
Level of Care: Inpatient admission
Assign to:: IMU- Intermediate Care
Physician / Group: hospitalist
Diagnosis: acute pancreatitis
Reason for Hospitalization: acute pancreatitis
Expected length of stay greater than two midnights?: Yes
ELOS- Estimated Length of Stay in days: 2
I certify the patient meets the requirements for IP care: Yes
PRN Pain Medication Management As Directed
May give lesser potent ordered pain med per pt: Yes
preference::
Protocol:: Medication orders for pain may be administered in a
manner that supports deferring to patient preference
when the pt is:
- Requesting an ordered lesser potent pain medication.
Least to most potent pain medications are defined
as: acetaminophen < NSAID < tramadol < opioids
(morphine, oxycodone, hydromorphone).
- Requesting a lesser dose of the same medication IF
ORDERED.
- Requesting a less intrusive route of administration
if both routes are prescribed by the provider (PO <
IV).
09/07/24 20:14
Code Status As Directed
Resuscitation Status: Do not resuscitate
Reached after discussion with pt or family/Healthcare POA: Yes
Based on pt advanced directive or healthcare POA form: Yes
09/07/24 20:15
DNR Bracelet Application ONCE
09/07/24 20:21
Heparin Protocol- PTT Orders As Directed
PTT per Heparin protocol: -Obtain CBC and baseline PTT - if not already collected.
-Obtain PTT 6 hours from start of infusion. Then, every 6 hours until 2 consecutive
PTT's are therapeutic. Then, PTT Daily.
-With each rate change, obtain PTT every 6 hours until 2 consecutive PTT's are
therapeutic. Then, PTT Daily.
Notify MD As Directed
Notify physician if: PTT is greater than or equal to 200.
09/07/24 20:30
Heparin 96871 Units/250 ml 25,000 units in 250 ml IV PER PROTOCOL
Weight to be used for heparin protocol in kilograms (kg):: 76.8
Protocol:: Cardiac Tx/Acute Coronary
PTT Goal Range to be used:: PTT 73 to 111 seconds
Order type:: Initial
INITIAL Infusion Dose (UNITS/KG/hr) & then follow protocol:: 12 units/kg/hr
Infusion Dose in UNITS/hr & then follow protocol (UNITS/hr):: 900
INFUSION RATE in mL/hr & then follow protocol (mL/hr):: 9
PTT less than or equal to 64 seconds:: Increase rate by 200 units/hr (+ 2 mL/hr)
PTT 64.1 to 72.9 seconds:: Increase rate by 100 units/hr (+ 1 mL/hr)
PTT 73 to 111 seconds:: Target Range. No change in rate.
PTT 111.1 to 130.9 seconds:: Decrease rate by 100 units/hr (- 1 mL/hr)
PTT 131 to 199.9 seconds:: HOLD for 1 hr. Then decrease rate by 200 units/hr (- 2 mL/hr)
PTT greater than or equal to 200 seconds:: HOLD for 2 hrs & Notify Provider. Then decrease by 200 units/hr (-
2 mL/hr)
Lab follow-up:: Each change, PTT q6h until 2 consecutive are therapeutic. Then PTT
daily.
09/07/24 22:33
Acetaminophen [Tylenol/Feverall] 650 mg RECTAL Q4HPRN PRN
Acetaminophen [Tylenol] 650 mg PO Q4HPRN PRN
Lactated Ringers [Lr] 1,000 ml IV 125 mls/hr
Ondansetron Injectable [Zofran] 4 mg IV Q6HPRN PRN
09/07/24 22:33
GASTROINTESTINAL CONSULT Routine
Consulting Provider: Germán Camacho
Was physician already notified: Yes
SURGICAL CONSULT Routine
Consulting Provider: James Ponce
Was physician already notified: Yes
VTE Contraindication Routine
VTE Mechanical Device Contraindication: Medical Contraindication
Pharmocologic Contraindication: Medical Contraindication
Urinalysis Reflex To Culture Urgent
Heparin Protocol- PTT Orders As Directed
PTT per Heparin protocol: -Obtain CBC and baseline PTT - if not already collected.
-Obtain PTT 6 hours from start of infusion. Then, every 6 hours until 2 consecutive
PTT's are therapeutic. Then, PTT Daily.
-With each rate change, obtain PTT every 6 hours until 2 consecutive PTT's are
therapeutic. Then, PTT Daily.
Activity As Directed
Activity Level: With Assistance
Intake/ Output As Directed
Frequency: Per unit guidelines
Notify MD As Directed
Notify physician if: PTT is greater than or equal to 200.
Vital Signs As Directed
Frequency: Per unit guidelines
O2 Therapy [RESP] Routine
Nasal Cannula Liter Flow: 2 LPM
Titrate/Wean O2 to maintain O2 sat greater than (%): 93
09/08/24 02:00
Morphine Sulfate 2 mg IV Q4H
Piperacillin/Tazo 3.375 Gram [Zosyn] 3.375 gram in 50 ml IV Q6H
09/08/24 03:20
Complete Blood Count/No Diff IN AM
Comprehensive Metabolic Panel IN AM
09/08/24 08:00
Pantoprazole [Protonix IV] 40 mg IV DAILY
09/11/24 06:00
Complete Blood Count/No Diff Q2D
Comment: Notify MD if platelet count is <130,000 or decreases by 50% from baseline
Complete Blood Count/No Diff Q2D
Comment: notify provider: Platelet count < 130,000 or decrease by 50% from baseline
09/13/24 06:00
Complete Blood Count/No Diff Q2D
Comment: Notify MD if platelet count is <130,000 or decreases by 50% from baseline
Complete Blood Count/No Diff Q2D
Comment: notify provider: Platelet count < 130,000 or decrease by 50% from baseline
09/15/24 06:00
Complete Blood Count/No Diff Q2D
Comment: Notify MD if platelet count is <130,000 or decreases by 50% from baseline
Complete Blood Count/No Diff Q2D
Comment: notify provider: Platelet count < 130,000 or decrease by 50% from baseline
09/17/24 06:00
Complete Blood Count/No Diff Q2D
Comment: Notify MD if platelet count is <130,000 or decreases by 50% from baseline
Complete Blood Count/No Diff Q2D
Comment: notify provider: Platelet count < 130,000 or decrease by 50% from baseline
09/19/24 06:00
Complete Blood Count/No Diff Q2D
Comment: Notify MD if platelet count is <130,000 or decreases by 50% from baseline
Complete Blood Count/No Diff Q2D
Comment: notify provider: Platelet count < 130,000 or decrease by 50% from baseline
09/21/24 06:00
Complete Blood Count/No Diff Q2D
Comment: Notify MD if platelet count is <130,000 or decreases by 50% from baseline
Complete Blood Count/No Diff Q2D
Comment: notify provider: Platelet count < 130,000 or decrease by 50% from baseline
09/23/24 06:00
Complete Blood Count/No Diff Q2D
Comment: Notify MD if platelet count is <130,000 or decreases by 50% from baseline
Complete Blood Count/No Diff Q2D
Comment: notify provider: Platelet count < 130,000 or decrease by 50% from baseline
Abnormal Lab Results
09/07/24 09/07/24 09/07/24
15:38 17:02 19:21
RBC 3.37 L 10^6/uL
(4.70-6.10)
Hgb 8.5 L g/dL
(13.0-18.0)
Hct 26.6 L %
(39.0-52.0)
MCV 78.9 L fL
(80.0-94.0)
MCH 25.2 L pg
(27.0-31.0)
MCHC 32.0 L g/dL
(33.0-37.0)
RDW 24.4 H %
(11.5-14.5)
MPV 10.6 H fL
(7.4-10.4)
Abs Immat Gran (auto) 0.2 H 10^3/uL
(0-0.05)
Absolute Monos (auto) 1.6 H 10^3/uL
(0.1-0.6)
Immature Gran % 1.9 H %
(0-0.5)
Lymphocytes % 16.8 L %
(20.5-51.1)
Monocytes % 20.0 H %
(1.7-9.3)
PT 23.4 H Sec
(11.4-14.6)
Chloride 111 H mmol/L 111 H mmol/L
(98-107) (98-107)
Carbon Dioxide 16 L mmol/L 19 L mmol/L
(22-30) (22-30)
BUN 64 H mg/dl 64 H mg/dl
(9-20) (9-20)
Creatinine 2.4 H mg/dL 2.4 H mg/dL
(0.7-1.3) (0.7-1.3)
Glucose 157 H mg/dl 156 H mg/dl
(70-99) (70-99)
Lactic Acid 2.5 H mmol/L
(0.7-2.0)
Calcium 8.3 L mg/dl 8.1 L mg/dl
(8.4-10.2) (8.4-10.2)
Total Bilirubin 2.0 H mg/dl
(0.2-1.3)
AST 1142 H* U/L
(17-59)
ALT 429 H U/L
(0-50)
Troponin I 9.750 H* ng/ml
Albumin 3.1 L g/dl
(3.5-5.0)
Lipase 1172 H* U/L
(23-300)
09/07/24
20:00
RBC
Hgb
Hct
MCV
MCH
MCHC
RDW
MPV
Abs Immat Gran (auto)
Absolute Monos (auto)
Immature Gran %
Lymphocytes %
Monocytes %
PT
Chloride
Carbon Dioxide
BUN
Creatinine
Glucose
Lactic Acid 2.2 H mmol/L
(0.7-2.0)
Calcium
Total Bilirubin
AST
ALT
Troponin I
Albumin
Lipase
09/07/24 20:21
09/07/24 17:02
Vital Signs
Initial and Last Documented VS:
Initial Vital Signs
Pulse Resp
130 28
09/07/24 15:32 09/07/24 15:32
Last Documented Vital Signs
Temp Pulse Resp BP Pulse Ox
98.1 F 114 25 103/74 91
09/09/24 23:05 09/09/24 20:00 09/09/24 20:00 09/09/24 20:00 09/09/24 20:53
*Critical Care Note
Total Time (30-74mins, 75-104mins- exclusive of procedures): Not Applicable
ED Attending Note
-
Portions of this chart may have been created with voice recognition software.� Occasional wrong word or��sound alike� substitutions may have occurred due to the inherent limitations of voice recognition software.
Discharge Plan
Departure
Patient Disposition: Admit
Date of Disposition: 09/07/24
Time of Disposition: 18:28
Presentation/result/management discussed w/ accepting MD/DO: Hospitalist
Covid-19: Not Applicable
Discharge Problem:
Pancreatitis
Interventions
Interventions:
*Risk Screen - Suicide Last Done: 09/07/24 22:55
*General Assessment Last Done: 09/07/24 15:36
*Neglect/Abuse Screening Last Done: 09/07/24 15:36
ED- Fall Risk Assessment Last Done: 09/07/24 15:40
*ED COVID-19 Vaccine History Last Done: 09/07/24 15:36
*Nursing Disposition Last Done: 09/07/24 22:21
ED- Cardiac Assessment Last Done: 09/07/24 15:40
ED- Neurological Assessment Last Done: 09/07/24 15:40
ED-Psychological Assessment Last Done: 09/07/24 16:52
ED- Pulmonary Assessment Last Done: 09/07/24 15:41
Discharge Date and Time
Discharge Date/Time: 09/07/24 22:22
[2024-09-07] MEDS: ZOFRAN 4 MG IV (18:30)
[2024-09-07] MEDS: MORPHINE SULFATE 4 MG IV (18:30)
--- NOTE | 2024-09-07 19:40 | HPS.HSE ---
Family Physician
-
Family Physician: Manpreet Shaw
Chief Complaint
-
Weakness
History of Present Illness
He is a 84-year-old with past medical history significant for obstructive CAD with past and elevated troponin, permanent atrial fibrillation on Eliquis, chronic cholecystitis who was initially treated with percutaneous cholecystostomy drainage and
is recently status post laparoscopic cholecystectomy presenting to the emergency department with acute episode of weakness and lethargy listlessness and tachypnea after ANNE drain removal yesterday.
Patient unable to provide any history. Family provided history. Did not at that he seemed to have gotten worse after his ANNE drain removal yesterday. Labs was done by surgery and he was noted to have abnormal labs. Family reported that he became
very weak today. Unable to transfer with assistance. No appetite and not able to tolerate any p.o. Patient was not responding appropriately as well. He complained of pain in the right upper quadrant. Family found him diaphoretic. There was no
nausea or vomiting.
In the ED blood pressure was initially 120/80 with a pulse of 126 irregular, he was satting 97%. Temperature was 98. ECG shows atrial fibrillation at a rate of 123. His troponin was 9.7. Labs notable for a normal white count hemoglobin of 8.5
and platelet of 310. Electrolytes were mostly unremarkable with his baseline BUN/creatinine. Lipase was elevated at 1172, AST 1142 and ALT 429. Alk phos was 100.
The CT of the abdomen and pelvis without IV or oral contrast showed 'Status post cholecystectomy. In the gallbladder fossa, there is soft tissue thickening surrounding a focus of gas. Could represent surgical hemostasis material in the proper
clinical setting. Soft tissue attenuation could represent postsurgical inflammatory changes. The possibility of a developing abscess cannot be entirely excluded. Clinical correlation recommended as well as consideration to close imaging follow-up.
Otherwise, no free intraperitoneal air or abdominal ascites.
Small bilateral pleural effusions and adjacent compressive atelectasis.
Questionable 1.3 cm pancreatic tail mass versus artifact related to mild respiratory motion and volume averaging. Follow-up nonemergent MRI may be considered.'
Medical History
Past Medical History
Past Medical History: Reports Arrhythmia (Pulmonary atrial fibrillation) and CAD
Past Surgical History: Reports Cholecystectomy
Social History
Tobacco: Non-smoker
Alcohol: None
Living: With Family
Family History
Family History: Not pertinent
Allergies / Home Medications
Allergies reflects when Allergies were last updated in [facility].
Home Medications with original date entered in [facility]
Allergy/Medication List:
Allergies
Allergy/AdvReac Type Severity Reaction Status Date / Time
No Known Allergies Allergy Verified 08/28/24 11:29
Home Medications
aspirin 81 mg chewable tablet 81 mg PO DAILY #30 tabs 06/15/24
atorvastatin 40 mg tablet 40 mg PO QPM #30 tabs 06/15/24
furosemide 20 mg tablet 20 mg PO DAILY #30 tabs 06/15/24
metoprolol succinate 25 mg tablet,extended release 24 hr 25 mg PO DAILY #30 tabs 06/15/24
pantoprazole 20 mg tablet,delayed release (Protonix) 20 mg PO DAILY #30 tabs 06/15/24
acetaminophen 325 mg tablet 650 mg (2 x 325 mg) PO Q4HPRN PRN mild pain #1 tab 09/01/24
apixaban 2.5 mg tablet (Eliquis) 2.5 mg PO BID Blood Clot Prevention/Tx 09/01/24
tramadol 50 mg tablet 25 - 50 mg (0.5 - 1 x 50 mg) PO Q6HPRN PRN severe pain/breakthrough pain #8 tabs 09/01/24
colchicine 0.6 mg tablet 0.6 mg PO HSPRN PRN gout 09/07/24
Review of Systems
-
Unable to obtain full review of systems at this time due to: Acuity
Physical Exam
Vital Signs
Vital Signs
Pulse Resp BP Pulse Ox
126 39 119/82 97
09/07/24 18:30 09/07/24 18:30 09/07/24 18:14 09/07/24 18:30
Physical Exam
General: Appears Chronically Ill
HEENT: NormoCephalic, Anicteric, Atraumatic and PERRLA
Respiratory: Clear and Other (Tachypneic to 40)
Cardiac: S1/S2, Irregular Rhythm and Tachycardia
Breast: Deferred by me
GI: Soft
Genito-urinary: Deferred by me
Musculoskeletal: No Clubbing and No Cyanosis
Skin: Warm
Neuro: Other (patient awake, alert but poorly responsive. Not oriented. Can follow simple commands)
Hematologic/Lymphatic: No Lymphadenopathy
Psych: Calm
Laboratory Results
-
09/07/24 15:38
09/07/24 17:02
Laboratory Results
Lactic Acid 2.5 mmol/L (0.7-2.0) H 09/07/24 15:38
Total Bilirubin 2.0 mg/dl (0.2-1.3) H 09/07/24 17:02
AST 1142 U/L (17-59) H* 09/07/24 17:02
ALT 429 U/L (0-50) H 09/07/24 17:02
Alkaline Phosphatase 100 U/L (38-126) 09/07/24 17:02
Troponin I 9.750 ng/ml H* 09/07/24 15:38
Lipase 1172 U/L (23-300) H* 09/07/24 17:02
Data Reviewed
-
CT Scan: Report Reviewed by me
Medical Tests (Nuc Med, Echo, EKG etc): Image Personally Visualized and interpreted
Lab Data: Labs Reviewed by me
Old Records: Reviewed
Impression/Plan
-
IMPRESSION:
84-year-old with history of CAD, chronic elevated troponin, chronic cholecystitis status post lap mariah presenting to the emergency department after ANNE drain removal with complaint of right upper quadrant pain, fatigue, lethargy listlessness and
quite frankly delirium. Labs notable for marked elevation in lipase to over 1000, AST t0 1000 ALT 400. T. bili is only 2.0. Alk phos is normal at 100. Imaging with a noncontrasted CT shows status post cholecystectomy, there is soft tissue
thickening surrounding the focus of gas in the gallbladder fossa. This could represent surgical hemostasis material in the proper clinical setting. The possibility of a developing abscess cannot be entirely excluded. There is a questionable 1.3
cm pancreatic tail mass versus artifact. Certainly while the pancreatic tail mass could explain the elevated lipase, it will not elevated explain the elevated transaminases. Patient remains hemodynamically stable but quite tachypneic and basically
nonresponsive. Troponin chronically elevated at 9.7.
Discussed this case with surgery. No obvious fluid collection surgeon. No indication for IR procedure at this time. Possibility of cholangitis versus biliary leak. Discussed with GI. MRCP appropriate.
Had a long discussion with family. They are moving towards more comfort measures. No escalation of care. They are okay with IV fluids, antibiotics, anticoagulation to be continued. No pressors, no intubation and no CPR. No further invasive
measures but possibly ERCP if patient survives long enough for the MRCP. He has multiorgan failure with very poor prognosis.
PLAN:
1. Acute Transaminitis and pancreatitis - Currently unclear etiology w/ picture c/w acute cholangitis versus biliary leak. No obvious fluid collection to drain at this time. BP is soft and patient quite tachypneic.
- admit to imu
- blood cultures sent
- start zosyn 3.35 q 6
- trend lfts
- MRCP
- Gi consult
- Surgery consult
- NPO for now
- IV fluids ok, pain control standing and antiemetics
- goals of care is to keep him comfortable while treating what we can. No pressors.
2. Respiratory failure - Patient tachypneic and likely has respiratory alkalosis. Anticoagulated so onlikely new PE. No obvious consolidation in chest.
- abx as above
- oxygen to maintain sats
- since no intubation or bipap, no reason for blood gas evaluation
- chest xray
3. AFIB -
- no acute rate control
- heparin gtt for now
4. CAD - Trop 9. Down from prior and stable
- heparin gtt as above
Code status - DNR/DNI. No escalation
[2024-09-07 19:41] LABS: INR 2.07; PT 23.4 Sec (11.4-14.6)
[2024-09-07 19:42] LABS: APTT 32.2 Sec (23.4-35.0)
[2024-09-07] MEDS: ZOSYN 50 IV (20:06)
[2024-09-07 20:17] LABS: Lactic Acid 2.2 mmol/L (0.7-2.0)
[2024-09-07] MEDS: HEPARIN 25000 UNITS/250 ML IV (21:30)
[2024-09-07] MEDS: LR 1000 IV (22:49)
[2024-09-07] MEDS: MORPHINE SULFATE 1 MG IV (22:49)
--- NOTE | 2024-09-07 23:18 | PTCARENOTE ---
Received verbal report from Lou KIM. Patient transported via stretcher to bed without issue. Patient is [place] speaking and orientated to self. Afib on monitor. Patient is tachypneic and on 3L NC. Patient incontinent of bowl and bladder. stage 2
wound on scarum present on admission. LR running at 125 and heparin gtt running at 9 ml/hr. Patient resting in bed but overall does not look well. [employer] at bedside, orders placed, see MAR. assessment and vital signs as documented.
[2024-09-08] VITALS (14 sets, daily range): BP systolic 81–106; BP diastolic 58–75
[2024-09-08 00:17] LABS: Lactic Acid 1.8 mmol/L (0.7-2.0)
[2024-09-08] MEDS: ZOSYN 50 IV ×4 (01:46→19:58)
[2024-09-08] MEDS: MORPHINE SULFATE IV ×4 (01:55→18:39)
[2024-09-08 03:48] LABS: Hematocrit 24.4 % (39.0-52.0); Hemoglobin 7.7 g/dL (13.0-18.0); Mean Corp Hgb Conc. 31.6 g/dL (33.0-37.0); Mean Corpuscular Hgb 24.6 pg (27.0-31.0); Mean Platelet Volume 10.7 fL (7.4-10.4); Platelet Count 234 10^3/uL (130-400); Red Blood Cell Count 3.13 10^6/uL (4.70-6.10); White Blood Cell Count 8.4 10^3/uL (4.8-10.8)
[2024-09-08 03:57] LABS: APTT 48.7 Sec (23.4-35.0)
[2024-09-08 04:32] LABS: ALT (SGPT) 570 U/L (0-50); Albumin 3.1 g/dl (3.5-5.0); Alkaline Phosphatase 89 U/L (38-126); Blood Urea Nitrogen 71 mg/dl (9-20); Calcium 7.9 mg/dl (8.4-10.2); Carbon Dioxide 15 mmol/L (22-30); Chloride 113 mmol/L (98-107); Estimated Creatinine Clearance 20 ml/min; Glucose 117 mg/dl (70-99); Potassium 5.5 mmol/L (3.5-5.1); Sodium 143 mmol/L (135-145); Total Bilirubin 2.1 mg/dl (0.2-1.3); eGFR 23.29
[2024-09-08] MEDS: MORPHINE SULFATE 2 MG IV ×2 (05:05→21:01)
[2024-09-08 06:00] LABS: AST (SGOT) 1327 U/L (17-59)
[2024-09-08] MEDS: LR 1000 IV (08:55)
[2024-09-08] MEDS: NSS (PRESERVATIVE FREE) 10 ML IV (08:56)
[2024-09-08] MEDS: PROTONIX IV 40 MG IV (08:56)
--- NOTE | 2024-09-08 09:53 | CON.GI ---
Consultation
-
Date/Time Consultation Requested: 09/07/2024, 7:30 pm
Date/Time Consultation Performed: 09/08/2024, 10am
Requesting Provider: Dr. Wolfe
Performing Provider: Dr. Camacho
Reason for Consultation: elevated bili
Medical History
Chief Complaint / HPI
Chief Complaint: weakness, lethargy
History of Present Illness:
84-year-old male past medical history of atrial fibrillation on Eliquis, CAD with elevated troponin in the past, chronic cholecystitis initially treated with perc cholecystectomy drain (reviewing notes from May 2024, he had come in at that time
with acute cholecystitis in the setting of possible non-STEMI at that time) with recent cholecystectomy on August 30 and at that time was found to have dense chronic inflammation involving the entire gallbladder with large impacted stone impacted,
unable to safely identify the cystic duct necessitating subtotal cholecystectomy with rim of gallbladder remaining, all visible stones, debris and drain removed, remaining visible mucosa cauterized. Reviewing the intraoperative report does not look
like IOC done. On discharge, his bilirubin was 1.3 on September 01.
His family has brought him into the hospital because he has been lethargic and weak. He underwent a CT scan last night which showed soft tissue thickening surrounding a focus of gas, could represent surgical hemostasis in the proper clinical
setting. Soft tissue attenuation could represent postsurgical inflammatory changes. Cannot rule out developing abscess. No intraperitoneal air or ascites. Questionable pancreatic tail mass versus artifact. Recommend MRI outpatient. Mild
constipation. His labs showed a bilirubin of 2 yesterday, repeat 2.1, AST yesterday 1142, repeat today 1327, ALT 429 yesterday, repeat 570, alk phos 89, lipase 1172, creatinine 2.6 which is slightly higher than his baseline previously 1.8-2.2
during last hospitalization, potassium 5.5, bicarb 15. INR 2.07, PT 23.4, PTT 32.2. Patient was on Eliquis and started on heparin here, PTT on heparin 48.7. Trop 9.75. Hb 7.7.
Hospitalist reached out to me last night and did state that the patient was very ill-appearing. Reviewing his vitals today, he has remained afebrile, blood pressure as low as 81/60 last night, last admission systolic blood pressure was closer to
100-150, pulse tachycardic 100-1 16 reviewing last admission his heart rate was closer to 60-80.
Last night he was started on Zosyn and MRI was ordered. Official report of MRI is pending but I did discuss with Dr. Ponce who saw a stone in the common bile duct.
He is ill appearing on my exam, not conversive, short of breath, lethargic. No fever per daughter but 'shirt soaked'. Last Eliquis dose yesterday am.
Past Medical History
Past Medical History: Arrhythmias (a fib), CAD, CHF (EF 55% in 05/2024), HTN, Renal Failure (CKD) and Other (Alzheimer's Dementia, Depression, GERD, Gout)
Past Surgical History: Other (Cholecystostomy Tube Placement (06/12/24))
Social History
Tobacco: Non-Smoker
Alcohol: None
Drug: None
Family History
Family History: Reviewed & Not Pertinent
Allergies / Home Medications
Allergy/AdvReac Type Severity Reaction Status Date / Time
No Known Allergies Allergy Verified 08/28/24 11:29
�Medication �Instructions �Recorded
aspirin 81 mg chewable tablet 81 mg PO DAILY #30 tabs 06/15/24
atorvastatin 40 mg tablet 40 mg PO QPM #30 tabs 06/15/24
furosemide 20 mg tablet 20 mg PO DAILY #30 tabs 06/15/24
metoprolol succinate 25 mg 25 mg PO DAILY #30 tabs 06/15/24
tablet,extended release 24 hr
pantoprazole 20 mg tablet,delayed 20 mg PO DAILY #30 tabs 06/15/24
release (Protonix)
acetaminophen 325 mg tablet 650 mg (2 x 325 mg) PO Q4HPRN PRN 09/01/24
mild pain #1 tab
apixaban 2.5 mg tablet (Eliquis) 2.5 mg PO BID Blood Clot 09/01/24
Prevention/Tx
tramadol 50 mg tablet 25 - 50 mg (0.5 - 1 x 50 mg) PO 09/01/24
Q6HPRN PRN severe
pain/breakthrough pain #8 tabs
colchicine 0.6 mg tablet 0.6 mg PO HSPRN PRN gout 09/07/24
Review of Systems
-
Unable to obtain full review of systems at this time due to: Other (illness/dementia)
Vital Signs
Temp Pulse Resp BP Pulse Ox
97.2 F 105 27 106/73 98
09/08/24 02:53 09/08/24 08:27 09/08/24 08:27 09/08/24 08:27 09/08/24 08:27
Physical Exam
Exam
General: Other (ill appearing short of breath)
HEENT: Normocephalic
Respiratory: Clear
Cardiac: S1/S2
GI: Non Tender and Non Distended
Neuro: Other (aaox0)
Psych: Calm
Results
WBC 8.4 10^3/uL (4.8-10.8) 09/08/24 03:20
Hgb 7.7 g/dL (13.0-18.0) L 09/08/24 03:20
Hct 24.4 % (39.0-52.0) L 09/08/24 03:20
MCV 78.0 fL (80.0-94.0) L 09/08/24 03:20
Plt Count 234 10^3/uL (130-400) D 09/08/24 03:20
Absolute Neuts (auto) 4.8 10^3/uL (1.4-6.5) 09/07/24 15:38
PT 23.4 Sec (11.4-14.6) H 09/07/24 19:21
INR 2.07 09/07/24 19:21
APTT 48.7 Sec (23.4-35.0) H 09/08/24 03:20
Sodium 143 mmol/L (135-145) 09/08/24 03:20
Potassium 5.5 mmol/L (3.5-5.1) H 09/08/24 03:20
Chloride 113 mmol/L (98-107) H 09/08/24 03:20
Carbon Dioxide 15 mmol/L (22-30) L 09/08/24 03:20
BUN 71 mg/dl (9-20) H 09/08/24 03:20
Creatinine 2.6 mg/dL (0.7-1.3) H 09/08/24 03:20
Calcium 7.9 mg/dl (8.4-10.2) L 09/08/24 03:20
Total Bilirubin 2.1 mg/dl (0.2-1.3) H 09/08/24 03:20
AST 1327 U/L (17-59) H* 09/08/24 03:20
ALT 570 U/L (0-50) H* 09/08/24 03:20
Alkaline Phosphatase 89 U/L (38-126) 09/08/24 03:20
Lipase 1172 U/L (23-300) H* 09/07/24 17:02
Diagnostic Image Results:
Prior GI Procedures:
EGD:
Colonoscopy:
Assessment / Plan
-
84 yo M pmh NSTEMI 05/2024, a fib on Eliquis, acute mariah s/p perc mariah tube 05/2024, CCY 2/6 p/w lethargy and AMS found in shock cholangitis vs cardiogenic - elevated bili but normal AP (if biliary would expect this to be elevated), elevated
lipase/LFTs (could be from either type of shock), hypotensive, tachycardic, trop leak, stone on MRI per Dr. Kris ty.
I discussed with biliary team, appreciate their assistance. Given normal alk phos, this may not be biliary in etiology as the cause of his sepsis. Given troponin leak, history of recent non-STEMI recommend cardiology evaluation to ensure no
cardiogenic shock. Patient is hypotensive and tachycardia with respiratory issues but does not require intubation or pressors. Will plan for ERCP tentatively tomorrow at 10 AM pending cardiology evaluation. D/w daughter at bedside r/a/b she is
agreeable (risks inc but not limited to bleeding, infection, perf, anesthesia complications, pancreatitis). Discussed temporary reversal of DNR for procedure daughter agreeable. Last dose Eliquis yesterday AM, heparin gtt will be held 4am for
possible 10 am procedure tomorrow. Monitor INR, LFTs. Patient prognosis guarded being monitoring in IMU.
Continue Zosyn. Clear liquid today, NPO after midnight.
I have asked medical team to address potassium before procedure.
Extensive time coordination of care with surgery, hospitalist, nursing staff, biliary team, radiologist, anesthesia.
Total Time Spent with Patient (in minutes): 75
-
-
Thank you for consultation and allowing me to participate in the patient's care. Please call the authorization nurse GI physician during the after hours with any questions or concerns.
[2024-09-08 09:55] LABS: INR 1.97; PT 22.6 Sec (11.4-14.6)
--- NOTE | 2024-09-08 10:22 | W.PN.HOSP.TC ---
Today's Communication/Plan
-
Heparin drip. Chest x-ray. Cardiology eval
Assessment / Plan
Assessment / Plan
Physical exam:
General: Acutely ill
HEENT: Normocephalic, Atraumatic and Moist Mucous Membranes
Respiratory: Coarse crackles in the bases; Negative Wheezes, or Rhonchi
Cardiac: Irregular rate and rhythm, tachycardic, and S1/S2
GI: Soft, Nontender and Nondistended
Musculoskeletal: No Clubbing, No Cyanosis. Bilateral lower extremity edema
Neuro: Awake, Alert and disoriented, moves spontaneously all 4 extremities
Psych: Calm, limited judgment and insight
A/P:
Shock:
Unclear if cardiogenic versus distributive/septic shock
Continue IV antibiotics
Pain medications but cautiously due to hemodynamic
Check cortisol levels in a.m.
Will use pressors if needed
Acute diastolic congestive heart failure:
Stop IV fluid
Will use diuretics when blood pressure allows
Check chest x-ray stat
Check BNP
Check TSH in a.m.
Cardiology consult
Respiratory insufficiency:
Remains on 3 L of oxygen
Chest x-ray
Monitor respiratory status closely
Elevated troponin:
Significant elevated troponin although less than few weeks ago
Initial EKG with significant depression of ST-T changes in lateral leads
Will repeat troponin to follow-up trend
Will repeat EKG to compare
Heparin drip
Cardiology consult
Permanent atrial fibrillation with rapid ventricular response:
Continue heparin drip
Elevated LFTs:
Not entirely clear that is all related to biliary source since it could be also heart failure related and shock
GI on [id number] GI recommendation
Surgery consulted
Recent subtotal, fenestrating laparoscopic cholecystectomy on 08/30 for chronic cholecystitis
Choledocholithiasis:
See above
MRCP reviewed
GI on board-potentially ERCP
Metabolic acidosis:
IV bicarbonate 50 mg x 1 stat
Monitor acidosis closely
Hyperkalemia:
Lokelma 10 g p.o. stat
CKD stage IV:
Avoid nephrotoxic
Monitor renal function close
Anemia:
Mild drift down from baseline
Continue to monitor closely
Check anemia workup
DVT prophylaxis:
On heparin drip
CODE STATUS:
DNR
Prognosis guarded
Total Critical Care Time__65___ minutes. I was immediately available to the patient and staff. I personally examined, reviewed labs, diagnostic images/reports, interpretations, treatment plans, discussed patient care with other providers and
family or caregivers (if patient is unable to make decisions), entered orders as appropriate and documented the medical record.
Anticipated Discharge: > 48 hours
Subjective/Interval History
-
Date of Service: September 08, 2024
Patient alert but disoriented. Complains of right upper quadrant abdominal pain. Hypotensive and tachycardic. Afebrile
Objective Data
-
Labs:
Laboratory Results
09/07/24 09/08/24 09/08/24
20:21 03:20 10:00
WBC Cancelled 8.4
Hgb Cancelled 7.7 L
Hct Cancelled 24.4 L
Plt Count Cancelled 234 D
PT 22.6 H
INR 1.97
APTT 48.7 H Pending
Sodium 143
Potassium 5.5 H
Chloride 113 H
Carbon Dioxide 15 L
BUN 71 H
Creatinine 2.6 H
Glucose 117 H
Calcium 7.9 L
Total Bilirubin 2.1 H
AST 1327 H*
ALT 570 H*
Alkaline Phosphatase 89
Vital Signs:
Vital Signs
Temp Pulse Resp BP Pulse Ox
97.2 F 105 27 106/73 98
09/08/24 02:53 09/08/24 08:27 09/08/24 08:27 09/08/24 08:27 09/08/24 08:27
--- NOTE | 2024-09-08 11:05 | PTCARENOTE ---
pt refused 10am dose of morphine w/ daughter at bedside stating that he was not in pain.
[2024-09-08 11:12] LABS: APTT 41.8 Sec (23.4-35.0)
[2024-09-08] MEDS: LOKELMA 10 GRAM PO (11:57)
[2024-09-08] MEDS: MORPHINE SULFATE 1 MG IV (12:01)
[2024-09-08] MEDS: SODIUM BICARBONATE 50 MEQ IV (12:30)
--- NOTE | 2024-09-08 12:48 | CON.GS ---
Consultation
-
Date/Time Consultation Requested: 09/07/2024 9 PM
Date/Time Consultation Performed: 09/08/2024 9 AM
Requesting Provider: Hospitalist
Performing Provider: Dr. Ponce
Reason for Consultation: Elevated bilirubin
Medical History
-
Chief Complaint: Abdominal pain, malaise
History of Present Illness:
This is an 84-year-old male with a history significant for atrial fibrillation on Eliquis (last dose Tuesday), CAD, and chronic cholecystitis treated with percutaneous cholecystostomy drain in the setting of a possible NSTEMI back in
May now status post subtotal fenestrating cholecystectomy on August 30 and he was discharged in September 01 with a normal bilirubin and without a drain. However, over the past few days the patient has become more lethargic and weak prompting
his family to bring him in to be evaluated. He underwent a CT scan last night which showed soft tissue thickening surrounding focus of gas in the postsurgical bed but no obvious biloma or abscess. He then underwent an MRCP which upon my read
demonstrates choledocholithiasis. Of note his bilirubin is elevated to 2.1, he does have elevated LFTs as well as lipase concerning for pancreatitis in addition his INR is elevated as well as his other coagulation factors. His hemoglobin is 7.7.
He was hypotensive and tachycardic on arrival and remains critically ill in the ICU.
Past Medical History
Past Medical History: Other (A-fib on Eliquis, CAD)
Past Surgical History: Other ( laparoscopic subtotal fenestrating cholecystectomy on 08/30/2024)
Social History
Tobacco: Non-Smoker
Alcohol: None
Drug: None
Family History
Family History: Reviewed & Not Pertinent
Allergies / Home Medications
Allergy/AdvReac Type Severity Reaction Status Date / Time
No Known Allergies Allergy Verified 08/28/24 11:29
�Medication �Instructions �Recorded �Confirmed �Type
aspirin 81 mg chewable tablet 81 mg PO DAILY #30 tabs 06/15/24 09/07/24 Rx
atorvastatin 40 mg tablet 40 mg PO QPM #30 tabs 06/15/24 09/07/24 Rx
furosemide 20 mg tablet 20 mg PO DAILY #30 tabs 06/15/24 09/07/24 Rx
metoprolol succinate 25 mg 25 mg PO DAILY #30 tabs 06/15/24 09/07/24 Rx
tablet,extended release 24 hr
pantoprazole 20 mg tablet,delayed 20 mg PO DAILY #30 tabs 06/15/24 09/07/24 Rx
release (Protonix)
acetaminophen 325 mg tablet 650 mg (2 x 325 mg) PO Q4HPRN PRN 09/01/24 09/07/24 Rx
mild pain #1 tab
apixaban 2.5 mg tablet (Eliquis) 2.5 mg PO BID Blood Clot 09/01/24 09/07/24 History
Prevention/Tx
tramadol 50 mg tablet 25 - 50 mg (0.5 - 1 x 50 mg) PO 09/01/24 09/07/24 Rx
Q6HPRN PRN severe
pain/breakthrough pain #8 tabs
colchicine 0.6 mg tablet 0.6 mg PO HSPRN PRN gout 09/07/24 09/07/24 History
Review of Systems
-
All other systems: Negative unless noted
A 10 point review of systems was completed, and was negative except as per HPI.
Physical Exam
Vital Signs
Temp Pulse Resp BP Pulse Ox
96.6 F L 105 27 106/73 98
09/08/24 11:00 09/08/24 08:27 09/08/24 08:27 09/08/24 08:27 09/08/24 08:27
09/07/24 09/08/24 09/09/24
06:59 06:59 06:59
Actual Weight 76.8 kg
Body Mass Index (BMI) 25.0
Lab Results
09/08/24 03:20
09/08/24 03:20
WBC 8.4 10^3/uL (4.8-10.8) 09/08/24 03:20
Hgb 7.7 g/dL (13.0-18.0) L 09/08/24 03:20
Hct 24.4 % (39.0-52.0) L 09/08/24 03:20
Plt Count 234 10^3/uL (130-400) D 09/08/24 03:20
Abs Immat Gran (auto) 0.2 10^3/uL (0-0.05) H 09/07/24 15:38
Neutrophils % 61.0 % (42.2-75.2) 09/07/24 15:38
Physical Exam
General: Other (Looks lethargic)
HEENT: Normocephalic
Respiratory: Other (Somewhat labored breathing)
GI: Soft, Non Tender and Non Distended
Data Reviewed
-
CT Scan: Image Personally Visualized and interpreted, Report Reviewed by me, Discussed with Physician and Discussed with Family
MRI: Image Personally Visualized and interpreted, Report Reviewed by me, Discussed with Physician and Discussed with Family
Labs: Labs Reviewed by me, Discussed with Physician and Discussed with Family
Total Time Spent with Patient (in minutes): 40
Assessment / Plan
-
This is an 84-year-old male with history of A-fib on Eliquis last dose Tuesday, recent subtotal, fenestrating laparoscopic cholecystectomy on 08/30/2024 for chronic cholecystitis now with lethargy and malaise found to have elevated LFTs,
pancreatitis as well as choledocholithiasis.
GI consult for possible ERCP.
N.p.o., IV fluids, IV antibiotics.
Continue trending labs and replete electrolytes as necessary.
I did talk to his daughter in the room who expressed their desire to focus on interventions that would provide or improve quality of life which I think is reasonable. If his heart were to stop or they would prefer him to pass naturally and have no
heroic efforts made. Nevertheless, I do feel like he has a reversible cause for his current clinical situation and she is willing to reverse any DNR periprocedurally.
I do not anticipate any surgical needs but we will follow along peripherally.
--- NOTE | 2024-09-08 14:18 | CON.CAR ---
Consultation
Consultation Request
Date/Time Consultation Requested: 09/08/2024 at 11 AM
Date/Time Consultation Performed: 09/08/2024 at 2 PM
Requesting Provider: Dr. Pedro Anderson
Performing Provider: Gama Thomas MD
Reason for Consultation: Atrial fibrillation with rapid ventricular response
Medical History
-
Chief Complaint: Atrial fibrillation with rapid ventricular response
History of Present Illness:
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
proBNP 18,100. He required a cholecystostomy tube. Acute heart failure with improved EF and atrial fibrillation with rapid ventricular response were both successfully treated with medication adjustments. His troponin was elevated to 15.7. He was
briefly admitted in mid June with a cholecystostomy tube problem and discharge, and subsequently underwent cholecystectomy on August 30. He was discharged on September 01. He was readmitted September 07 with lethargy and tachypnea following
removal of a Darell-Zapata drain on the .. He had atrial fibrillation with a rapid ventricular response, troponin of 9.7, hemoglobin of 8.5, lipase 1172 and an AST of 1142. An abscess could not be excluded by CT scan of the abdomen, a
pancreatic tail mass was not excluded. His last dose of Eliquis was Tuesday. He is tentatively scheduled for ERCP with concerns for choledocholithiasis. He had been seen in our office in July 2024. His proBNP was 1950 at follow-up in
June. He was on aspirin and Eliquis.
Past Medical History
Past Medical History: Arrhythmias (Permanent atrial fibrillation), CAD (Non-ST segment elevation OR May 2024), CHF (History of cardiomyopathy, presumed nonischemic 2012, with recovery of EF to 55-60% 2023), CVA (History of bilateral stroke),
GERD, HTN, Renal Failure (CKD 3B/4), Psychiatric (Late onset Alzheimer's dementia) and Other (Gout)
Past Surgical History: Cholecystectomy (Laparoscopic August 2024)
Social History
Tobacco: Non-Smoker
Alcohol: None
Drug: None
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
Employment: Retired
Family History
Family History: Reviewed & Not Pertinent
Allergies / Home Medications
Allergy/AdvReac Type Severity Reaction Status Date / Time
No Known Allergies Allergy Verified 08/28/24 11:29
�Medication �Instructions �Recorded �Confirmed �Type
aspirin 81 mg chewable tablet 81 mg PO DAILY #30 tabs 06/15/24 09/07/24 Rx
atorvastatin 40 mg tablet 40 mg PO QPM #30 tabs 06/15/24 09/07/24 Rx
furosemide 20 mg tablet 20 mg PO DAILY #30 tabs 06/15/24 09/07/24 Rx
metoprolol succinate 25 mg 25 mg PO DAILY #30 tabs 06/15/24 09/07/24 Rx
tablet,extended release 24 hr
pantoprazole 20 mg tablet,delayed 20 mg PO DAILY #30 tabs 06/15/24 09/07/24 Rx
release (Protonix)
acetaminophen 325 mg tablet 650 mg (2 x 325 mg) PO Q4HPRN PRN 09/01/24 09/07/24 Rx
mild pain #1 tab
apixaban 2.5 mg tablet (Eliquis) 2.5 mg PO BID Blood Clot 09/01/24 09/07/24 History
Prevention/Tx
tramadol 50 mg tablet 25 - 50 mg (0.5 - 1 x 50 mg) PO 09/01/24 09/07/24 Rx
Q6HPRN PRN severe
pain/breakthrough pain #8 tabs
colchicine 0.6 mg tablet 0.6 mg PO HSPRN PRN gout 09/07/24 09/07/24 History
Review of Systems
-
Unable to obtain full review of systems at this time due to: Dementia
Physical Exam
Vital Signs
Temp Pulse Resp BP Pulse Ox
35.9 C L 115 25 95/70 99
09/08/24 11:00 09/08/24 12:00 09/08/24 12:00 09/08/24 12:00 09/08/24 12:00
Lab Results
09/08/24 03:20
09/08/24 03:20
Troponin I 9.750 ng/ml H* 09/07/24 15:38
Physical Exam
General: Pain (Appears uncomfortable, can understand Hungarian, nods appropriately to questions, at times says he is in pain, indicates right upper quadrant) and Other (Jaundiced)
HEENT: Normocephalic
Respiratory: Other (Relatively clear)
Cardiac: Irregular Rhythm (Rate around 100, JVD okay, no obvious murmurs)
GI: Soft and Tender (Probably with some right upper quadrant tenderness)
Musculoskeletal: No Edema
Neuro: Awake
Psych: Other (Indicates he is uncomfortable)
Impression / Plan
-
Impression:
Acute choledocholithiasis
Non-ST segment elevation OR, troponin 9.75
History of cardiomyopathy with improved EF
Episode of acute heart failure with improved EF May 2024, peak troponin 18,100
Recent cholecystectomy, now with acute choledocholithiasis and common bile duct by MRCP
Possible pancreatitis
Permanent atrial fibrillation
History of cardiomyopathy with improved EF
Alzheimer's dementia
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
Gout
History of bilateral strokes
Hypercholesterolemia
Hypertension
Anemia
Echocardiogram May 2024: EF 55-60%, mild LVH, normal RV, dilated left atrium, mild mitral regurgitation, mild aortic regurgitation, pulmonary artery systolic pressure 25-30 mmHg
Plan:
He presents acutely ill presumably related to choledocholithiasis and possible pancreatitis.
By my read of the chest x-ray he could also have a right lung pneumonia, radiology is reading as acute CHF which is possible. proBNP is pending.
Heart rate in permanent atrial fibrillation is modestly elevated, blood pressure is marginal but he is tolerating at present.
In addition he has a recurrent non-ST segment elevation OR. His troponin is less than it was in May, and LV function was normal. His ECG shows anterolateral ST segment depression which I suspect could represent circumflex distribution injury,
possibly related to an occluded and collateralized circumflex within adequate blood flow under severe hemodynamic stress. At this point, given his clinical situation our management should remain conservative. Invasive procedures, stress testing,
etc. will be avoided. However we will obtain a follow-up echo on Tuesday.
For now, will observe carefully. Okay to continue heparin, and if necessary proceed with ERCP. Eventually, once stable we will restart Eliquis.
For now, I will not administer amiodarone which would probably be the most appropriate agent if better rate control is needed.
For now, we will hold metoprolol given marginal blood pressure, though if blood pressure stabilizes I will start IV metoprolol. Add pressor support if needed.
Data Reviewed
-
EKG: Tracing Personally Visualized and interpreted (Atrial fibrillation with rapid ventricular response, prior inferior myocardial infarction with left axis deviation, diffuse anterolateral ST depression, ST depression was present but less prominent
May 2024 in July 2024)
Radiology: Image Personally Visualized and interpreted (Probable right pneumonia with elevated left hemidiaphragm, small left pleural effusion may be an element of vascular congestion)
Medical Tests (Nuc Med, Echo etc): Report Reviewed by me
Labs: Labs Reviewed by me (White count 8.4, hemoglobin 7.7, platelets 234, increased bands,BUN and creatinine are 71 and 2.6, creatinine had been 1.9 September 01, bicarbonate is 15, anion gap is 15potassium is 5.5, had been 5.1, troponin 9.75, proBNP
is pending, AST is 1327, ALT is 570, bilirubin is 2.1)
Old Records: Reviewed
Critical Care Time (in minutes): 60 minutes
[2024-09-08 15:17] LABS: Lactic Acid 2.1 mmol/L (0.7-2.0)
[2024-09-08 15:19] LABS: APTT 61.6 Sec (23.4-35.0)
[2024-09-08 15:39] LABS: NT-proBNP > 27000 pg/ml
--- NOTE | 2024-09-08 16:47 | W.PN.UPDATE ---
Update Note
Progress Note Update
I d/w cardiology Dr. Thomas.
MRI official read with stone. However, no white blood cell count, no right upper quadrant pain, no fever. Unclear if his hemodynamic instability is due to cardiogenic shock versus septic shock from cholangitis. Echo will be done tonight. We will
keep ERCP tentatively for 10 AM tomorrow but we will see what the echo shows and decide if we need to move forward urgently. Dr. Thomas mentioned he could have a pneumonia as well based on his review of the x-ray. BNP is higher than last time but
troponin is lower.
[2024-09-09] VITALS (12 sets, daily range): BP systolic 95–114; BP diastolic 59–79; BMI 23.9
--- NOTE | 2024-09-09 00:23 | PTCARENOTE ---
Assumed care of patient from previous shift. Patient on heparin gtt at 14 with orders to turn off gtt at 0400 for possible surgery in AM. Patient Afib on monitor. Tachypneic and on 3L NC. Patient remains incontinent. assessment and vital signs as
documented. Patient resting in bed with call shook in reach.
[2024-09-09] MEDS: ZOSYN 50 IV ×4 (01:51→19:55)
[2024-09-09] MEDS: MORPHINE SULFATE 2 MG IV ×3 (01:51→13:23)
[2024-09-09 02:43] LABS: APTT 117.3 Sec (23.4-35.0)
--- NOTE | 2024-09-09 04:10 | PTCARENOTE ---
Heparin gtt on hold per order.
[2024-09-09 05:31] LABS: INR 1.76; PT 20.7 Sec (11.4-14.6)
[2024-09-09 05:40] LABS: Lactic Acid 1.9 mmol/L (0.7-2.0)
[2024-09-09 05:53] LABS: Hematocrit 25.6 % (39.0-52.0); Hemoglobin 7.8 g/dL (13.0-18.0); Mean Corp Hgb Conc. 30.5 g/dL (33.0-37.0); Mean Corpuscular Hgb 24.5 pg (27.0-31.0); Mean Corpuscular Volume 80.3 fL (80.0-94.0); Mean Platelet Volume 10.8 fL (7.4-10.4); Platelet Count 203 10^3/uL (130-400); Red Blood Cell Count 3.19 10^6/uL (4.70-6.10); Red Cell Dist. Width 23.9 % (11.5-14.5); White Blood Cell Count 8.1 10^3/uL (4.8-10.8)
[2024-09-09 06:36] LABS: Cortisol, Random 31.7 ug/dl; TSH Reflex To Free T4 2.17 uIU/ml (0.47-4.68)
[2024-09-09 06:51] LABS: Absolute Neutrophils -Man Diff 4.8 10^3/uL (1.4-6.5); Band Neutrophils 3 % (0-3); Lymphocytes 19 % (20-51); Metamyelocytes 1 % (-); Myelocytes 3 % (-); Segmented Neutrophils 57 % (42-75)
[2024-09-09 06:52] LABS: Monocytes 17 % (2-9); Platelets Checked Yes
[2024-09-09 06:53] LABS: Anisocytosis 1+; Hypochromasia Slight; Normal RBC Morphology No; Ovalocytes Slight; Total Cells Counted 100
[2024-09-09 06:55] LABS: Vitamin B12 994 pg/ml (239-931)
[2024-09-09 07:28] LABS: ALT (SGPT) 529 U/L (0-50); Albumin 2.9 g/dl (3.5-5.0); Alkaline Phosphatase 99 U/L (38-126); Blood Urea Nitrogen 76 mg/dl (9-20); Calcium 7.2 mg/dl (8.4-10.2); Carbon Dioxide 15 mmol/L (22-30); Chloride 116 mmol/L (98-107); Estimated Creatinine Clearance 18 ml/min; Glucose 82 mg/dl (70-99); Iron 44 ug/dl (49-181); Lipase 854 U/L (23-300); Magnesium 2.3 mg/dl (1.6-2.3); Percent Saturation 26 % (20-50); Phosphorus 6.5 mg/dl (2.5-4.5); Potassium 4.6 mmol/L (3.5-5.1); Sodium 146 mmol/L (135-145); Total Bilirubin 2.2 mg/dl (0.2-1.3); Total Iron Binding Capacity 168 ug/dl (261-462); Total Protein 6.2 g/dl (6.3-8.2); eGFR 19.61
--- NOTE | 2024-09-09 07:56 | W.PN.CARDCBS ---
Today's Communication / Plan
-
Prognosis very guarded given LV dysfunction A-fib, presumed pulmonary edema, RAFAL on CKD
Patient is DNR, conservative measures only
No ERCP
IV Lasix x 80 mg
Discussed with daughter
Impression / Plan
-
Impression:
Acute choledocholithiasis
Non-ST segment elevation OH, troponin 9.75
History of cardiomyopathy with improved EF
Episode of acute heart failure with improved EF May 2024, peak troponin 18,100
Recent cholecystectomy, now with acute choledocholithiasis and common bile duct by MRCP
Possible pancreatitis
Permanent atrial fibrillation
History of cardiomyopathy with improved EF
Alzheimer's dementia
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
Gout
History of bilateral strokes
Hypercholesterolemia
Hypertension
Anemia
Echocardiogram May 2024: EF 55-60%, mild LVH, normal RV, dilated left atrium, mild mitral regurgitation, mild aortic regurgitation, pulmonary artery systolic pressure 25-30 mmHg
Echocardiogram 09/08/2024: Severe LV dysfunction, EF 25-30%, global hypokinesis, apical septal, apical anterior, apical lateral and apical akinesis, anterior wall, basal and mid septal segments severely hypokinetic, dilated RV with hypokinesis,
dilated left atrium and right atrium, thickened mitral leaflets, MAC, mild to moderate MR, aortic sclerosis with mild aortic regurgitation, pulmonary artery systolic pressure 55 mmHg
Plan:
At this point, major issue is presumed CHF/pulmonary edema/non-STEMI with new severe LV dysfunction. Anion gap is 15 and bicarb is also 15, presumably with incipient shock that may be more cardiogenic than sepsis. Unclear whether current cardiac
status was a primary event or triggered by GI issues.
In either event, strategy is conservative and prognosis is very guarded. Currently he is not a candidate for cardiac or GI procedures.
Daughter is aware and comfortable. She does not want to put her dad through a lot. He is a DNR.
Heart rate and blood pressure are marginal but acceptable. Given chest x-ray findings and proBNP, will give IV furosemide 80 mg x 1 despite RAFAL on CKD.
He is on Zosyn.
His hemoglobin is 7.8 on IV heparin. Heparin is for NSTEMI and permanent atrial fibrillation. Hemoglobin is currently stable but if it drops further, I would stop heparin. I have ordered a hemoglobin for this afternoon.
For now he is too tenuous to add a beta-campos.
We will continue to follow. Prognosis very guarded. Discussed with GI and daughter
Progress Note - Relocation Manager
Subjective
Date of Service: September 09, 2024:
Daughter and son-in-law at bedside, he has abdominal pain, may also have chest discomfort
Medications: IV heparin, pantoprazole, Zosyn, morphine, Zofran
100/72, pulse 105, respiratory rate 19, afebrile, weight is 73.5 kg, if accurate down 2.7 kg,, sats are 99% on 2 L, abdomen is tender, lungs are surprisingly clear, JVD not obviously elevated, soft systolic murmur, irregular
white count 8.1, hemoglobin 7.8, stable from yesterday, down from 9.2 on September 06, potassium 4.6, sodium 146, creatinine up to 3.0, BUN 76, creatinine was 2.6 on the and 2.2 on September 06 1.9 on the , proBNP is greater than 27,000,
troponin 7.99, peak was 9.75. ALT is 529,, had been 570 bilirubin is 2.2, alk phos is 99, TSH is 2.17, cortisol was 31.7
Chest x-ray with probable progression of pulmonary edema, possibly with pneumonia as well
ECG is pending
Objective
Labs:
09/09/24 05:12
09/09/24 05:12
Labs
Hgb 7.8 g/dL (13.0-18.0) L 09/09/24 05:12
Hct 25.6 % (39.0-52.0) L 09/09/24 05:12
Plt Count 203 10^3/uL (130-400) 02/16/25 05:12
PT 20.7 Sec (11.4-14.6) H 09/09/24 05:12
INR 1.76 09/09/24 05:12
APTT 117.3 Sec (23.4-35.0) H 09/09/24 02:08
Sodium 146 mmol/L (135-145) H 09/09/24 05:12
Potassium 4.6 mmol/L (3.5-5.1) 09/09/24 05:12
BUN 76 mg/dl (9-20) H 09/09/24 05:12
Creatinine 3.0 mg/dL (0.7-1.3) H 09/09/24 05:12
Glucose 82 mg/dl (70-99) 09/09/24 05:12
Troponins
09/07/24 09/08/24 09/09/24
15:38 14:57 05:12
Troponin I 9.750 H* 9.270 H* 7.990 H*
Vital Signs and I&O:
Vital Signs
Temp Pulse Resp BP Pulse Ox
36.7 C 105 19 100/72 98
09/09/24 07:23 09/09/24 06:00 09/09/24 06:00 09/09/24 06:00 09/09/24 06:00
Vital Signs
Temp Pulse Resp BP Pulse Ox
36.7 C 105 19 100/72 98
09/09/24 07:23 09/09/24 06:00 09/09/24 06:00 09/09/24 06:00 09/09/24 06:00
Intake & Output
09/06/24 09/07/24 09/08/24 09/09/24
07:59 07:59 07:59 07:59
Intake Total 715 / 715
Balance 715 / 715
Physical Exam
Physical Exam
See above
[2024-09-09] MEDS: PROTONIX IV 40 MG IV (08:05)
[2024-09-09] MEDS: NSS (PRESERVATIVE FREE) 10 ML IV (08:05)
[2024-09-09 08:11] LABS: AST (SGOT) 833 U/L (17-59)
--- NOTE | 2024-09-09 08:53 | W.PN.HOSP.TC ---
Today's Communication/Plan
-
Chest x-ray. CT scan of the chest. Cardiology reeval.
Assessment / Plan
Assessment / Plan
Physical exam:
General: Acutely ill
HEENT: Normocephalic, Atraumatic and Moist Mucous Membranes
Respiratory: Coarse crackles in the bases; Negative Wheezes, or Rhonchi
Cardiac: Irregular rate and rhythm, tachycardic, and S1/S2
GI: Soft, Nontender and Nondistended
Musculoskeletal: No Clubbing, No Cyanosis. Bilateral lower extremity edema
Neuro: Awake, Alert and disoriented, moves spontaneously all 4 extremities
Psych: Calm, limited judgment and insight
Echocardiogram:
CONCLUSIONS
1. Severe left ventricular dysfunction with multiple regional wall motion
abnormalities as described below, EF 25-30%
2. Thickened mitral leaflets, mitral annular calcification, mild to moderate
mitral regurgitation and dilated left atrium
3. Aortic sclerosis with mild aortic regurgitation
4. Dilated right heart with right ventricular hypokinesis, mild tricuspid
regurgitation and pulmonary artery systolic pressure 55 mmHg
The ejection fraction was 55-60% in May 2024. In 2012 the ejection
fraction was 35-40%. The pulmonary artery pressure was normal in May
2023.
A/P:
Cardiogenic shock:
Likely cardiogenic shock. Cannot rule out septic
Continue IV antibiotics
Echocardiogram reviewed
Cortisol levels appropriate
Will use pressors and or inotropic if indicated
Cardiology on board-discussed with cardiology today
Discussed with daughter at length today on 09/09 and understands poor prognosis. Will try conservative measures over the next 24 hours but if continues to deteriorate will change goals to comfort care/hospice and family aware and agreeable with that
approach at the moment.
Acute systolic congestive heart failure:
Off IV fluid
IV Lasix 80 mg IV x 1
Will use more diuretics if and when blood pressure allows
Seen and reviewed chest x-ray yesterday and consistent with heart failure. Cardiology question if this is pneumonia but I doubt it and it is covered with antibiotics regardless. Will do a CT scan of the chest without contrast today.
Also repeat chest x-ray today
Elevated BNP
Normal TSH
Cardiology on board
Acute hypoxic respiratory failure:
Remains on 3 L of oxygen
Repeat chest x-ray today
Monitor respiratory status closely
RAFAL:
Likely related to cardiogenic shock and hypoperfusion to the kidneys
Not a candidate for hemodialysis
Elevated troponin:
Significant elevated troponin although less than few months ago
Initial EKG with significant depression of ST-T changes in lateral leads and follow-up less depressed as present in the past.
Follow-up troponin
Continue heparin drip
Permanent atrial fibrillation with rapid ventricular response:
Continue heparin drip
Unable to use rate control due to hemodynamic instability
Elevated LFTs due to shock liver and less likely a component of choledocholithiasis; Doubt Cholangitis:
Not entirely clear that is all related to biliary source since it could be also heart failure related and shock.
GI on [id number] GI recommendation
Surgery consulted
Recent subtotal, fenestrating laparoscopic cholecystectomy on 08/30 for chronic cholecystitis
Initially GI thinking about ERCP but given cardiac situation, understandably holding off for now.
Choledocholithiasis:
See above
MRCP reviewed
GI on board-Initially GI thinking about ERCP but given cardiac situation, understandably holding off for now.
Metabolic acidosis:
IV bicarbonate 50 mg x 1 stat given yesterday.
Acidosis same.
Hyperkalemia:
Lokelma 10 g p.o. stat yesterday and potassium better today
CKD stage IV:
Avoid nephrotoxic
Monitor renal function
Anemia:
Mild drift down from baseline
Continue to monitor
Check anemia workup
DVT prophylaxis:
On heparin drip
CODE STATUS:
DNR
Prognosis guarded
Total Critical Care Time__65___ minutes. I was immediately available to the patient and staff. I personally examined, reviewed labs, diagnostic images/reports, interpretations, treatment plans, discussed patient care with other providers and
family or caregivers (if patient is unable to make decisions), entered orders as appropriate and documented the medical record.
Anticipated Discharge: > 48 hours
Subjective/Interval History
-
Date of Service: September 09, 2024
Patient remains with low blood pressure, tachycardic, on supplemental oxygen.
Objective Data
-
Labs:
Laboratory Results
09/09/24 09/09/24 09/09/24
02:08 05:12 09:00
WBC 8.1
Hgb 7.8 L
Hct 25.6 L
Plt Count 203
PT 20.7 H
INR 1.76
APTT 117.3 H Pending
Sodium 146 H
Potassium 4.6
Chloride 116 H
Carbon Dioxide 15 L
BUN 76 H
Creatinine 3.0 H
Glucose 82
Calcium 7.2 L
Total Bilirubin 2.2 H
AST 833 H*
ALT 529 H*
Alkaline Phosphatase 99
09/09/24
14:30
WBC
Hgb
Hct
Plt Count
PT
INR
APTT Pending
Sodium
Potassium
Chloride
Carbon Dioxide
BUN
Creatinine
Glucose
Calcium
Total Bilirubin
AST
ALT
Alkaline Phosphatase
Vital Signs:
Vital Signs
Temp Pulse Resp BP Pulse Ox
98.0 F 105 19 100/72 98
09/09/24 07:23 09/09/24 06:00 09/09/24 06:00 09/09/24 06:00 09/09/24 06:00
I&O
09/08/24 09/09/24 09/10/24
06:59 06:59 06:59
Intake Total 715 / 715
Balance 715 / 715
[2024-09-09 09:01] LABS: Folate 9.5 ng/ml (2.76-20)
[2024-09-09 09:42] LABS: APTT 46.2 Sec (23.4-35.0)
--- NOTE | 2024-09-09 10:24 | W.PN.GI.CBS2 ---
Today's Communication / Plan
-
no ercp today, monitor labs and clinical status
Assessment / Plan
-
84 yo M pmh NSTEMI 05/2024, a fib on Eliquis, acute mariah s/p perc mariah tube 05/2024, CCY 08/30 p/w lethargy and AMS found in shock cholangitis vs cardiogenic - elevated bili but normal AP (if biliary would expect this to be elevated), elevated
lipase/LFTs (could be from either type of shock), hypotensive, tachycardic, trop leak, stone on MRI per Dr. Kris ty.
Underwent Echo last night:
1. Severe left ventricular dysfunction with multiple regional wall motion
abnormalities as described below, EF 25-30%
2. Thickened mitral leaflets, mitral annular calcification, mild to moderate
mitral regurgitation and dilated left atrium
3. Aortic sclerosis with mild aortic regurgitation
4. Dilated right heart with right ventricular hypokinesis, mild tricuspid
regurgitation and pulmonary artery systolic pressure 55 mmHg
Given these echo findings as well as the fact that he has no leukocytosis, no fever, no right upper quadrant pain, normal alkaline phosphatase, no growth from the blood culture, I suspect cardiogenic shock is driving his process and the stone seen
in the common bile duct is not obstructive. The rise in the AST and ALT as well as the lipase can be seen in any type of shock including cardiogenic. I discussed with the biliary team, windows software engineer, hospitalist, surgeon, RN and plan to hold off on
ERCP at this time as risk outweighed benefit. I also discussed with the family at bedside in detail. We will continue to monitor his fever curve, white blood cell count, bilirubin, cultures. Recommend to continue Zosyn for now and clear liquid
diet. Heparin gtt was resumed.
Total Time Spent with Patient (in minutes): 50
Subjective
Subjective
Date of Service: September 09, 2024
remains ill
Objective
Data Reviewed
Laboratory Data:
Laboratory Results
09/09/24 05:12
Laboratory Results
PT 20.7 Sec (11.4-14.6) H 09/09/24 05:12
INR 1.76 09/09/24 05:12
APTT 46.2 Sec (23.4-35.0) H 09/09/24 09:10
Phosphorus 6.5 mg/dl (2.5-4.5) H 09/09/24 05:12
Magnesium 2.3 mg/dl (1.6-2.3) 09/09/24 05:12
Total Bilirubin 2.2 mg/dl (0.2-1.3) H 09/09/24 05:12
AST 833 U/L (17-59) H* 09/09/24 05:12
ALT 529 U/L (0-50) H* 09/09/24 05:12
Alkaline Phosphatase 99 U/L (38-126) 09/09/24 05:12
Lipase 854 U/L (23-300) H 09/09/24 05:12
Vital Signs and I&O:
Vital Signs
Temp Pulse Resp BP Pulse Ox
98.0 F 123 25 96/68 97
09/09/24 07:23 09/09/24 10:00 09/09/24 10:00 09/09/24 10:00 09/09/24 10:10
I&O
09/08/24 09/09/24 09/10/24
06:59 06:59 06:59
Intake Total 715 / 715
Balance 715 / 715
Physical Exam
Physical Exam
HEENT: Anicteric
Cardiology: Normal Sinus Rhythm
Pulmonary: Clear
GI: Non Distended and Non Tender
[2024-09-09] MEDS: LASIX 80 MG IV (10:42)
[2024-09-09] MEDS: MORPHINE SULFATE IV ×3 (10:48→21:13)
--- NOTE | 2024-09-09 13:02 | W.PN.GS2 ---
Today's Communication / Plan
-
Continue antibiotics
Goals of care discussion.
Supportive care for now for his pancreatitis.
Assessment / Plan
-
This is an 84-year-old male with a history significant for atrial fibrillation on Eliquis last dose Tuesday, CAD, chronic cholecystitis status post percutaneous cholecystostomy tube followed by subtotal fenestrating cholecystectomy on August 30.
He presented to our hospital on 09/07/2024 with lethargy/altered mental status. A CT scan showed a soft tissue thickening around the postsurgical bed but no obvious biloma or abscess. His lipase was elevated consistent with pancreatitis. A
subsequent MRCP demonstrated choledocholithiasis however his bilirubin is not significantly elevated
GI consulted, and they favor a cardiogenic process. No plan for ERCP currently.
Supportive care for pancreatitis.
Agree with antibiotics for now.
Okay for clear liquid diet.
Remainder of care per hospitalist.
If there is no other reversible causes of his current clinical state agree with discussion with family regarding hospice care. Surgery happy to help facilitate any discussion.
General surgery will follow
Time Spent
Total Time Spent with Patient (in minutes): 20
Subjective Data
-
Date of Service: September 09, 2024
Remains critically ill in the ICU
Objective Data
-
Intake and Output
09/08/24 09/09/24 09/10/24
06:59 06:59 06:59
Intake Total 715 / 715
Balance 715 / 715
Intake:
Oral fluids 240 / 240
IV fluids (Total) 375 / 375
IV piggybacks 100 / 100
Other:
Number of approximated LARGE 2
amounts of urine
How many times incontinent 1
MODERATE amount urine
How many times incontinent 4
SATURATED amount urine
Vital Signs
Temp Pulse Resp BP Pulse Ox
97.4 F 124 25 114/75 92
09/09/24 11:00 09/09/24 12:00 09/09/24 12:00 09/09/24 12:00 09/09/24 12:15
Lab Results
09/09/24 05:12
Calcium 7.2 mg/dl (8.4-10.2) L 09/09/24 05:12
Phosphorus 6.5 mg/dl (2.5-4.5) H 09/09/24 05:12
Magnesium 2.3 mg/dl (1.6-2.3) 09/09/24 05:12
Total Bilirubin 2.2 mg/dl (0.2-1.3) H 09/09/24 05:12
AST 833 U/L (17-59) H* 09/09/24 05:12
ALT 529 U/L (0-50) H* 09/09/24 05:12
Alkaline Phosphatase 99 U/L (38-126) 09/09/24 05:12
Total Protein 6.2 g/dl (6.3-8.2) L 09/09/24 05:12
Albumin 2.9 g/dl (3.5-5.0) L 09/09/24 05:12
Physical Exam
-
GENERAL/NEURO: Responds to name, can nod his head appropriately
CHEST: labored breathing on RA
ABDOMEN: Soft, Non-Tender, Non-Distended
Patient has a candelario catheter: No
Patient has a central line: No
--- NOTE | 2024-09-09 15:22 | CM ---
Spoke with the patient's daughter Carrie. Patient lives with the daughter in a one story home with two steps to enter. The patient has a hospital bed, rolling walker, and wheelchair. Pts has [place] care givers daily.
The patient is current with [facility], He has been to [facility] in past.
Pharmacy [facility]
PCP is Dr Manpreet Shaw.
Plan Discharge to home with resumption of [facility] services. Daughter said that MD spoke of Hospice. No consult yet.
[2024-09-09 17:22] LABS: Hemoglobin 7.9 g/dL (13.0-18.0)
[2024-09-09 17:35] LABS: APTT 86.1 Sec (23.4-35.0)
[2024-09-09] MEDS: HEPARIN 25000 UNITS/250 ML IV (18:21)
--- NOTE | 2024-09-09 22:44 | PTCARENOTE ---
received patient from previous RN. Patient voiding frequent large amounts. Patient denied pain medication for 2200. Patient in afib and on heparin gtt at 13. Assessment and vital signs as documented.
[2024-09-09 23:23] LABS: APTT 102.4 Sec (23.4-35.0)
[2024-09-10] VITALS: BP 111/67
[2024-09-10] MEDS: MORPHINE SULFATE 2 MG IV ×2 (01:51→09:45)
[2024-09-10] MEDS: ZOSYN 50 IV ×2 (01:52→07:51)
[2024-09-10 02:00] VITALS: BP 101/77
[2024-09-10 03:00] VITALS: BMI 21.8
[2024-09-10 04:00] VITALS: BP 104/70
[2024-09-10 05:40] LABS: Hematocrit 26.6 % (39.0-52.0); Hemoglobin 8.2 g/dL (13.0-18.0); Mean Corp Hgb Conc. 30.8 g/dL (33.0-37.0); Mean Corpuscular Hgb 24.8 pg (27.0-31.0); Mean Corpuscular Volume 80.4 fL (80.0-94.0); Mean Platelet Volume 10.9 fL (7.4-10.4); Platelet Count 209 10^3/uL (130-400); Red Blood Cell Count 3.31 10^6/uL (4.70-6.10); White Blood Cell Count 8.5 10^3/uL (4.8-10.8)
[2024-09-10 06:01] LABS: ALT (SGPT) 616 U/L (0-50); Albumin 3.2 g/dl (3.5-5.0); Alkaline Phosphatase 145 U/L (38-126); Blood Urea Nitrogen 101 mg/dl (9-20); Carbon Dioxide 20 mmol/L (22-30); Chloride 112 mmol/L (98-107); Glucose 113 mg/dl (70-99); Potassium 4.7 mmol/L (3.5-5.1); Sodium 150 mmol/L (135-145); Total Bilirubin 2.6 mg/dl (0.2-1.3); Total Protein 7.4 g/dl (6.3-8.2)
[2024-09-10 06:18] LABS: AST (SGOT) 848 U/L (17-59); Estimated Creatinine Clearance 12 ml/min; eGFR 13.48
[2024-09-10] MEDS: MORPHINE SULFATE IV (06:35)
--- NOTE | 2024-09-10 06:48 | W.PN.HOSP.TC ---
Addendum entered and electronically signed by Javed Berger MD 09/11/24 08:10:
Stage 2 sacral pressure injury, POA
Original Note:
Today's Communication/Plan
-
Hospice Eval
Comfort Care Measures
Likely downgrade to med/surg later today
Assessment / Plan
Assessment / Plan
Physical exam:
General: No acute distress appears comfortable at this time
HEENT: Normocephalic, Atraumatic and Moist Mucous Membranes
Respiratory: clear to auscultation b/l; Negative Wheezes, or Rhonchi
Cardiac: Irregular rate and rhythm, tachycardic, and S1/S2
GI: Soft, Nontender and Nondistended
Musculoskeletal: No Clubbing, No Cyanosis. Bilateral lower extremity edema
Neuro: Awake, Alert, conversive though speaks minimally at a time
Psych: Calm cooperative
Echocardiogram:
CONCLUSIONS
1. Severe left ventricular dysfunction with multiple regional wall motion
abnormalities as described below, EF 25-30%
2. Thickened mitral leaflets, mitral annular calcification, mild to moderate
mitral regurgitation and dilated left atrium
3. Aortic sclerosis with mild aortic regurgitation
4. Dilated right heart with right ventricular hypokinesis, mild tricuspid
regurgitation and pulmonary artery systolic pressure 55 mmHg
The ejection fraction was 55-60% in May 2024. In 2012 the ejection
fraction was 35-40%. The pulmonary artery pressure was normal in May
2023.
A/P:
80M Romanian Speaking Dementia afib CAD NSTEMI chronic cholecystitis s/p cholecystectomy here for cardiogenic shock.
Cardiogenic shock:
Likely cardiogenic shock. Cannot rule out septic
treated empirically with IV antibiotics
Echocardiogram reviewed
Cortisol levels appropriate
Cardio eval appreciated prognosis poor, hospice appropriate. Daughter JESUS Wick in agreement with pursuing hospice comfort care measures, requesting to prioritize patient's comfort in his remaining time and to stop measures/treatments/interventions
that may prolong patient's situation. Hospice eval requested and care updated to comfort care accordingly.
Acute systolic congestive heart failure:
Off IV fluid
IV Lasix 80 mg IV x 1 attempted, significant weight loss but also significant worsening in kidney function following attempt.
CT chest CXR consistent with severe pulm edema, pneumonia less likely
Elevated BNP
Normal TSH
Cardiology on board
Acute hypoxic respiratory failure:
cont nasal cannula oxygen supplementation
RAFAL on CKD IV:
Likely related to cardiogenic shock and hypoperfusion to the kidneys
Not a candidate for hemodialysis
further worsen following Lasix diuresis
Elevated troponin:
Significant elevated troponin although less than few months ago
Initial EKG with significant depression of ST-T changes in lateral leads and follow-up less depressed as present in the past.
treated empirically with hep gtt since discontinued in favor of comfort measures as above
Permanent atrial fibrillation with rapid ventricular response:
hep gtt completed as above
Unable to use rate control due to hemodynamic instability
Elevated LFTs due to shock liver and less likely a component of choledocholithiasis; Doubt Cholangitis:
GI consult appreciated
Surgery consult appreciated
Recent subtotal, fenestrating laparoscopic cholecystectomy on 08/30 for chronic cholecystitis
Choledocholithiasis:
See above
MRCP reviewed
GI eval appreciated
Metabolic acidosis:
Hyperkalemia resolved
Hypernatremia
Anemia
CODE STATUS:
DNR
Poor Prognosis Hospice Appropriate
Comfort care
I spent a total of 60 minutes with the patient or on the floor. More than 50% of this time involved counseling and coordination of care.
Anticipated Discharge: Within 24 hours
Subjective/Interval History
-
Date of Service: September 10, 2024
no acute distress. Appears comfortable this time. Alert conversive in Romanian (daughter Shamika at bedside providing translation)
Objective Data
-
Labs:
Laboratory Results
09/09/24 09/10/24
23:03 05:04
WBC 8.5
Hgb 8.2 L
Hct 26.6 L
Plt Count 209
APTT 102.4 H 138.0 H
Sodium 150 H
Potassium 4.7
Chloride 112 H
Carbon Dioxide 20 L
BUN 101 H*
Creatinine 4.1 H*
Glucose 113 H
Calcium 8.0 L
Total Bilirubin 2.6 H
AST 848 H*
ALT 616 H*
Alkaline Phosphatase 145 H
Vital Signs:
Vital Signs
Temp Pulse Resp BP Pulse Ox
97.7 F 117 20 104/70 97
09/10/24 03:00 09/10/24 04:00 09/10/24 04:00 09/10/24 04:00 09/10/24 04:00
I&O
09/08/24 09/09/24 09/10/24
06:59 06:59 06:59
Intake Total 715 / 715
Balance 715 / 715
[2024-09-10] MEDS: PROTONIX IV 40 MG IV (07:52)
[2024-09-10] MEDS: NSS (PRESERVATIVE FREE) 10 ML IV (07:52)
[2024-09-10 08:50] LABS: Absolute Neutrophils -Man Diff 5.6 10^3/uL (1.4-6.5); Anisocytosis 1+; Band Neutrophils 5 % (0-3); Lymphocytes 151 % (20-51); Metamyelocytes 1 % (-); Monocytes 15 % (2-9); Myelocytes 3 % (-); Normal RBC Morphology No; Nucleated Red Blood Cells 3 (-); Platelets Checked Yes; Polychromasia 1+; Segmented Neutrophils 61 % (42-75)
[2024-09-10 08:51] LABS: Total Cells Counted 100
--- NOTE | 2024-09-10 08:52 | W.PN.CARDCBS ---
Today's Communication / Plan
-
Recommend transition to comfort care, daughter seems agreeable
Stop heparin
Will sign off, please call if questions
Impression / Plan
-
Impression:
Acute choledocholithiasis
Non-ST segment elevation PR, troponin 9.75
History of cardiomyopathy with improved EF
Episode of acute heart failure with improved EF May 2024, peak troponin 18,100
Recent cholecystectomy, now with acute choledocholithiasis and common bile duct by MRCP
Possible pancreatitis
Permanent atrial fibrillation
History of cardiomyopathy with improved EF
Alzheimer's dementia
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
Gout
History of bilateral strokes
Hypercholesterolemia
Hypertension
Anemia
Echocardiogram May 2024: EF 55-60%, mild LVH, normal RV, dilated left atrium, mild mitral regurgitation, mild aortic regurgitation, pulmonary artery systolic pressure 25-30 mmHg
Echocardiogram 09/08/2024: Severe LV dysfunction, EF 25-30%, global hypokinesis, apical septal, apical anterior, apical lateral and apical akinesis, anterior wall, basal and mid septal segments severely hypokinetic, dilated RV with hypokinesis,
dilated left atrium and right atrium, thickened mitral leaflets, MAC, mild to moderate MR, aortic sclerosis with mild aortic regurgitation, pulmonary artery systolic pressure 55 mmHg
Plan:
Unfortunately, he has worsening heart failure on exam, heart rate is up, more tachypneic, acute kidney injury continues and creatinine continues to rise substantially implying GFR close to 0. He did not respond to IV Lasix yesterday.
Given PR, LV dysfunction, A-fib with incipient cardiogenic shock, with evidence of worsening alk phos and LFTs, prognosis is very poor.
Prognosis is very poor, and daughter does not want aggressive care.
It is appropriate to transition to comfort measures/hospice. Continue IV morphine. Daughter seems agreeable.
Stop heparin.
We will sign off, please call if questions.
Progress Note - Manager Roofing
Subjective
Date of Service: September 10, 2024:
He complains of some shortness of breath and some abdominal pain, but seems controlled on morphine
IV heparin, Zosyn, pantoprazole IV, morphine Q4
104/70, pulse 117, resp rate is 20 which is increased, afebrile, sats are 97% on 3 L, lungs are surprisingly clear, irregular rate and rhythm, tachycardic, JVD hard to assess, not much edema
Chest x-ray yesterday worsening pulmonary edema, weight is 67 kg, if accurate down 6.6 kg
Hemoglobin is 8.2 platelets are 209, creatinine is 4.1, had been 3.0, BUN is 101, AST is 848, ALT is 616, alkaline phosphatase now 145, bicarbonate is 20 bilirubin is 2.6, had been 2.2
Objective
Labs:
09/10/24 05:04
09/10/24 05:04
Labs
Hgb 8.2 g/dL (13.0-18.0) L 09/10/24 05:04
Hct 26.6 % (39.0-52.0) L 09/10/24 05:04
Plt Count 209 10^3/uL (130-400) 09/10/24 05:04
PT 20.7 Sec (11.4-14.6) H 09/09/24 05:12
INR 1.76 09/09/24 05:12
APTT 138.0 Sec (23.4-35.0) H 09/10/24 05:04
Sodium 150 mmol/L (135-145) H 09/10/24 05:04
Potassium 4.7 mmol/L (3.5-5.1) 09/10/24 05:04
BUN 101 mg/dl (9-20) H* 09/10/24 05:04
Creatinine 4.1 mg/dL (0.7-1.3) H* 09/10/24 05:04
Glucose 113 mg/dl (70-99) H 09/10/24 05:04
Troponins
09/07/24 09/08/24 09/09/24
15:38 14:57 05:12
Troponin I 9.750 H* 9.270 H* 7.990 H*
Vital Signs and I&O:
Vital Signs
Temp Pulse Resp BP Pulse Ox
36.3 C 117 20 104/70 97
09/10/24 07:31 09/10/24 04:00 09/10/24 04:00 09/10/24 04:00 09/10/24 04:00
Vital Signs
Temp Pulse Resp BP Pulse Ox
36.3 C 117 20 104/70 97
09/10/24 07:31 09/10/24 04:00 09/10/24 04:00 09/10/24 04:00 09/10/24 04:00
Intake & Output
09/08/24 09/09/24 09/10/24 09/11/24
07:59 07:59 07:59 07:59
Intake Total 715 / 715
Balance 715 / 715
Physical Exam
Physical Exam
See above
--- NOTE | 2024-09-10 09:58 | W.PN.GI.CBS2 ---
Today's Communication / Plan
-
trend labs, fever curve
Assessment / Plan
-
84 yo M pmh NSTEMI 05/2024, a fib on Eliquis, acute mariah s/p perc mariah tube 05/2024, CCY 08/30 p/w lethargy and AMS found in shock cholangitis vs cardiogenic - elevated bili but normal AP (if biliary would expect this to be elevated), elevated
lipase/LFTs (could be from either type of shock), hypotensive, tachycardic, trop leak, stone on MRI.
Underwent Echo 09/08:
1. Severe left ventricular dysfunction with multiple regional wall motion
abnormalities as described below, EF 25-30%
2. Thickened mitral leaflets, mitral annular calcification, mild to moderate
mitral regurgitation and dilated left atrium
3. Aortic sclerosis with mild aortic regurgitation
4. Dilated right heart with right ventricular hypokinesis, mild tricuspid
regurgitation and pulmonary artery systolic pressure 55 mmHg
Given these echo findings as well as the fact that he has no leukocytosis, no fever, no right upper quadrant pain, normal alkaline phosphatase, no growth from the blood culture, I suspect cardiogenic shock is driving his process and the stone seen
in the common bile duct is not obstructive. The rise in the AST and ALT as well as the lipase can be seen in any type of shock including cardiogenic. I discussed with the biliary team, polysomnography tech, hospitalist, surgeon, RN on 09/09 and plan to
hold off on ERCP at this time as risk outweighed benefit. I also discussed with the family at bedside in detail 09/09. We will continue to monitor his fever curve, white blood cell count, bilirubin, cultures. Slight increase in bili today 09/10.
Recommend to continue Zosyn for now and clear liquid diet. Heparin gtt was resumed.
Subjective
Subjective
Date of Service: September 10, 2024
No pain
Objective
Data Reviewed
Laboratory Data:
Laboratory Results
09/10/24 05:04
09/10/24 05:04
Laboratory Results
PT 20.7 Sec (11.4-14.6) H 09/09/24 05:12
INR 1.76 09/09/24 05:12
APTT 138.0 Sec (23.4-35.0) H 09/10/24 05:04
Phosphorus 6.5 mg/dl (2.5-4.5) H 09/09/24 05:12
Magnesium 2.3 mg/dl (1.6-2.3) 09/09/24 05:12
Total Bilirubin 2.6 mg/dl (0.2-1.3) H 09/10/24 05:04
AST 848 U/L (17-59) H* 09/10/24 05:04
ALT 616 U/L (0-50) H* 09/10/24 05:04
Alkaline Phosphatase 145 U/L (38-126) H 09/10/24 05:04
Lipase 854 U/L (23-300) H 09/09/24 05:12
Vital Signs and I&O:
Vital Signs
Temp Pulse Resp BP Pulse Ox
97.3 F 117 20 104/70 97
09/10/24 07:31 09/10/24 04:00 09/10/24 04:00 09/10/24 04:00 09/10/24 04:00
I&O
09/09/24 09/10/24 09/11/24
06:59 06:59 06:59
Intake Total 715 / 715
Balance 715 / 715
Physical Exam
Physical Exam
HEENT: Other (sob)
Cardiology: Normal Sinus Rhythm
Pulmonary: Clear
GI: Non Distended and Non Tender
--- NOTE | 2024-09-10 11:21 | CM ---
Addendum entered by Bita Alcantara RN 09/10/24 12:40:
Per Luann, patient will be going home tomorrow with Hospice- Luann agrees to 12:30pm transport time. She will order hospital bed for delivery.
Spoke with daughter Shamika; she agrees to discharge tomorrow with Hospice at 12:30pm by ambulance. IMM completed.
Dr Berger signed the [facility] DNR.
Plan home tomorrow with Hospice by ambulance at 12:30pm.
Original Note:
[place] speaking patient with Hx dementia. Comfort care.
Consult: Hospice
Met with patient and daughter Shamika;
patient remained sleeping.
Explained hospice philosophy & benefits.
Daughter would like the patient to return home with hospice.
Daughter is already the caregiver for her mother at home and feels she can adequately manage her father at home as well.
Daughter was made aware that the patient would require 24 hr care- daughter says she has help at home by a caregiver.
She would like a hospital bed and is aware ambulance transport would be setup.
Spoke with [facility] re; referral.
Plan follow up after seen by Hospice.
[2024-09-10 11:34] VITALS: BMI 21.8
[2024-09-10] MEDS: ZOFRAN 4 MG IV ×2 (11:58→22:40)
[2024-09-10] MEDS: DILAUDID 0.5 MG IV ×5 (11:58→23:42)
--- NOTE | 2024-09-10 12:52 | HOSPNOTE ---
Met with daughter and explained hospice and the philosophy. The daughter would like patient home tomorrow via ambulance which is scheduled for 12:30am. Equipment was ordered and will be delivered in the am. Attending and CM aware. Once patient
arrives home one of our nurses will sign patient onto hospice services.
--- NOTE | 2024-09-10 12:54 | PN.CDI ---
CDI
- -
CDI:
Physician Documentation Request
Admit Date: 09/07/24 20:37
Dear Doctor Ab,
Patient admitted with cardiogenic shock.
09/07 Nursing skin assessment, 'Stage 2 sacral pressure injury, POA.'
Physician documentation of the type and location of wounds is required for compliant documentation. Based on the above clinical findings and your assessment, please provide the following in your progress note:
Type (etiology) of ulcer/wound:
- Pressure (decubitus) ulcer
- Other
- Unable to determine
For a pressure ulcer, please also include the stage* of the ulcer:
- Stage 1 - Skin intact, non-blanchable redness
- Stage 2 - Partial thickness loss of dermis, includes intact or open blister
- Stage 3 - Full thickness tissue not including bone, tendon or muscle
- Stage 4 - Full thickness tissue loss, including exposed bone, tendon or muscle
- Unstageable - Full thickness loss in which the base of the ulcer is covered by slough (yellow, prescott, ravi, green or brown) and/or eschar (prescott, brown or black) in the wound bed.
- Unable to determine
Use of terms such as suspected, likely, concern for, or probable (associated with a specific diagnosis that is being evaluated, monitored, or treated as if it exists) are acceptable and can be coded in the inpatient setting, when documented at the
time of discharge.
Thank you,
Lauren HERNANDEZ,RN,CCDS
CDI Specialist
Available via [facility] text
Please use your independent medical judgment in providing your response.
*Source: National Pressure Ulcer Advisory Panel (NPUAP)
--- NOTE | 2024-09-10 15:23 | PTCARENOTE ---
Pt transferred to comfort care. pt moving to [address] [place] [address] [id number]. Report given to Sylvia.
[2024-09-10 16:05] VITALS: BP 120/74
--- NOTE | 2024-09-10 16:15 | PTCARENOTE ---
Received patient to [address] [place] [address] approx 4 pm via transport. Patient appears comfortable, had a wet brief which was changed, red groin and calazime cream was applied. Dghtr Carrie at bedside, provided patient with water and jello while dghtr called in his
dinner order.
--- NOTE | 2024-09-10 17:24 | W.PN.UPDATE ---
Update Note
Progress Note Update
patient comfort care notes reviewed will sign off pls call with ?s
[2024-09-10 20:24] VITALS: BP 114/78
[2024-09-10] MEDS: FLUSH (NSS) 4 FLUSH IV ×3 (21:25→23:43)
[2024-09-10] MEDS: ATIVAN 0.5 MG PO ×2 (21:25→23:42)
[2024-09-10] MEDS: ROBINUL 0.2 MG IV (22:40)
[2024-09-11] MEDS: DILAUDID 0.5 MG IV (01:57)
[2024-09-11] MEDS: FLUSH (NSS) 4 FLUSH IV (01:58)
[2024-09-11] MEDS: ATIVAN 0.5 MG IV (01:58)
--- NOTE | 2024-09-11 02:47 | PTCARENOTE ---
noticed change in breathing with pt with slight agitation pulling at sheets medicated with prns's pt then comfortable notified daughter that change in breathing and mottling was occurring and daughter came in but not before pt at 0224-
computed tomography technician up to pronounce- family at bedside. . support given.
--- NOTE | 2024-09-11 03:24 | W.PN.DEATH ---
Pronouncement of
-
Called to see patient to pronounce.
No spontaneous heart tones or respirations noted.
Patient not responsive to verbal stimuli.
Patient is pronounced .
Time of : 02:24
Date of : 09/11/24
Cause of : Cardiogenic shock, Acute systolic congestive heart failure, Acute hypoxic respiratory failure, Acute kidney injury on chronic kidney disease
Family Notified: Yes (at bedside)
--- NOTE | 2024-09-11 04:11 | PTCARENOTE ---
[facility] notified. will not use organs. body prepared and taken to [facility]
--- NOTE | 2024-09-11 08:08 | W.DCSUMMARY ---
Discharge Summary
Discharge Data
Date of Admission: 09/07/24
Date of Discharge: 09/11/24
-
Pending Results: No
Discharge Plan
-
Patient Disposition:
Date/Time
Date/Time: 09/11/24 02:24
Discharge Date and Time
Discharge Date/Time: 09/11/24 04:05
Print Language: HAITIAN
== END 2024-09-11 02:24 | disposition expired ==
LOC: 2 NORTH 20:37
PROVIDERS: Emergency Medicine; Hospitalist; Nurse Practitioner; ADMITTING PHYSICIAN Internal Medicine; ATTENDING PHYSICIAN Internal Medicine; CONSULT PHYSICIAN Internal Medicine Cardiovascular Disease; CONSULT PHYSICIAN Internal Medicine Gastroenterology; CONSULT PHYSICIAN Surgery; EMERGENCY PHYSICIAN Emergency Medicine; FAMILY PHYSICIAN Family Medicine
DX: I21.4 Non-ST elevation (NSTEMI) myocardial infarction (principal); I50.21 Acute systolic (congestive) heart failure; J96.01 Acute respiratory failure with hypoxia; K85.90 Acute pancreatitis without necrosis or infection, unspecified; N17.9 Acute kidney failure, unspecified; I13.0 Hypertensive heart and chronic kidney disease with heart failure and stage 1 through stage 4 chronic kidney disease, or unspecified chronic kidney disease; N18.4 Chronic kidney disease, stage 4 (severe); I48.21 Permanent atrial fibrillation; J98.11 Atelectasis; F02.83 Dementia in other diseases classified elsewhere, unspecified severity, with mood disturbance; F02.84 Dementia in other diseases classified elsewhere, unspecified severity, with anxiety; E87.20 Acidosis, unspecified; E87.0 Hyperosmolality and hypernatremia; I42.8 Other cardiomyopathies; R57.0 Cardiogenic shock; L89.152 Pressure ulcer of sacral region, stage 2; I25.10 Atherosclerotic heart disease of native coronary artery without angina pectoris; Z79.01 Long term (current) use of anticoagulants; Z90.49 Acquired absence of other specified parts of digestive tract; Z87.891 Personal history of nicotine dependence; Z79.82 Long term (current) use of aspirin; Z66 Do not resuscitate; K80.50 Calculus of bile duct without cholangitis or cholecystitis without obstruction; I25.2 Old myocardial infarction; K59.00 Constipation, unspecified; F32.A Depression, unspecified; G30.1 Alzheimer's disease with late onset; K21.9 Gastro-esophageal reflux disease without esophagitis; M10.9 Gout, unspecified; Z79.899 Other long term (current) drug therapy; R79.1 Abnormal coagulation profile; I34.0 Nonrheumatic mitral (valve) insufficiency; Z86.73 Personal history of transient ischemic attack (TIA), and cerebral infarction without residual deficits; E78.00 Pure hypercholesterolemia, unspecified; D63.1 Anemia in chronic kidney disease; I34.81 Nonrheumatic mitral (valve) annulus calcification; I70.0 Atherosclerosis of aorta; E87.5 Hyperkalemia; Z11.52 Encounter for screening for COVID-19
CPT/HCPCS: 71045; 71250; 74176; 74181; 80048; 80053; 82533; 82607; 82728; 82746; 83540; 83550; 83605; 83690; 83735; 83880; 84100; 84443; 84484; 85018; 85025; 85027; 85610; 85730; 87040; 87502; 87811; 93005; 93306; 96361; 96365; 96367; 96375; 99285; J7030